=== PATIENT | male | born 1985 | race Two or more races ===

== ENCOUNTER 2020-03-27 23:35 | Emergency (ER) | payer MEDICAID, SELFPAY ==
[2020-03-28 00:21] VITALS: BP 178/91; PULSE 88; RESP 16; TEMP 36.2; O2SAT 97; BMI 43.4
--- NOTE | 2020-03-28 01:16 | ED_ITS ---
HPI - General Adult General Chief complaint: General Medical Stated complaint: MULTIPLE COMPLAINTS Time Seen by Provider: 03/28/20 01:15 History of Present Illness HPI narrative: Patient is a 34-year-old male with a history of diabetes presented today with having epigastric pain in the area near his ventral hernia repair. No fever no chills no cough no congestion. No nausea no vomiting. No change in stool color. Patient also complaining of bilateral leg swelling. No chest pain. No shortness of breath. No diaphoresis. No orthopnea. No paroxysmal nocturnal dyspnea. Patient's symptom has been ongoing for months. No changes in condition. Presented today because of these symptoms. There has been no change in patient's medication. Patient denies having any fever. Related Data Allergies Allergy/AdvReac Type Severity Reaction Status Date / Time lactose [LACTOSE] Allergy Intermediate GI UPSET Verified 03/28/20 00:30 Review of Systems Review of Systems: Constitutional: No Weight loss, No Fever, No Chills, No Night Sweats, No Fatigue, No Malaise ENT/Mouth: No Hearing loss, No Ear Pain, No Nasal Congestion, No Sinus Pain, No Hoarseness, No sore throat, No Rhinorrhea, No Swallowing Difficulty Eyes: No Eye Pain, No Swelling, No Redness, No Foreign Body, No Discharge, No Vision Changes Cardiovascular: No Chest Pain, No SOB, No Dyspnea on Exertion, No Orthopnea, No Edema, No Palpitations Respiratory: No Cough, No Sputum, No Wheezing, No Smoke Exposure, No Dyspnea Gastrointestinal: No Nausea, No Vomiting, No Diarrhea, No Constipation, positive abdominal Pain, No Hematochezia, No Melena Genitourinary: no irregular bleeding, No Dysuria, No Urinary Frequency, No Hematuria, No Urinary Incontinence, No Urgency, No Flank Pain, No Urinary Flow Changes, No Hesitancy Musculoskeletal: No joint pain, No Myalgias, No Joint Swelling Skin: No Skin Lesions, positive bilateral lower extremity swelling Neuro: No Weakness, No Numbness, No Paresthesias, No Loss of Consciousness, No Dizziness, No Headache Psych: No Anxiety/Panic, No Depression, No SI/HI/AH/VH, No Social Issues, Heme/Lymph: No Bruising, No Bleeding,No Lymphadenopathy Endocrine: No Polyuria, No Polydipsia, No Temperature Intolerance [facility] Past Medical History Attestation statement: The following information was validated with the patient. Medical History Borderline diabetes Hypertension Pelvic fracture Sleep apnea Surgical History History of hernia repair Social History Social History Advance Directives: No Advance Directives Information Provided: No Physical Exam Vital Signs: Vital Signs: Last Vital Signs Temp 97.9 F 03/28/20 04:33 Pulse 70 03/28/20 04:33 Resp 18 03/28/20 04:33 BP 138/90 H 03/28/20 04:33 Pulse Ox 96 03/28/20 04:33 Body Mass Index 43.4 Appearance: Alert. Oriented X3. No acute distress. Eyes: Pupils equal, round and reactive to light. ENT: Pharynx normal. Neck: Normal inspection. Neck supple. No lymph nodes noted. No crepitus CVS: Normal heart rate and rhythm. Pulses normal. Normal S1 and S2 Respiratory: No respiratory distress. Breath sounds normal. No Wheezing. No ra les Abdomen: Positive old midline scar, Soft and nontender. No rigidity. No distention. good BS x4 Skin: Skin warm and dry. Normal skin color. Normal skin turgor. Extremities: Positive lower extremity edema. Neurovascular intact to all extremities. No Lacerations. No Rash Neuro: Oriented X 3. No motor deficit. No sensory deficit. Moving all extermities. No slurred speech Medical Decision Making MDM Narrative Medical decision making narrative: CT of the abdomen did not show any acute absc ess/perforation. Ventral hernia noted. No evidence for obstruction. Patient in no distress. BNP was normal. No evidence for congestive heart failure. Patient's legs swelling has been chronic in nature. LFTs are normal. Unlikely to be secondary DVT as it was bilateral. Will discharge patient home. Close follow-up on an outpatient basis. Lab Data Result diagrams: 03/28/20 02:08 03/28/20 02:08 Labs: Lab Results 03/28/20 03/28/20 03/28/20 Range/Units 02:08 02:08 02:08 WBC 10.0 (4.8-10.8) X10*3/uL RBC 4.68 (4.60-5.80) X10*6/uL Hgb 13.2 L (14.0-18.0) g/dl Hct 40.3 L (42-52) % MCV 86.1 (80-98) fL MCH 28.2 (27.0-33.0) pg MCHC 32.8 (31.0-36.0) g/dl RDW 13.3 (11.0-16.0) % Plt Count 234 (160-400) X10*3/uL MPV 9.9 (9.4-12.4) fL Immature Gran % (Auto) 0.7 H (0.0-0.4) % Neut % (Auto) 52.0 (45-73) % Lymph % (Auto) 34.7 (20-40) % [place] % (Auto) 10.1 (2-11) % Eos % (Auto) 2.0 (0-4) % Baso % (Auto) 0.5 (0-2) % Lymph # (Auto) 3.5 (1.2-4.9) X10*3/uL [place] # (Auto) 1.0 (0.1-1.2) X10*3/uL Eos # (Auto) 0.2 (0.0-0.4) X10*3/uL Baso # (Auto) 0.1 (0.0-0.2) X10*3/uL Abs Immat Gran (auto) 0.07 H (0.00-0.03) X10*3/uL Absolute Neuts (auto) 5.2 (2.0-8.3) X10*3/uL Absolute Nucleated RBC 0.000 (0.0-0.012) X10*3/uL Nucleated RBC % (auto) 0.0 (0.0-0.2) /100WBC Sodium 137 (135-145) mmol/L Potassium 3.7 (3.3-5.1) mmol/l Chloride 101 (96-108) mmol/L Carbon Dioxide 27 (22-29) mmol/L Anion Gap 13 (12-20) BUN 16 (9-16) mg/dL Creatinine 0.88 (0.5-1.4) mg/dL Estim Creat Clear Calc 157.1 Estimated GFR > 60 Random Glucose 120 H (60-115) mg/dL Calcium 8.1 L (8.4-10.2) mg/dL Total Bilirubin 0.2 (0.0-1.0) mg/dL Direct Bilirubin < 0.2 (0.0-0.5) mg/dL AST 27 (5-37) U/L ALT 51 H (0-40) U/L Alkaline Phosphatase 85 (39-117) U/L B-Natriuretic Peptide 32 (<100) pg/mL Total Protein 6.7 (6.5-8.0) g/dL Albumin 4.1 (3.5-5.0) g/dL Lipase 26 (8-78) U/L Urine Color Urine Appearance Urine pH (5.0-8.0) Ur Specific [place] (1.005-1.025) Urine Protein (NEG-TRACE) MG/DL Urine Glucose (UA) (NEG) MG/DL Urine Ketones (NEG) MG/DL Urine Blood (NEG) Urine Nitrite (NEG) Ur Leukocyte Esterase (NEG) 03/28/20 Range/Units 04:23 WBC (4.8-10.8) X10*3/uL RBC (4.60-5.80) X10*6/uL Hgb (14.0-18.0) g/dl Hct (42-52) % MCV (80-98) fL MCH (27.0-33.0) pg MCHC (31.0-36.0) g/dl RDW (11.0-16.0) % Plt Count (160-400) X10*3/uL MPV (9.4-12.4) fL Immature Gran % (Auto) (0.0-0.4) % Neut % (Auto) (45-73) % Lymph % (Auto) (20-40) % [place] % (Auto) (2-11) % Eos % (Auto) (0-4) % Baso % (Auto) (0-2) % Lymph # (Auto) (1.2-4.9) X10*3/uL [place] # (Auto) (0.1-1.2) X10*3/uL Eos # (Auto) (0.0-0.4) X10*3/uL Baso # (Auto) (0.0-0.2) X10*3/uL Abs Immat Gran (auto) (0.00-0.03) X10*3/uL Absolute Neuts (auto) (2.0-8.3) X10*3/uL Absolute Nucleated RBC (0.0-0.012) X10*3/uL Nucleated RBC % (auto) (0.0-0.2) /100WBC Sodium (135-145) mmol/L Potassium (3.3-5.1) mmol/l Chloride (96-108) mmol/L Carbon Dioxide (22-29) mmol/L Anion Gap (12-20) BUN (9-16) mg/dL Creatinine (0.5-1.4) mg/dL Estim Creat Clear Calc Estimated GFR Random Glucose (60-115) mg/dL Calcium (8.4-10.2) mg/dL Total Bilirubin (0.0-1.0) mg/dL Direct Bilirubin (0.0-0.5) mg/dL AST (5-37) U/L ALT (0-40) U/L Alkaline Phosphatase (39-117) U/L B-Natriuretic Peptide (<100) pg/mL Total Protein (6.5-8.0) g/dL Albumin (3.5-5.0) g/dL Lipase (8-78) U/L Urine Color YELLOW Urine Appearance CLEAR Urine pH 6.5 (5.0-8.0) Ur Specific [place] 1.025 (1.005-1.025) Urine Protein NEG (NEG-TRACE) MG/DL Urine Glucose (UA) NEG (NEG) MG/DL Urine Ketones NEG (NEG) MG/DL Urine Blood NEG (NEG) Urine Nitrite NEG (NEG) Ur Leukocyte Esterase NEG (NEG) Discharge Plan Discharge Clinical Impression: Ventral hernia Patient Disposition: Home, Self-Care Instructions: Leg Edema (ED), Ventral Hernia (ED) Referrals: [facility] [Primary Care Provider] - 2 days
--- NOTE | 2020-03-28 01:24 | CT_ITS ---
EXAMINATION: CT ABDOMEN AND PELVIS WITH CONTRAST CLINICAL INFORMATION: Abdominal pain. COMPARISON: 02/25/2019. TECHNIQUE: Contiguous axial thin section helical images of the abdomen and pelvis were performed following the administration of 85 mL of intravenous Omnipaque 350. The data set was reformatted in the coronal and sagittal planes and reviewed on an independent workstation. DLP: 1095 mGy-cm. FINDINGS: The visualized lung bases are clear. The visualized portions of the heart are unremarkable. The liver is of normal size and attenuation without focal lesions nor intrahepatic biliary ductal dilation. A normal gallbladder is identified. There is no wall thickening or discernible pericholecystic fluid. The spleen, pancreas, adrenal glands are unremarkable. Both kidneys are of normal size and attenuation without hydronephrosis or nephrolithiasis. Following the administration of IV contrast, prompt symmetric nephrograms are displayed. There is no abdominal free fluid. There is neither mesenteric nor retroperitoneal lymphadenopathy. Again identified is a fat-containing supraumbilical midline ventral hernia with infiltration noted about the herniated fat. There is no bowel herniation. Normal unopacified loops of small and large bowel are identified. There is no pelvic free fluid. The urinary bladder is unremarkable. There is neither pelvic nor inguinal lymphadenopathy. Bone windows: Neither sclerotic nor lytic bone lesions are identified. CT/CT abdomen pelvis w con IMPRESSION: Fat-containing supraumbilical midline ventral hernia with fatty infiltration. No evidence for bowel herniation or obstruction. Automated exposure control (Care Dose) Adjustment of the mA and/or kv according to patient size (this includes techniques or standardized protocols for targeted exams where dose is matched to indication / reason for exam; i.e. extremities or head).
[2020-03-28 02:17] VITALS: BP 141/69; PULSE 72; RESP 17; TEMP 36.8; O2SAT 96
[2020-03-28 02:26] LABS: Basophils Absolute Auto 0.1 X10*3/uL (0.0-0.2); Basophils Percent Auto 0.5 % (0-2); Eosinophils Absolute Auto 0.2 X10*3/uL (0.0-0.4); Hematocrit 40.3 % (42-52); Hemoglobin 13.2 g/dl (14.0-18.0); Imm Gran Abs Auto 0.07 X10*3/uL (0.00-0.03); Imm Gran Pct Auto 0.7 % (0.0-0.4); Lymphocytes Absolute Auto 3.5 X10*3/uL (1.2-4.9); Lymphocytes Percent Auto 34.7 % (20-40); Mean Corpuscular HGB Conc 32.8 g/dl (31.0-36.0); Mean Corpuscular Hemoglobin 28.2 pg (27.0-33.0); Mean Corpuscular Volume 86.1 fL (80-98); Mean Platelet Volume 9.9 fL (9.4-12.4); Monocytes Percent Auto 10.1 % (2-11); Neutrophils Absolute Auto 5.2 X10*3/uL (2.0-8.3); Platelet Count 234 X10*3/uL (160-400); Red Blood Count 4.68 X10*6/uL (4.60-5.80); Red Cell Distribution Width 13.3 % (11.0-16.0)
[2020-03-28 02:27] LABS: MANUAL DIFF FLAG NO
[2020-03-28] MEDS: ondansetron HCL 4 MG/2 ML VIAL IVPUSH (02:41)
[2020-03-28] MEDS: 0.9 % Sodium Chloride 1,000 ML 999 ML IVCONT (02:41)
--- NOTE | 2020-03-28 02:41 | PC.NURSE ---
Pt medicated with Normal Saline 1Liter and Zofran 4mg as ordered. 20gauge IV access established in left AC.
[2020-03-28 02:55] LABS: Alanine Aminotransferase 51 U/L (0-40); Albumin Level 4.1 g/dL (3.5-5.0); Alkaline Phosphatase 85 U/L (39-117); Anion Gap 13 (12-20); Aspartate Amino Transferase 27 U/L (5-37); Bilirubin Direct < 0.2 mg/dL (0.0-0.5); Bilirubin Total 0.2 mg/dL (0.0-1.0); Blood Urea Nitrogen 16 mg/dL (9-16); Calcium 8.1 mg/dL (8.4-10.2); Carbon Dioxide 27 mmol/L (22-29); Chloride 101 mmol/L (96-108); Creatinine Clr Calc Pharmacy 157.1; Estimated Glomerular Filt Rate > 60; Glucose Random 120 mg/dL (60-115); Lipase 26 U/L (8-78); Potassium 3.7 mmol/l (3.3-5.1); Sodium 137 mmol/L (135-145); Total Protein 6.7 g/dL (6.5-8.0)
[2020-03-28 02:58] LABS: B Type Natriuretic Peptide 32 pg/mL (<100)
[2020-03-28] MEDS: iohexoL 350 MG/ML 100 ML INFUS..BTL 85 ML IV (03:18)
[2020-03-28 04:33] VITALS: BP 138/90; PULSE 70; RESP 18; TEMP 36.6; O2SAT 96
[2020-03-28 04:57] LABS: Glucose Urine UA NEG (NEG); Leukocyte Esterase Urine NEG (NEG); Nitrite Urine NEG (NEG); PH 6.5 (5.0-8.0); Specific Gravity - Urine 1.025 (1.005-1.025); Urine Blood NEG (NEG); Urine Ketones NEG (NEG); Urine Protein NEG (NEG-TRACE)
[2020-03-28 05:01] LABS: Appearance Urine CLEAR; Color Urine YELLOW
== END 2020-03-28 06:03 | disposition home or self-care (01) ==
PROVIDERS: Emergency Provider Emergency Medicine Emergency Medical Services
DX: K43.9 Ventral hernia without obstruction or gangrene (principal); M79.89 Other specified soft tissue disorders
CPT/HCPCS: 36415; 74177; 80048; 80076; 81003; 83690; 83880; 85025; 96361; 96374; 99284; J2405; Q9967

== ENCOUNTER → 2020-05-31 19:33 | Outpatient (REF) | payer MEDICAID, SELFPAY | LOC: HO.SL 19:33 | PROVIDERS: PCP Family Medicine; Visit Provider Family Medicine | DX: R06.83 Snoring (principal); G47.33 Obstructive sleep apnea (adult) (pediatric) | CPT/HCPCS: 95810 ==

== ENCOUNTER → 2020-08-10 15:24 | Outpatient (BNVA) | payer MEDICAID, SELFPAY | PROVIDERS: PCP Family Medicine; Visit Provider Internal Medicine | DX: G47.33 Obstructive sleep apnea (adult) (pediatric) (principal); G47.36 Sleep related hypoventilation in conditions classified elsewhere; E66.01 Morbid (severe) obesity due to excess calories; Z68.41 Body mass index [BMI] 40.0-44.9, adult; Z71.3 Dietary counseling and surveillance | CPT/HCPCS: 99202 ==

== ENCOUNTER 2020-10-07 16:29 | Emergency (ER) | payer MEDICAID, SELFPAY ==
[2020-10-07 16:58] VITALS: BP 106/68; PULSE 87; RESP 20; TEMP 36.3; O2SAT 97; BMI 45.8
--- NOTE | 2020-10-07 17:44 | ED.GENADULT ---
HPI - General Adult General Chief complaint: General Medical Stated complaint: high blood pressure Time Seen by Provider: 10/07/20 17:37 Source: patient Mode of arrival: ambulatory History of Present Illness HPI narrative: 35-year-old male with a past medical history of borderline diabetes, HTN, morbid obesity, TARA, sleep apnea, presenting to the ED complaining of left-sided neck pain/sore throat and swollen glands since last night. Admits pain radiates to ear and head. Denies difficulty/inability to swallow, fever, chills, hearing loss/drainage from ear, cough Onset (ago): day(s) Related Data Home Medications Medication Instructions Recorded Confirmed lisinopril 10 mg tablet 10 mg PO DAILY 08/10/20 Previous Rx's Medication Instructions Recorded acetaminophen [Tylenol Extra 500 mg PO Q6H PRN #20 tab 10/07/20 Strength] amoxicillin-pot clavulanate 1 tab PO Q12H 7 Days #14 tab 10/07/20 [Augmentin] ibuprofen 600 mg PO Q8H PRN #20 tab 10/07/20 Allergies Allergy/AdvReac Type Severity Reaction Status Date / Time lactose [LACTOSE] Allergy Intermediate GI UPSET Verified 08/10/20 15:36 Review of Systems Review of Systems: Constitutional: No Fever, No Chills ENT/Mouth: + Ear Pain, No Nasal Congestion, No Sinus Pain, No Hoarseness, + sore throat, No Rhinorrhea, No Swallowing Difficulty Cardiovascular: No Chest Pain, No SOB Respiratory: No Cough Musculoskeletal: No joint pain Skin: No Skin Lesions, No rash Yes all other systems are reviewed and are negative PMFSH Past Medical History Attestation statement: The following information was validated with the patient. Medical History (Updated 10/07/20 @ 17:49 by AKSHAT Myrick) Borderline diabetes Hypertension Morbid obesity Nocturnal hypoxemia due to obesity TARA (obstructive sleep apnea) Pelvic fracture Sleep apnea Surgical History History of cystoscopy History of hernia repair (08/08/13) History of incisional hernia repair (03/08/19) History of pelvic surgery (2003) History of removal of cyst Family History Family History Father History of liver cancer Maternal Uncle History of cancer of unknown primary site Social History Social History Alcohol intake: never Smoking Status: Never smoker Smoked in Last 30 Days: No Use of substances other than those prescribed or required for medical reasons: No Substance Use Type: Marijuana Advance Directives: No Advance Directives Information Provided: Yes Physical Exam Vital Signs: Vital Signs: Last Vital Signs Temp 97.3 F 10/07/20 16:58 Pulse 87 10/07/20 16:58 Resp 20 10/07/20 16:58 BP 106/68 10/07/20 16:58 Pulse Ox 97 10/07/20 16:58 Body Mass Index 45.8 Const: General: cooperative, healthy appearing and no acute distress Orientation/consciousness: patient oriented x3 Limitations: no limitations HENMT: Head: Yes normal to inspection and Yes atraumatic Ears: hearing grossly normal bilaterally, external ears normal and TM's normal bilaterally General nose exam: Normal external nose present Face and sinus: Yes normal facial exam Mouth: Normal oral and palatal mucosa present Throat: Yes posterior oropharynx normal, Yes tonsils normal, Yes uvula midline, No abnormal tonsil, No peritonsillar mass, No uvula laterally displaced and No uvular edema Eyes: General: appearance normal, both eyes and all related structures EOM: EOMs intact bilaterally Neck: Other: + left-sided submandibular and anterior cervical lymphadenopathy Neck: Yes no meningeal signs, No anterior neck swelling and Yes lymphadenopathy Chest: Chest palpation & inspection: normal inspection of the chest Resp: Effort & Inspection: normal respiratory effort, no grunting and not labored Cardio: Rate: regular rate Heart sounds: S1 normal heart sound present and S2 normal heart sound present Skin: Rashes: no rashes Wounds: no wounds Neuro: General: patient oriented x3 and no meningeal signs Gait exam (Neuro): Normal gait present Extrem: General: Yes normal to inspection Medical Decision Making MDM Narrative Medical decision making narrative: 35-year-old male with a past medical history of borderline diabetes, HTN, morbid obesity, TARA, sleep apnea, presenting to the ED complaining of left-sided neck pain/sore throat and swollen glands since last night. On exam VSS, NAD/well-appearing, physical exam as above of consistent with unilateral lymphadenopathy, no evidence strep pharyngitis or [employer]. TMs WNL With shared decision making will treat patient with Augmentin prophylactically Discharge Plan Discharge Clinical Impression: Lymphadenopathy Patient Disposition: Home, Self-Care Instructions: Lymphadenopathy (ED) Additional Instructions: You one-sided lymph node swelling Augmentin is an antibiotic, take as prescribed Take Tylenol and Motrin at home for swelling and pain Follow-up with her doctor Worsens, becomes unbearable, you develop fever, difficulty or inability to swallow, or difficulty breathing return to the ED immediately Prescriptions: New acetaminophen [Tylenol Extra Strength] 500 mg tablet 500 mg PO Q6H PRN (Reason: pain or fever) Qty: 20 RF: 0 amoxicillin-pot clavulanate [Augmentin] 875-125 mg tablet 1 tab PO Q12H 7 Days Qty: 14 RF: 0 ibuprofen 600 mg tablet 600 mg PO Q8H PRN (Reason: fever or pain) Qty: 20 RF: 0 No Action lisinopril 10 mg tablet 10 mg PO DAILY RF: 0 Referrals: Jaclyn Santos MD [Primary Care Provider] - 2 days
[2020-10-07 18:28] LABS: IDNOW Serial# 9DD0AD1C; Strep A Nucleic Acid Negative (Negative)
== END 2020-10-07 19:09 | disposition home or self-care (01) ==
PROVIDERS: Physician Assistant; Emergency Provider Emergency Medicine; PCP Family Medicine
DX: R59.1 Generalized enlarged lymph nodes (principal); M54.2 Cervicalgia; H92.03 Otalgia, bilateral; R51.9 Headache, unspecified; E11.9 Type 2 diabetes mellitus without complications; I10 Essential (primary) hypertension; F12.90 Cannabis use, unspecified, uncomplicated; Z79.899 Other long term (current) drug therapy
CPT/HCPCS: 36415; 87651; 99284

== ENCOUNTER 2021-02-25 13:27 | Outpatient (REF) | payer MEDICAID, SELFPAY ==
--- NOTE | ~2021-02-25 | US_ITS ---
EXAMINATION: US PELVIS, LIMITED/FOLLOW UP CLINICAL INFORMATION: Increasing abdominal pain in area of old incisional hernia and increasing pain in the right groin. COMPARISON: Previous CT of the abdomen and pelvis most recent March 2020. TECHNIQUE: Ultrasound of the periumbilical region and the right groin. FINDINGS: There are two areas suggestive of hernias in the umbilical region measuring 3.5 cm and 1.6 cm. No right groin hernia is appreciated by ultrasound. US/US pelvic limited IMPRESSION: Two abdominal wall hernias. No right groin hernia seen.
== END 2021-02-25 13:28 | disposition home or self-care (01) ==
LOC: HO.HMGCX 13:27
PROVIDERS: PCP Nurse Practitioner Primary Care; Visit Provider Nurse Practitioner Primary Care
DX: K43.2 Incisional hernia without obstruction or gangrene (principal)
CPT/HCPCS: 76857

== ENCOUNTER → 2021-04-19 15:14 | Outpatient (BNVA) | payer MEDICAID, SELFPAY | PROVIDERS: PCP Nurse Practitioner Primary Care; Visit Provider Internal Medicine | DX: G47.33 Obstructive sleep apnea (adult) (pediatric) (principal); E66.01 Morbid (severe) obesity due to excess calories; G47.36 Sleep related hypoventilation in conditions classified elsewhere; Z68.41 Body mass index [BMI] 40.0-44.9, adult | CPT/HCPCS: 99212 ==

== ENCOUNTER → 2021-06-21 10:57 | Outpatient (BNVA) | payer MEDICAID, SELFPAY | PROVIDERS: PCP Nurse Practitioner Primary Care; Visit Provider Internal Medicine | DX: G47.33 Obstructive sleep apnea (adult) (pediatric) (principal); G47.36 Sleep related hypoventilation in conditions classified elsewhere; E66.01 Morbid (severe) obesity due to excess calories; Z68.41 Body mass index [BMI] 40.0-44.9, adult; Z99.89 Dependence on other enabling machines and devices | CPT/HCPCS: 99212 ==

== ENCOUNTER 2021-09-22 11:00 | Outpatient (RCR) | payer MEDICAID, SELFPAY | END 2021-09-22 12:23 | disposition home or self-care (01) | LOC: HO.PTCHIC 11:00 | PROVIDERS: PCP Nurse Practitioner Primary Care; Visit Provider Nurse Practitioner Primary Care | DX: M25.561 Pain in right knee (principal) | CPT/HCPCS: 97110; 97161 ==

== ENCOUNTER → 2021-10-04 09:44 | Outpatient (BNVA) | payer MEDICAID, SELFPAY | PROVIDERS: PCP Nurse Practitioner Primary Care; Visit Provider Internal Medicine | DX: G47.33 Obstructive sleep apnea (adult) (pediatric) (principal); E66.01 Morbid (severe) obesity due to excess calories; G47.36 Sleep related hypoventilation in conditions classified elsewhere; Z68.41 Body mass index [BMI] 40.0-44.9, adult | CPT/HCPCS: 99212 ==

== ENCOUNTER → 2022-01-25 13:22 | Outpatient (BNVA) | payer MEDICAID, SELFPAY | PROVIDERS: PCP Nurse Practitioner Primary Care; Visit Provider Internal Medicine | DX: E66.01 Morbid (severe) obesity due to excess calories (principal); G47.33 Obstructive sleep apnea (adult) (pediatric); E66.9 Obesity, unspecified; G47.36 Sleep related hypoventilation in conditions classified elsewhere; Z68.42 Body mass index [BMI] 45.0-49.9, adult | CPT/HCPCS: 99212 ==

== ENCOUNTER → 2022-05-24 13:38 | Outpatient (BNVA) | payer MEDICAID, SELFPAY | PROVIDERS: PCP Nurse Practitioner Primary Care; Visit Provider Internal Medicine | DX: G47.33 Obstructive sleep apnea (adult) (pediatric) (principal); E66.01 Morbid (severe) obesity due to excess calories; G47.36 Sleep related hypoventilation in conditions classified elsewhere; I10 Essential (primary) hypertension; Z68.42 Body mass index [BMI] 45.0-49.9, adult; Z99.89 Dependence on other enabling machines and devices | CPT/HCPCS: 99212 ==

== ENCOUNTER → 2022-10-11 14:02 | Outpatient (BNVA) | payer MEDICAID, SELFPAY | PROVIDERS: PCP Nurse Practitioner Primary Care; Visit Provider Internal Medicine | DX: G47.33 Obstructive sleep apnea (adult) (pediatric) (principal); G47.36 Sleep related hypoventilation in conditions classified elsewhere; E66.01 Morbid (severe) obesity due to excess calories; Z68.42 Body mass index [BMI] 45.0-49.9, adult; Z99.89 Dependence on other enabling machines and devices | CPT/HCPCS: 99212 ==

== ENCOUNTER 2023-05-27 17:45 | Emergency (ER) | payer MEDICAID, SELFPAY ==
[2023-05-27 18:54] VITALS: BP 136/95; PULSE 96; RESP 18; TEMP 36.8; O2SAT 95; BMI 47.5
[2023-05-27 20:46] LABS: Alanine Aminotransferase 58 U/L (0-40); Albumin Level 4.5 g/dL (3.5-5.0); Alkaline Phosphatase 93 U/L (39-117); Aspartate Amino Transferase 34 U/L (5-37); Bilirubin Total 0.3 mg/dL (0.0-1.0); Blood Urea Nitrogen 18 mg/dL (9-16); Calcium 9.6 mg/dL (8.4-10.2); Carbon Dioxide 27 mmol/L (22-29); Creatinine Clr Calc Pharmacy 160.1; Estimated Glomerular Filt Rate > 60; Glucose Random 109 mg/dL (60-115)
[2023-05-27 22:11] LABS: Lipase 47 U/L (8-78)
[2023-05-27 22:26] LABS: Anion Gap 14 (12-20); Chloride 100 mmol/L (96-108); Potassium 3.9 mmol/L (3.3-5.1); Sodium 136 mmol/L (135-145)
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
[2023-05-28 00:52] VITALS: BP 132/78; PULSE 82; RESP 16; O2SAT 99
== END 2023-05-28 01:55 | disposition home or self-care (01) ==
PROVIDERS: Emergency Provider Emergency Medicine; PCP Nurse Practitioner Primary Care
DX: R10.30 Lower abdominal pain, unspecified (principal)
CPT/HCPCS: 36415; 74176; 80053; 81003; 83690; 85025; 99284

== ENCOUNTER 2023-09-28 13:05 | Outpatient (REF) | payer MEDICAID, SELFPAY ==
[2023-09-28 16:51] LABS: Anion Gap 14 (12-20); Blood Urea Nitrogen 13 mg/dL (9-16); Calcium 8.9 mg/dL (8.4-10.2); Carbon Dioxide 25 mmol/L (22-29); Chloride 103 mmol/L (96-108); Cholesterol 184 mg/dL (<200); Estimated Glomerular Filt Rate > 60; Glucose Random 106 mg/dL (60-115); HDL Cholesterol 45 mg/dL (>40); LDL Cholesterol Calculated 117 mg/dL (<100); Potassium 4.1 mmol/L (3.3-5.1); Sodium 138 mmol/L (135-145); Triglycerides 112 mg/dL (<150)
[2023-09-28 18:35] LABS: Microalbum/Creatinine Ratio Ur 127.4 ug/mg cr (<30)
[2023-09-29 04:07] LABS: HIV AB/AG Nonreactive (Nonreactive); HIV Num 1 0.05 S/CO (0.00-0.99); ~Hepatitis C Antibody Nonreactive (Nonreactive)
[2023-10-02 17:14] LABS: RPR Rapid Plasma Reagin NON-REACTIVE (NON-REACTIVE)
== END 2023-09-28 13:06 | disposition home or self-care (01) ==
LOC: HO.HHCL 13:05
PROVIDERS: Visit Provider Nurse Practitioner Primary Care
DX: Z11.3 Encounter for screening for infections with a predominantly sexual mode of transmission (principal); I10 Essential (primary) hypertension
CPT/HCPCS: 36415; 80048; 80061; 82043; 82570; 86592; 86803; 87389

== ENCOUNTER 2023-09-28 13:58 | Outpatient (REF) | payer MEDICAID, SELFPAY ==
--- NOTE | ~2023-09-28 | US_ITS ---
EXAMINATION: US VENOUS ULTRASOUND WITH DOPPLER LOWER EXTREMITY, BILATERAL CLINICAL INFORMATION: Right leg edema COMPARISON: None available. TECHNIQUE: Ultrasound of the deep veins is performed from the hip to the calf with compression sonography and color and pulse Doppler assessment. Spectral analysis with color-flow imaging is performed. FINDINGS: RIGHT: There is normal venous compression and respiratory variation and augmented flow. The visualized common femoral vein, superficial femoral vein, profunda femoral vein, popliteal vein, and the trifurcation region shows no evidence of deep venous thrombosis. There is no significant popliteal fossa cyst. LEFT: There is normal venous compression and respiratory variation and augmented flow. The visualized common femoral vein, superficial femoral vein, profunda femoral vein, popliteal vein, and the trifurcation region shows no evidence of deep venous thrombosis. There is no significant popliteal fossa cyst. If the patient's symptoms persist, followup ultrasound in 5 days 7 days might be of value to exclude proximal propagation from a non-visualized calf vein. US/US venous duplex LE BI IMPRESSION: No DVT demonstrated in the bilateral lower extremity.
== END 2023-09-28 13:59 | disposition home or self-care (01) ==
LOC: HO.US 13:58
PROVIDERS: Visit Provider Internal Medicine
DX: R60.0 Localized edema (principal)
CPT/HCPCS: 93970

== ENCOUNTER 2023-11-18 06:11 | Inpatient (IN) | payer MEDICAID, SELFPAY ==
[2023-11-18] VITALS (10 sets, daily range): BP systolic 99–149; BP diastolic 56–95; PULSE 75–110; RESP 16–20; TEMP 36.2–37.2; O2SAT 94–98; BMI 47.3; BMI 51.8; BMI 50.9
--- NOTE | ~2023-11-18 | CT_ITS ---
EXAMINATION: CT PELVIS WITH CONTRAST CLINICAL INFORMATION: Thigh abscess COMPARISON: Prior CT 10/26/2023. TECHNIQUE: Helical scanning was performed with submillimeter collimation through the pelvis with the use of oral contrast and during bolus intravenous injection of 85 mL of Omnipaque 350 intravenous contrast. Sagittal and coronal multiplanar 2-D reconstructions were obtained. This CT examination was performed using dose optimization techniques as appropriate, variously including the following: *Automated exposure control *Adjustment of mA and/or kV according to patient size (this includes techniques or standardized protocols for targeted exams where dose is matched to indication/reason for exam; i.e. extremities or head) *Use of iterative reconstruction technique DLP: 1535 mGy-cm FINDINGS: PELVIS: Rectum and perirectal fat are clear. Prostate and urinary bladder partially obscured by beam hardening artifact from hardware implants in the pubic bones. Visualized sigmoid colon unremarkable. No free air or fluid in the visualized portion of the abdomen and pelvis. Partially included anterior abdominal wall hernia the neck of which is wide 2.9 cm containing fat and mesentery. OSSEOUS STRUCTURES: Pelvic bones are intact. No fracture or dislocation. Both right and left femur are intact. Soft tissue: There is subcutaneous edema along the medial aspect of the right upper thigh, along with skin thickening, probably cellulitis, no CT evidence of loculated fluid collection abscess at this time. CT/CT pelvis w IV con IMPRESSION: 1. Subcutaneous edema and skin thickening along the medial aspect of the right upper thigh probably cellulitis, no CT evidence of loculated fluid collection abscess at this time. 2. Partially included anterior abdominal wall hernia containing fat and mesentery.
--- NOTE | 2023-11-18 06:44 | ED_ITS ---
HPI - Wound/Laceration General Chief Complaint: Wound/Laceration Stated Complaint: abscess Time Seen by Provider: 11/18/23 06:34 Source: patient Mode of arrival: ambulatory Limitations: no limitations History of Present Illness ED Provider: Wendy Lagunas APRN HPI narrative: 38 yr Old male with a history of prediabetes, hypertension, high cholesterol, obesity presents to the ER with complaints of right thigh/groin swelling and redness for 2 days. Patient reports history recurrent abscesses. He denies any fevers, chills, body aches, vomiting, headache, generalized malaise. He has been using warm compresses daily at home with continued swelling Related Data Home Medications ?Medication ?Instructions ?Recorded ?Confirmed lisinopril 20 1 tab PO DAILY 10/04/21 10/11/22 mg-hydrochlorothiazide 25 mg tablet rosuvastatin 20 mg tablet 20 mg PO BEDTIME 11/18/23 semaglutide (weight loss) 0.25 0.25 mg subcut QWEEK 11/18/23 mg/0.5 mL subcutaneous pen injector ([place]) Previous Rx's ?Medication ?Instructions ?Recorded acetaminophen 500 mg tablet 500 mg PO Q6H PRN pain or fever 10/07/20 (Tylenol Extra Strength) #20 tabs Allergies Allergy/AdvReac Type Severity Reaction Status Date / Time lactose [LACTOSE] Allergy Intermediate GI UPSET Verified 11/18/23 06:33 Review of Systems 2 Review of Systems: Yes all other systems are reviewed and are negative Constitutional: Constitutional: Reports no additional constitutional complaints, Denies body ache(s), Denies chills, Denies fever(s), Denies headache(s) and Denies weakness Eyes: Eyes: Reports no additional eye complaints and Denies change in vision ENT: Reports system reviewed and no additional complaints, except as documented, Denies dizziness, Denies headache(s), Denies nasal congestion, Denies nasal discharge and Denies neck pain Cardiovascular: Cardiovascular: Reports no additional cardiovascular complaints, Denies chest pain, Denies leg edema and Denies dyspnea Respiratory: Respiratory: Reports no additional respiratory complaints, Denies cough and Denies dyspnea Gastrointestinal: Gastrointestinal: Reports no additional gastrointestinal complaints, Denies abdominal pain, Denies diarrhea, Denies nausea and Denies vomiting Genitourinary: Genitourinary: Denies urinary incontinence Musculoskeletal: Musculoskeletal: Reports no additional musculoskeletal complaints, Denies back pain, Denies arthralgias, Denies joint swelling, Denies neck pain, Denies numbness and Denies tingling Integumentary/Breasts: Skin/Breast: Reports system reviewed and no additional complaints, except as docu, Reports swelling, Reports erythema and Denies rash Neurologic: Reports system reviewed and no additional complaints, except as documented, Denies Abnormal speech present, Denies dizziness, Denies headache(s), Denies numbness, Denies tingling and Denies weakness [facility] Past Medical History Attestation statement: The following information was validated with the patient. Source: old records reviewed and nursing notes reviewed Medical History Nocturnal hypoxemia due to obesity TARA (obstructive sleep apnea) Morbid obesity Sleep apnea Borderline diabetes Hypertension Pelvic fracture Surgical History History of incisional hernia repair (03/08/19) History of removal of cyst History of cystoscopy History of pelvic surgery (2003) History of hernia repair (08/08/13) Family History Family History Father History of liver cancer Maternal Uncle History of cancer of unknown primary site Social History Social History Alcohol intake: never Smoked in Last 30 Days: No Use of substances other than those prescribed or required for medical reasons: No Substance Use Type: Marijuana Advance Directives: No Physical Exam 2 Vital Signs: Vital Signs: Last Vital Signs Temp 97.4 F 11/18/23 10:22 Pulse 81 11/18/23 10:22 Resp 16 11/18/23 10:22 BP 99/58 L 11/18/23 10:22 Pulse Ox 97 11/18/23 10:22 O2 Del Method Room Air 11/18/23 10:22 BMI result Body Mass Index 47.3 Const: General: cooperative, healthy appearing, comfortable and no acute distress Orientation/consciousness: patient oriented x3 Limitations: no limitations HEENT: Head: Yes normal to inspection Ears: hearing grossly normal bilaterally General nose exam: Normal external nose present Face and sinus: Yes normal facial exam Mouth: Normal oral and palatal mucosa present Throat: Yes posterior oropharynx normal Eyes: General: appearance normal, both eyes and all related structures P upils: Equal, round and reactive pupils present Neck: Neck: Yes normal visual inspection Chest: Chest palpation & inspection: normal inspection of the chest Resp: Effort & Inspection: normal respiratory effort Auscultation: clear to auscultation bilaterally Cardio: Rate: regular rate Rhythm: regular rhythm Peripheral pulses: P eripheral pulses 2+ throughout GI: Inspection: Yes normal to inspection Palpation (GI): Soft to palpation and nontender Auscultation: normal bowel sounds Abdomen image: 1. Large area of swelling/redness and tenderness with no extension into perineum Back/Spine/Pelvis: Thoracic/Lumbar Spine: thoracic and lumbar spine normal to inspection Skin: General skin exam: no rashes or lesions noted Neuro: General: patient oriented x3, no focal motor deficits and normal sensation to monofilament Cranial nerves: Yes Equal, round and reactive pupils present Cognition (Neuro): normal cognition Speech: No Abnormal speech present Gait exam (Neuro): Normal gait present Motor exam (neuro): 5/5 motor strength present throughout Extrem: General: Yes normal to inspection Medications Administered Discontinued Medications Generic Name Dose Route Start Last Admin Trade Name Freq PRN Reason Stop Dose Admin Ceftriaxone Sodium 2 gm/ 50 mls @ 100 mls/hr 11/18/23 06:40 11/18/23 08:04 Sodium Chloride IV 11/18/23 07:09 Infused ONCE ONE Infusion Sodium Chloride 1,000 mls @ 999 mls/hr 11/18/23 06:41 11/18/23 09:51 Ns IV 11/18/23 07:41 Infused .Q1H1M STA Infusion Vancomycin HCl 2,000 mg in 500 mls @ 250 mls/hr 11/18/23 07:32 11/18/23 10:18 Vancomycin/Ns IV 11/18/23 09:31 Infused ONCE ONE Infusion Iohexol 100 ml 11/18/23 08:02 11/18/23 08:03 Iohexol 350 Mg/Ml 100 Ml Infus..Btl IV 11/18/23 08:03 85 ml ONCE ONE Administration Medical Decision Making Medical Decision Making MDM Narrative: 38 yr Old male with a history of prediabetes, hypertension, high cholesterol, obesity presents to the ER with complaints of right thigh/groin swelling and redness for 2 days. Patient reports history recurrent abscesses. He denies any fevers, chills, body aches, vomiting, headache, generalized malaise. He has been using warm compresses daily at home with continued swelling On exam the patient has a large area of redness, swelling and tenderness to the right inner thigh extending to the groin. There is no extension into the perineum. The patient is nontoxic, afebrile Will obtain labs, CT pelvis, at this time infection suspected. Antibiotics ordered Differential Diagnosis Differential Diagnoses: The differential diagnosis associated with the presentation includes Less likely [place]'s gangrene, necrotizing fasciitis Abscess, cellulitis Admission/Observation Consideration of admission/observation: Escalation of care including admission/observation considered Cellulitis with elevated lactic acid and leukocytosis with tachycardia meeting SIRS criteria and admission to the hospital with IV antibiotics Consult Healthcare Provider Management of the patient was discussed with: Hospitalist Lab Data MDM Lab Attestation statement: I reviewed the patient's lab results. 11/18/23 06:56 11/18/23 06:56 Labs: Lab Results 11/18/23 11/18/23 Range/Units 06:56 09:31 WBC 14.6 H (4.8-10.8) X10*3/uL RBC 5.19 (4.60-5.80) X10*6/uL Hgb 14.8 (14.0-18.0) g/dl Hct 44.2 (42.0-52.0) % MCV 85.2 (80.0-98.0) fL MCH 28.5 (27.0-33.0) pg MCHC 33.5 (31.0-36.0) g/dl RDW 14.2 (11.0-16.0) % Plt Count 242 (160-400) X10*3/uL MPV 9.6 (9.4-12.4) fL Immature Gran % (Auto) 0.5 H (0.0-0.4) % Neut % (Auto) 75.5 H (45-73) % Lymph % (Auto) 15.9 L (20-40) % [place] % (Auto) 6.4 (2-11) % Eos % (Auto) 1.2 (0-4) % Baso % (Auto) 0.5 (0-2) % Lymph # (Auto) 2.3 (1.2-4.9) X10*3/uL [place] # (Auto) 0.9 (0.1-1.2) X10*3/uL Eos # (Auto) 0.2 (0.0-0.4) X10*3/uL Baso # (Auto) 0.1 (0.0-0.2) X10*3/uL Abs Immat Gran (auto) 0.07 H (0.00-0.03) X10*3/uL Absolute Neuts (auto) 11.0 H (2.0-8.3) x10*3/uL Absolute Nucleated RBC 0.000 (0.0-0.012) X10*3/uL Nucleated RBC % (auto) 0.0 (0.0-0.2) /100WBC ESR 11 (0-15) MM/HR Hold Purple Top SEE NOTE PT 12.4 (11.1-13.3) SEC INR 1.0 (0.9-1.1) Sodium 134 L (135-145) mmol/L Potassium 3.9 (3.3-5.1) mmol/L Chloride 104 (96-108) mmol/L Carbon Dioxide 18 L (22-29) mmol/L Anion Gap 16 (12-20) BUN 14 (9-16) mg/dL Creatinine 0.93 (0.5-1.4) mg/dL Estim Creat Clear Calc 150.0 Estimated GFR > 60 Random Glucose 192 H (60-115) mg/dL Lactic Acid 3.0 H* (0.5-2.0) mmol/L Lactic Acid F/U @ 2Hr 1.2 (0.5-2.0) mmol/L Calcium 9.2 (8.4-10.2) mg/dL Total Bilirubin 0.6 (0.0-1.0) mg/dL Direct Bilirubin 0.2 (0.0-0.5) mg/dL AST 27 (5-37) U/L ALT 51 H (0-40) U/L Alkaline Phosphatase 87 (39-117) U/L Total Creatine Kinase 160 (38-174) U/L C-Reactive Protein 3.45 H (< or = 0.50) mg/dL Total Protein 7.3 (6.5-8.0) g/dL Albumin 4.0 (3.5-5.0) g/dL Independent Interpretation I performed an independent interpretation of an: CT Scan Interpretation: I independetely reviewed the CT scan and agree with the rad report Radiology Impression Discussion of test interpretation with radiology: I have reviewed the radiologist's reading. Radiologist Impression: [address] [address] [address] Scan Report Signed Patient: Pete Smith MR#: [id number] : 1985 Acct:[id number] Age/Sex: 38 / M ADM Date: 11/18/23 Loc: HO.ED Attending Dr: Ordering Physician: Wendy Barkley NP Date of Service: 11/18/23 Procedure(s): CT pelvis w IV con Accession Number(s): [id number] cc: ROSE RO NP; Wendy Barkley NP~ EXAMINATION: CT PELVIS WITH CONTRAST CLINICAL INFORMATION: Thigh abscess COMPARISON: Prior CT 10/26/2023. TECHNIQUE: Helical scanning was performed with submillimeter collimation through the pelvis with the use of oral contrast and during bolus intravenous injection of 85 mL of Omnipaque 350 intravenous contrast. Sagittal and coronal multiplanar 2-D reconstructions were obtained. This CT examination was performed using dose optimization techniques as appropriate, variously including the following: *Automated exposure control *Adjustment of mA and/or kV according to patient size (this includes techniques or standardized protocols for targeted exams where dose is matched to indication/reason for exam; i.e. extremities or head) *Use of iterative reconstruction technique DLP: 1535 mGy-cm FINDINGS: PELVIS: Rectum and perirectal fat are clear. Prostate and urinary bladder partially obscured by beam hardening artifact from hardware implants in the pubic bones. Visualized sigmoid colon unremarkable. No free air or fluid in the visualized portion of the abdomen and pelvis. Partially included anterior abdominal wall hernia the neck of which is wide 2.9 cm containing fat and mesentery. OSSEOUS STRUCTURES: Pelvic bones are intact. No fracture or dislocation. Both right and left femur are intact. Soft tissue: There is subcutaneous edema along the medial aspect of the right upper thigh, along with skin thickening, probably cellulitis, no CT evidence of loculated fluid collection abscess at this time. CT/CT pelvis w IV con IMPRESSION: 1. Subcutaneous edema and skin thickening along the medial aspect of the right upper thigh probably cellulitis, no CT evidence of loculated fluid collection abscess at this time. 2. Partially included anterior abdominal wall hernia containing fat and mesentery. Prescription Management I considered prescription management with: Antibiotic Critical Care Time Critical Care Time Critical Care Time: Yes Total Critical Care Time: 60 Attestation: Cellulitis requiring IV antibiotics, discussion with hospitalist for admission Discharge Plan Discharge Clinical Impression: Cellulitis, Leukocytosis, Elevated lactic acid level Patient Disposition: Admitted As Inpatient
[2023-11-18 07:04] LABS: MANUAL DIFF FLAG NO
[2023-11-18 07:13] LABS: Prothrombin Time 12.4 SEC (11.1-13.3)
[2023-11-18] MEDS: 0.9 % Sodium Chloride 1,000 ML 999 ML IV (07:13)
[2023-11-18] MEDS: cefTRIAXone sodium 2 GM in 0.9 % Sodium Chloride 50 ML IV (07:15)
[2023-11-18 07:16] LABS: Basophils Absolute Auto 0.1 X10*3/uL (0.0-0.2); Basophils Percent Auto 0.5 % (0-2); Eosinophils Absolute Auto 0.2 X10*3/uL (0.0-0.4); Eosinophils Percent Auto 1.2 % (0-4); Hematocrit 44.2 % (42.0-52.0); Hemoglobin 14.8 g/dl (14.0-18.0); Imm Gran Abs Auto 0.07 X10*3/uL (0.00-0.03); Imm Gran Pct Auto 0.5 % (0.0-0.4); Lymphocytes Absolute Auto 2.3 X10*3/uL (1.2-4.9); Lymphocytes Percent Auto 15.9 % (20-40); Mean Corpuscular HGB Conc 33.5 g/dl (31.0-36.0); Mean Corpuscular Hemoglobin 28.5 pg (27.0-33.0); Mean Corpuscular Volume 85.2 fL (80.0-98.0); Mean Platelet Volume 9.6 fL (9.4-12.4); Monocytes Absolute Auto 0.9 X10*3/uL (0.1-1.2); Monocytes Percent Auto 6.4 % (2-11); Neutrophils Percent Auto 75.5 % (45-73); Platelet Count 242 X10*3/uL (160-400); Red Blood Count 5.19 X10*6/uL (4.60-5.80); Red Cell Distribution Width 14.2 % (11.0-16.0); White Blood Count 14.6 X10*3/uL (4.8-10.8)
[2023-11-18 07:34] LABS: Alanine Aminotransferase 51 U/L (0-40); Alkaline Phosphatase 87 U/L (39-117); Anion Gap 16 (12-20); Aspartate Amino Transferase 27 U/L (5-37); Bilirubin Direct 0.2 mg/dL (0.0-0.5); Bilirubin Total 0.6 mg/dL (0.0-1.0); Blood Urea Nitrogen 14 mg/dL (9-16); C Reactive Protein 3.45 mg/dL (< or = 0.50); Calcium 9.2 mg/dL (8.4-10.2); Carbon Dioxide 18 mmol/L (22-29); Chloride 104 mmol/L (96-108); Estimated Glomerular Filt Rate > 60; Glucose Random 192 mg/dL (60-115); Potassium 3.9 mmol/L (3.3-5.1); Sodium 134 mmol/L (135-145); Total Protein 7.3 g/dL (6.5-8.0)
[2023-11-18 07:57] LABS: Erythrocyte Sedimentation Rate 11 MM/HR (0-15)
[2023-11-18] MEDS: iohexoL 350 MG/ML 100 ML INFUS..BTL IV (08:03)
[2023-11-18] MEDS: vancomycin/NS 2,000 MG/500 ML PLAST..BAG 250 MG IV (08:09)
[2023-11-18 09:03] LABS: Reflex Lactate? Lactic Acid Added
[2023-11-18 09:51] LABS: ~Lactic Acid-LAB USE ONLY 1.2 mmol/L (0.5-2.0)
--- NOTE | 2023-11-18 11:12 | P.HPHOSP_ITS ---
<Statement entered by Myah Gomez MD - 11/20/23 15:26> the patient was seen and evaluated with AKSHAT Mary. I agree with her note, assessment and plan with the following. In summary, a 38 YO male with PMH of hypertension, TARA, prediabetes who presents erythema and pain in right upper thigh found to have cellulitis. Sepsis 2/[address] scan did not show any drainable fluid collection Start IV vancomycin Rest of evaluations by PA note. History of Present Illness Date of Service: 11/18/23 Attending physician on admission: Myah Gomez Chief Complaint: cellulitis This is a 38-year-old male who presents to the emergency department with 2 day history of right upper thigh swelling and pain. He reports history of skin abscesses in the past. He has been using warm compresses at home with no significant improvement. He denies any associated fever or chills. In the emergency department his heart rate was elevated. Lab work was significant for leukocytosis of 14.6, lactic acid 3.0. He had a CT scan of the pelvis which showed subcutaneous edema and skin thickening along the medial aspect of the right upper thigh likely cellulitis, no evidence of fluid collection. In the emergency department he received IV ceftriaxone and IV vancomycin and the decision was made to admit him for further management of cellulitis Review of Systems 2 Review of Systems: Yes all other systems are reviewed and are negative Constitutional: Constitutional: Denies chills and Denies fever(s) ENT: Denies dizziness Cardiovascular: Cardiovascular: Denies chest pain Neurologic: Denies dizziness [facility] Medical History Nocturnal hypoxemia due to obesity TARA (obstructive sleep apnea) Morbid obesity Sleep apnea Borderline diabetes Hypertension Pelvic fracture Family History Father History of liver cancer Maternal Uncle History of cancer of unknown primary site Pertinent family history: mom - diabetes Surgical History History of incisional hernia repair (03/08/19) History of removal of cyst History of cystoscopy History of pelvic surgery (2003) History of hernia repair (08/08/13) Social History Alcohol intake: never Smoked in Last 30 Days: No Use of substances other than those prescribed or required for medical reasons: No Substance Use Type: Marijuana Advance Directives: No Meds Allergies Allergy/AdvReac Type Severity Reaction Status Date / Time lactose [LACTOSE] Allergy Intermediate GI UPSET Verified 11/18/23 06:33 Active Medications: Current Medications Acetaminophen (Acetaminophen 325 Mg Tablet) 650 mg PO Q6H PRN PRN Reason: Pain, Mild (Pain Scale 1-3), fever or headache Calcium Carbonate (Calcium Carbonate 750 Mg Tab.Chew) 750 mg PO Q4H PRN PRN Reason: Heartburn Docusate Sodium (Docusate Sodium 100 Mg Capsule) 100 mg PO BID SAVANNAH Oxycodone HCl (Oxycodone Hcl Immed Release 5 Mg Tablet) 5 mg PO Q6H PRN PRN Reason: Pain, Moderate(Pain Scale 4-6) Pharmacy Consult (Consult Rx Vancomycin Dosing) 1 each MISCELLANE DAILY PRN PRN Reason: Consult order Polyethylene Glycol (Polyethylene Glycol 3350 17 Gm Powd.Pack) 17 gm PO DAILY PRN PRN Reason: Constipation Sodium Chloride (0.9 % Sodium Chloride Flush 3 Ml Syringe) [address] [facility] Home Medications ?Medication ?Instructions ?Recorded ?Confirmed ?Last Taken ?Type lisinopril 20 1 tab PO DAILY 10/04/21 11/18/23 11/18/23 History mg-hydrochlorothiazide 25 mg tablet acetaminophen 500 mg tablet 1,000 mg PO Q6H PRN pain or fever 11/18/23 11/18/23 Unknown History (Tylenol Extra Strength) ibuprofen 200 mg tablet 400 mg PO Q8H PRN Pain 11/18/23 11/18/23 11/17/23 History rosuvastatin 20 mg tablet 20 mg PO BEDTIME 11/18/23 11/18/23 11/17/23 History semaglutide (weight loss) 0.25 0.25 mg subcut TU@0900 11/18/23 11/18/23 Unknown History mg/0.5 mL subcutaneous pen injector ([place]) Physical Exam 2 Vital Signs and Narrative: Vital Signs: Last Vital Signs Temp 97.4 F 11/18/23 10:22 Pulse 81 11/18/23 10:22 Resp 16 11/18/23 10:22 BP 99/58 L 11/18/23 10:22 Pulse Ox 97 11/18/23 10:22 O2 Del Method Room Air 11/18/23 10:22 BMI result Body Mass Index 47.3 Const: General: cooperative, comfortable and no acute distress; No alert or awake Nutritional Appearance: obese Orientation/consciousness: patient oriented x3 Resp: Effort & Inspection: normal respiratory effort Cardio: Rate: regular rate GI: Inspection: No distended and Yes obesity Palpation (GI): Soft to palpation and nontender Skin: Other: right upper inner thigh induration, warm and tenderness to palpation. no fluctuance, there doesn't appear to be any focal abscess Neuro: General: patient oriented x3, moves all extremities and CN's II-XI intact bilaterally Extrem: General: Yes no pedal edema Results Labs 11/18/23 06:56 11/18/23 06:56 Labs: Laboratory Results - last 24 hr 11/18/23 11/18/23 06:56 09:31 MCV 85.2 MCH 28.5 MCHC 33.5 RDW 14.2 Plt Count 242 MPV 9.6 Immature Gran % (Auto) 0.5 H Neut % (Auto) 75.5 H Lymph % (Auto) 15.9 L [place] % (Auto) 6.4 Eos % (Auto) 1.2 Baso % (Auto) 0.5 Lymph # (Auto) 2.3 [place] # (Auto) 0.9 Eos # (Auto) 0.2 Baso # (Auto) 0.1 Abs Immat Gran (auto) 0.07 H Absolute Neuts (auto) 11.0 H Absolute Nucleated RBC 0.000 Nucleated RBC % (auto) 0.0 ESR 11 Hold Purple Top SEE NOTE PT 12.4 INR 1.0 Anion Gap 16 Estim Creat Clear Calc 150.0 Estimated GFR > 60 Random Glucose 192 H Lactic Acid 3.0 H* Lactic Acid F/U @ 2Hr 1.2 Calcium 9.2 Total Bilirubin 0.6 Direct Bilirubin 0.2 AST 27 ALT 51 H Alkaline Phosphatase 87 Total Creatine Kinase 160 C-Reactive Protein 3.45 H Total Protein 7.3 Albumin 4.0 Imaging Radiologist's Impressions: Impressions Pelvis CT 11/18/23 08:27 IMPRESSION: 1. Subcutaneous edema and skin thickening along the medial aspect of the right upper thigh probably cellulitis, no CT evidence of loculated fluid collection abscess at this time. 2. Partially included anterior abdominal wall hernia containing fat and mesentery. Assessment and Plan (1) Cellulitis: Status: Acute Plan This is a 38-year-old morbidly obese male with history of hypertension, TARA, reported prediabetes who presents with 2 day history of redness warmth and pain in his right upper thigh found to have cellulitis Sepsis due to right thigh cellulitis Meets sepsis criteria with tachycardia, leukocytosis. Lactic acid elevated at 3.0. Sepsis focused exam completed. Received IV fluid in the emergency department CT scan with no drainable fluid collection Continue IV fluid, IV vancomycin Follow blood culture results Prediabetes We will check hemoglobin A1c Hypertension with hypotension hold lisinopril, HCTZ follow BP closely HLD continue statin elevated ALT chronically elevated likely due to NAFLD TARA CPAP at night and with naps Morbid obesity Likely due to excessive calories BMI 47.3 We loss encouraged - on wegovy for weight loss DVT ppx - Lovenox Patient will likely require 2 midnight stay in the hospital for management of sepsis/cellulitis for IV antibiotics Quality Stroke Does the patient have a stroke diagnosis?: No VTE Prior VTE?: No VTE Risk Level:: Medical - moderate - high VTE Device Contraindication: N/A - Device Ordered VTE Drug Contraindication: N/A - Med Ordered
[2023-11-18 11:21] LABS: Estimated Average Glucose 151 mg/dL; Hemoglobin A1c % 6.9 % (<6.0)
--- NOTE | 2023-11-18 11:33 | PHA.MEDREC ---
Pharmacy Consult ? Medication Reconciliation Pharmacy has completed the medication reconciliation.
--- NOTE | 2023-11-18 11:44 | PHA.PROG ---
Admission Date/Time: November 18, 2023 11:07 Indication: SSTI Weight in k.1 kg Adjusted body weight in K KG [place] body weight in K.7 KG Obesity Dosing Indication % IBW: Serum Creatinine - Last 168 Hours 11/18/23 06:56 Creatinine 0.93 Estimated CrCl and GFR - Last 168 Hours 11/18/23 06:56 Estim Creat Clear Calc 150.0 Estimated GFR > 60 Vancomycin Loading Dose: 2000 MG Current Vancomycin Dosing Regimen: 1500 MG Q12H Vancomycin Monitoring using AUC goal of 400 - 600 range with trough as surrogate marker: Date and Time for next Vancomycin Level to be drawn: RANDOM BEFORE 3RD DOSE 1500 MG Q12H Pharmacist Comments on Vancomycin Plan: OBESE, VERIFIED WEIGHT WITH FLAVIA EUBANKS. Vancomycin dosing will take advantage of [employer] as a clinical decision support tool that uses Bayesian modeling to calculate individual patient's pharmacokinetic parameters and forecast the patient's drug concentration time course with the target goal AUC 24 range of 400 - 600 mg/L/hr.
[2023-11-18] MEDS: Enoxaparin Sodium 40 MG/0.4 ML SYRINGE SUBCUT (11:48)
[2023-11-18] MEDS: Lactated Ringers 1,000 ML 100 ML IVCONT ×2 (11:48→21:35)
[2023-11-18] MEDS: oxyCODONE HCl Immed Release 5 MG TABLET PO ×2 (15:36→21:49)
[2023-11-18] MEDS: Atorvastatin Calcium 80 MG TABLET PO (19:46)
[2023-11-18] MEDS: Docusate Sodium 100 MG CAPSULE PO (19:46)
[2023-11-18] MEDS: vancomycin HCL 1,500 MG in 0.9 % Sodium Chloride 500 ML 333.33 MG IV (19:49)
[2023-11-18] MEDS: Acetaminophen 325 MG TABLET 650 MG PO (19:59)
[2023-11-18] MEDS: 0.9 % Sodium Chloride Flush 3 ML SYRINGE IVFLUSH (21:47)
[2023-11-19 03:44] VITALS: RESP 24
[2023-11-19 04:00] VITALS: BP 136/79; PULSE 79; RESP 16; TEMP 36.3; O2SAT 96
[2023-11-19] MEDS: oxyCODONE HCl Immed Release 5 MG TABLET PO (04:16)
[2023-11-19 06:14] LABS: Hematocrit 42.3 % (42.0-52.0); Mean Corpuscular HGB Conc 33.1 g/dl (31.0-36.0); Mean Corpuscular Hemoglobin 28.2 pg (27.0-33.0); Mean Corpuscular Volume 85.3 fL (80.0-98.0); Mean Platelet Volume 9.6 fL (9.4-12.4); Platelet Count 219 X10*3/uL (160-400); Red Blood Count 4.96 X10*6/uL (4.60-5.80); Red Cell Distribution Width 14.3 % (11.0-16.0); White Blood Count 14.6 X10*3/uL (4.8-10.8)
[2023-11-19 06:29] LABS: Vancomycin Random 9.2 mcg/mL (15-20)
[2023-11-19 06:37] LABS: Anion Gap 12 (12-20); Blood Urea Nitrogen 10 mg/dL (9-16); Carbon Dioxide 25 mmol/L (22-29); Chloride 102 mmol/L (96-108); Estimated Glomerular Filt Rate > 60; Glucose Random 110 mg/dL (60-115); Sodium 135 mmol/L (135-145)
--- NOTE | 2023-11-19 06:52 | HE.PHANOTE ---
RE: VANCO DOSING Random came back as 9.2. Dose is increased to 1750 mg q 12h with predicted xga=327 and trough=13.7. Next random is scheduled for 11/20/23 @0600.
[2023-11-19 07:46] VITALS: BP 123/67; PULSE 83; RESP 18; O2SAT 96
[2023-11-19] MEDS: Lactated Ringers 1,000 ML 100 ML IVCONT (08:14)
[2023-11-19] MEDS: vancomycin HCL 1,000 MG, vancomycin HCL 750 MG in 0.9 % Sodium Chloride 500 ML 267.5 MG IV (08:14)
[2023-11-19] MEDS: Docusate Sodium 100 MG CAPSULE PO ×2 (08:21→20:07)
--- NOTE | 2023-11-19 09:00 | HO.PM.IMPN ---
Subjective Subjective Date of Service: 11/19/23 Interval History: f/u on sepsis, tight celluliitis still having singifican pain in the area, especially with movement Physical Exam Vital Signs: Vital Signs: Last Vital Signs Temp 97.3 F 11/19/23 04:00 Pulse 83 11/19/23 07:46 Resp 18 11/19/23 07:46 BP 123/67 11/19/23 07:46 Pulse Ox 96 11/19/23 07:46 O2 Del Method CPAP 11/19/23 07:46 BMI result Body Mass Index 50.9 General: AO X 3, no acute distress Resp: CTA bilateral CVS: S1,S2,RRR GI: +BS, NT, no distention Skin: right upper inner thigh induration, warm and tenderness to palpation. no fluctuance, there doesn't appear to be any focal abscess Neuro: motor grossly intact Psych: appropriate affect Objective Data Active Medications Acetaminophen (Acetaminophen 325 Mg Tablet) 650 mg PO Q6H PRN PRN Reason: Pain, Mild (Pain Scale 1-3), fever or headache Last Admin: 11/18/23 19:59 Dose: 650 mg Documented By: ALIRIO Atorvastatin Calcium (Atorvastatin Calcium 80 Mg Tablet) 80 mg PO BEDTIME [facility] Last Admin: 11/18/23 19:46 Dose: 80 mg Documented By: ALIRIO Calcium Carbonate (Calcium Carbonate 750 Mg Tab.Chew) 750 mg PO Q4H PRN PRN Reason: Heartburn Docusate Sodium (Docusate Sodium 100 Mg Capsule) 100 mg PO BID [facility] Last Admin: 11/19/23 08:21 Dose: 100 mg Documented By: KESHIA Enoxaparin Sodium (Enoxaparin Sodium 40 Mg/0.4 Ml Syringe) 40 mg SUBCUT Q24H [facility] Last Admin: 11/18/23 11:48 Dose: 40 mg Documented By: MARTHA Lactated Ringer's (Lr) 1,000 mls @ 100 mls/hr IVCONT .Q10H [facility] Last Admin: 11/19/23 08:14 Dose: 100 mls/hr Documented By: KESHIA Vancomycin HCl 1,000 mg/Vancomycin HCl 750 mg/ Sodium Chloride 535 mls @ 267.5 mls/hr IV Q12H [facility] Last Admin: 11/19/23 08:14 Dose: 267.5 mls/hr Documented By: KESHIA Oxycodone HCl (Oxycodone Hcl Immed Release 5 Mg Tablet) 10 mg PO Q4H PRN PRN Reason: Pain, Moderate(Pain Scale 4-6) Pharmacy Consult (Consult Rx Vancomycin Dosing) 1 each MISCELLANE DAILY PRN PRN Reason: Consult order Polyethylene Glycol (Polyethylene Glycol 3350 17 Gm Powd.Pack) 17 gm PO DAILY PRN PRN Reason: Constipation Sodium Chloride (0.9 % Sodium Chloride Flush 3 Ml Syringe) 3 ml IVFLUSH QSHIFT [facility] Last Admin: 11/19/23 07:14 Dose: Not Given Documented By: KESHIA Non-Admin Reason: IV Running Labs 11/19/23 05:57 11/19/23 05:57 Labs: Laboratory Results - last 24 hr 11/18/23 11/18/23 11/19/23 06:56 09:31 05:57 MCV 85.3 MCH 28.2 MCHC 33.1 RDW 14.3 Plt Count 219 MPV 9.6 Absolute Nucleated RBC 0.000 Nucleated RBC % (auto) 0.0 Anion Gap 12 Estim Creat Clear Calc 180.0 Estimated GFR > 60 Random Glucose 110 Estimat Average Glucose 151 Hemoglobin A1c % 6.9 H Lactic Acid F/U @ 2Hr 1.2 Calcium 9.0 Random Vancomycin 9.2 L Assessment and Plan (1) Cellulitis: Status: Acute (2) Leukocytosis: Status: Acute Plan This is a 38-year-old morbidly obese male with history of hypertension, TARA, reported prediabetes who presents with 2 day history of redness warmth and pain in his right upper thigh found to have cellulitis Sepsis due to right thigh cellulitis--sepsis resolved. No drainable abscess on CT -Continue IV Vanco, add Ceftriaxone for grma neative, follow WBC, oxycodone for pain Prediabetes, hemoglobin A1C is 6.9, diet control Hypertension with hypotension, now resolved hold lisinopril, HCTZ and restart BP trends higher HLD continue statin elevated ALT chronically elevated likely due to NAFLD TARA CPAP at night and with naps Morbid obesity Likely due to excessive calories BMI 47.3 We loss encouraged - on wegovy for weight loss DVT ppx - Lovenox inpt: for IV Abx in an area that can progress to brandt's gangrene Quality Stroke Does the patient have a stroke diagnosis?: No VTE Prior VTE?: No VTE Risk Level:: Medical - moderate - high VTE Device Contraindication: N/A - Device Ordered VTE Drug Contraindication: N/A - Med Ordered
[2023-11-19] MEDS: oxyCODONE HCl Immed Release 5 MG TABLET 10 MG PO ×2 (10:35→16:51)
[2023-11-19] MEDS: cefTRIAXone sodium 1 GM in 0.9 % Sodium Chloride 50 ML IV (10:35)
[2023-11-19] MEDS: Enoxaparin Sodium 40 MG/0.4 ML SYRINGE SUBCUT (13:13)
[2023-11-19 16:00] VITALS: BP 127/66; PULSE 90; RESP 22; TEMP 37.3; O2SAT 95
[2023-11-19 19:48] VITALS: BP 135/82; PULSE 96; RESP 18; TEMP 36.7; O2SAT 94
[2023-11-19] MEDS: Acetaminophen 325 MG TABLET 650 MG PO (20:05)
[2023-11-19] MEDS: Atorvastatin Calcium 80 MG TABLET PO (20:07)
[2023-11-19] MEDS: Calcium Carbonate 750 MG TAB.CHEW PO (20:07)
[2023-11-19] MEDS: vancomycin HCL 1,000 MG, vancomycin HCL 750 MG in 0.9 % Sodium Chloride 500 ML 267 MG IV (20:09)
[2023-11-19] MEDS: HYDROmorphone HCl 1 MG/ML SYRINGE IVPUSH (20:46)
[2023-11-19 23:35] VITALS: PULSE 94; RESP 18; O2SAT 96
[2023-11-20] VITALS (10 sets, daily range): BP systolic 131–176; BP diastolic 72–98; PULSE 86–106; RESP 17–40; TEMP 36–37.6; O2SAT 92–97
[2023-11-20] MEDS: Acetaminophen 325 MG TABLET 650 MG PO ×2 (03:25→14:20)
[2023-11-20] MEDS: oxyCODONE HCl Immed Release 5 MG TABLET 10 MG PO ×5 (03:27→19:50)
--- NOTE | 2023-11-20 04:23 | PC.NURSE ---
Pt reporting 8/10 R posterior thigh pain most of the night regardless of pain medication, oxy 10 mg or acetaminophen 650 mg. Pt is reporting perspiration and a headache as well. One time does of IV Dilaudid 1 mg was given last night and seemed to help the patient sleep for some of the night. Recommend a new pain management plan.
[2023-11-20 06:10] LABS: Vancomycin Random 10.3 mcg/mL (15-20)
[2023-11-20 06:11] LABS: Creatinine Clr Calc Pharmacy 171.6; Estimated Glomerular Filt Rate > 60
--- NOTE | 2023-11-20 06:37 | HE.PHANOTE ---
RE: VANCO DOSING Random came back as 10.3. Due to concern of dose dumping (BMI=51.8), will continue with dose of 1750 mg q12h (predicted PLK=826, trough=11.8), next random is scheduled for 11/21/23@0600.
[2023-11-20] MEDS: Docusate Sodium 100 MG CAPSULE PO ×2 (07:11→19:50)
[2023-11-20] MEDS: vancomycin HCL 1,000 MG, vancomycin HCL 750 MG in 0.9 % Sodium Chloride 500 ML 267.5 MG IV ×2 (07:11→20:43)
--- NOTE | 2023-11-20 08:35 | MHC.CM.PN ---
PT REPORTS HE LIVES WITH HIS MOTHER AND IS INDEPENDENT WITH CARE HE HAS NO SERVICES AND A CPAP FOR DME HE DECLINES TO COMPLETE A HCP PCP: ROSE RO DCP: HOME VIA SELF TRANSPORT
[2023-11-20] MEDS: cefTRIAXone sodium 1 GM in 0.9 % Sodium Chloride 50 ML IV (09:46)
[2023-11-20] MEDS: Enoxaparin Sodium 40 MG/0.4 ML SYRINGE SUBCUT (10:54)
--- NOTE | 2023-11-20 11:30 | HO.PM.IMPN ---
Subjective Subjective Date of Service: 11/20/23 Interval History: f/u on sepsis, tight celluliitis still having singifican pain in the area, and appear more swollen Physical Exam Vital Signs: Vital Signs: Last Vital Signs Temp 97.7 F 11/20/23 07:57 Pulse 96 11/20/23 07:57 Resp 18 11/20/23 07:57 BP 133/77 11/20/23 07:57 Pulse Ox 93 11/20/23 07:57 O2 Del Method Room Air 11/20/23 07:57 BMI result Body Mass Index 50.9 Const: Other: General: AO X 3, no acute distress Resp: CTA bilateral CVS: S1,S2,RRR GI: +BS, NT, no distention Skin: Tenderness and unduration in the right groin Neuro: motor grossly intact Psych: appropriate affect Objective Data Active Medications Acetaminophen (Acetaminophen 325 Mg Tablet) 650 mg PO Q6H PRN PRN Reason: Pain, Mild (Pain Scale 1-3), fever or headache Last Admin: 11/20/23 03:25 Dose: 650 mg Documented By: ALIRIO Atorvastatin Calcium (Atorvastatin Calcium 80 Mg Tablet) 80 mg PO BEDTIME [facility] Last Admin: 11/19/23 20:07 Dose: 80 mg Documented By: ALIRIO Calcium Carbonate (Calcium Carbonate 750 Mg Tab.Chew) 750 mg PO Q4H PRN PRN Reason: Heartburn Last Admin: 11/19/23 20:07 Dose: 750 mg Documented By: ALIRIO Docusate Sodium (Docusate Sodium 100 Mg Capsule) 100 mg PO BID [facility] Last Admin: 11/20/23 07:11 Dose: 100 mg Documented By: RICO Enoxaparin Sodium (Enoxaparin Sodium 40 Mg/0.4 Ml Syringe) 40 mg SUBCUT Q24H [facility] Last Admin: 11/20/23 10:54 Dose: 40 mg Documented By: RICO Vancomycin HCl 1,000 mg/Vancomycin HCl 750 mg/ Sodium Chloride 535 mls @ 267.5 mls/hr IV Q12H [facility] Last Infusion: 11/20/23 09:42 Dose: Infused Documented By: RICO Ceftriaxone Sodium 1 gm/ (Sodium Chloride) 50 mls @ 100 mls/hr IV Q24H [facility] Last Admin: 11/20/23 09:46 Dose: 100 mls/hr Documented By: RICO Oxycodone HCl (Oxycodone Hcl Immed Release 5 Mg Tablet) 10 mg PO Q4H PRN PRN Reason: Pain, Moderate(Pain Scale 4-6) Last Admin: 11/20/23 10:54 Dose: 10 mg Documented By: RICO Pharmacy Consult (Consult Rx Vancomycin Dosing) 1 each MISCELLANE DAILY PRN PRN Reason: Consult order Polyethylene Glycol (Polyethylene Glycol 3350 17 Gm Powd.Pack) 17 gm PO DAILY PRN PRN Reason: Constipation Sodium Chloride (0.9 % Sodium Chloride Flush 3 Ml Syringe) 3 ml IVFLUSH QSHIFT [facility] Last Admin: 11/20/23 07:12 Dose: Not Given Documented By: RICO Non-Admin Reason: IV Running Labs 11/19/23 05:57 11/20/23 05:46 Labs: Laboratory Results - last 24 hr 11/20/23 05:46 Hold Purple Top SEE NOTE Estim Creat Clear Calc 171.6 Estimated GFR > 60 Random Vancomycin 10.3 L Microbiology Microbiology Results: Microbiology 11/18/23 06:56 Blood Culture - Preliminary Blood - Arterial No growth after 48 hours. 11/18/23 06:56 Blood Culture - Preliminary Blood - Arterial No growth after 48 hours. Assessment and Plan (1) Cellulitis: Status: Acute (2) Leukocytosis: Status: Acute Plan This is a 38-year-old morbidly obese male with history of hypertension, TARA, reported prediabetes who presents with 2 day history of redness warmth and pain in his right upper thigh found to have cellulitis Sepsis due to right thigh/groin cellulitis--sepsis resolved. No drainable abscess on CT. bu area appear undrated and tendern, will have surgery assess -Continue IV Vanco, Ceftriaxone for grma neative, follow WBC, oxycodone for pain. ID consult Prediabetes, hemoglobin A1C is 6.9, diet control Hypertension with hypotension, now resolved hold lisinopril, HCTZ (). restart Lisinopril at 10 HLD continue statin elevated ALT chronically elevated likely due to NAFLD TARA CPAP at night and with naps Morbid obesity Likely due to excessive calories BMI 47.3 We loss encouraged - on wegovy for weight loss DVT ppx - Lovenox inpt: for IV Abx in an area that can progress to brandt's gangrene Quality Stroke Does the patient have a stroke diagnosis?: No VTE Prior VTE?: No VTE Risk Level:: Medical - moderate - high VTE Device Contraindication: N/A - Device Ordered VTE Drug Contraindication: N/A - Med Ordered
[2023-11-20] MEDS: Lidocaine HCl 1 % 20 ML VIAL INFILTRATI (13:09)
[2023-11-20] MEDS: Morphine Sulfate 4 MG/ML CARTRIDGE IVPUSH (13:09)
--- NOTE | 2023-11-20 13:25 | P.CONGS_ITS ---
History of Present Illness Consult details Consult date: 11/20/23 <Michelle Cantor PA-C Last Filed: 11/20/23 13:47> Requesting physician: Jasiel Johnson <MK Armstrong Last Filed: 11/20/23 13:47> Narrative: This is a 38-year-old male with PMH of hypertension, prediabetic, morbid obesity, TARA on CPAP who presented to the ED on Monday with complaints of right upper thigh swelling and pain. This started a few days prior and started pimple-like. It worsened and became red and very painful prompting evaluation. CT scan of the pelvis which subcutaneous edema and skin thickening of the medial aspect of the right upper thigh without a fluid collection or gas. He had an elevated lactic acid and leukocytosis. He was admitted to the hospitalist service for further treatment of the right groin cellulitis, sepsis and started on IV vanco and rocephin. He had no improvement in the cellulitis and the area seemed more edematous today, therefore general surgery consult was obtained for further evaluation of the area. He reports continued severe pain. <Michelle Cantor PA-C Last Filed: 11/20/23 13:47> Review of Systems 2 Constitutional: Constitutional: Denies chills and Denies fever(s) < MK Armstrong Filed: 11/20/23 13:47> ENT: Denies dizziness <MK Armstrong Filed: 11/20/23 13:47> Cardiovascular: Cardiovascular: Denies chest pain and Denies dyspnea < MK Armstrong Filed: 11/20/23 13:47> Respiratory: Respiratory: Denies dyspnea <MK Armstrong Last Filed: 11/20/23 13:47> Gastrointestinal: Gastrointestinal: Denies diarrhea, Denies nausea and Denies vomiting <MK Armstrong Filed: 11/20/23 13:47> Integumentary/Breasts: Skin/Breast: Reports as per HPI <MK Armstrong Filed: 11/20/23 13:47> Neurologic: Denies dizziness <Michelle Cantor PA-C - Last Filed: 11/20/23 13:47> [facility] Past Medical History Medical History: Medical History Nocturnal hypoxemia due to obesity TARA (obstructive sleep apnea) Morbid obesity Sleep apnea Borderline diabetes Hypertension Pelvic fracture <Michelle Cantor PA-C - Last Filed: 11/20/23 13:47> Family History Family History: Family History Father History of liver cancer Maternal Uncle History of cancer of unknown primary site <Michelle Cantor PA-C - Last Filed: 11/20/23 13:47> Surgical History Surgical History: Surgical History History of incisional hernia repair (03/08/19) History of removal of cyst History of cystoscopy History of pelvic surgery (2003) History of hernia repair (08/08/13) <Michelle Cantor PA-C - Last Filed: 11/20/23 13:47> Social History Social History: Social History Household Members: Family Housing: Apartment Do you presently have visiting nurse or other home services: No Alcohol intake: never Patient Tobacco Use Status: Never used Tobacco Smoked in Last 30 Days: No Patient Interested in Nicotine Replacement: No Patient Given Instructions on How to Stop Smoking: No Second Hand Smoke Exposure: No Use of substances other than those prescribed or required for medical reasons: No Substance Use Type: Marijuana Currently Displaying Signs/Symptoms of Drug Intoxication Withdrawal: No Any prior treatment program specific to substance use: No Have you been hit, kicked, punched, or otherwise hurt by someone within the past year? If so, by whom?: No Do you feel safe in your current relationship?: Yes Is there a partner from a previous relationship who is making you feel unsafe now?: No Are you made to feel afraid or neglected: No Advance Directives: No Advance Directives Information Provided: No (Declined) Advance Directives on File: No Do you have a plan to hurt others: No Plan Recently lost weight without trying: No Nutrition Risks: No Nutritional Risk Poor oral hygiene: No service: No <Michelle Cantor PA-C - Last Filed: 11/20/23 13:47> Meds Allergies/Adverse reactions: Allergies Allergy/AdvReac Type Severity Reaction Status Date / Time lactose [LACTOSE] Allergy Intermediate GI UPSET Verified 11/18/23 06:33 <Michelle Cantor PA-C - Last Filed: 11/20/23 13:47> Active Medications: Current Medications Acetaminophen (Acetaminophen 325 Mg Tablet) 650 mg PO Q6H PRN PRN Reason: Pain, Mild (Pain Scale 1-3), fever or headache Last Admin: 11/20/23 03:25 Dose: 650 mg Atorvastatin Calcium (Atorvastatin Calcium 80 Mg Tablet) 80 mg PO BEDTIME [facility] Last Admin: 11/19/23 20:07 Dose: 80 mg Calcium Carbonate (Calcium Carbonate 750 Mg Tab.Chew) 750 mg PO Q4H PRN PRN Reason: Heartburn Last Admin: 11/19/23 20:07 Dose: 750 mg Docusate Sodium (Docusate Sodium 100 Mg Capsule) 100 mg PO BID [facility] Last Admin: 11/20/23 07:11 Dose: 100 mg Enoxaparin Sodium (Enoxaparin Sodium 40 Mg/0.4 Ml Syringe) 40 mg SUBCUT Q24H [facility] Last Admin: 11/20/23 10:54 Dose: 40 mg Vancomycin HCl 1,000 mg/Vancomycin HCl 750 mg/ Sodium Chloride 535 mls @ 267.5 mls/hr IV Q12H [facility] Last Infusion: 11/20/23 09:42 Dose: Infused Ceftriaxone Sodium 1 gm/ (Sodium Chloride) 50 mls @ 100 mls/hr IV Q24H [facility] Last Infusion: 11/20/23 12:21 Dose: Infused Lisinopril (Lisinopril 10 Mg Tablet) 10 mg PO DAILY [facility]; Protocol Oxycodone HCl (Oxycodone Hcl Immed Release 5 Mg Tablet) 10 mg PO Q4H PRN PRN Reason: Pain, Moderate(Pain Scale 4-6) Last Admin: 11/20/23 10:54 Dose: 10 mg Pharmacy Consult (Consult Rx Vancomycin Dosing) 1 each MISCELLANE DAILY PRN PRN Reason: Consult order Polyethylene Glycol (Polyethylene Glycol 3350 17 Gm Powd.Pack) 17 gm PO DAILY PRN PRN Reason: Constipation Sodium Chloride (0.9 % Sodium Chloride Flush 3 Ml Syringe) 3 ml IVFLUSH QSHIFT [facility] Last Admin: 11/20/23 07:12 Dose: Not Given <MK Armstrong Last Filed: 11/20/23 13:47> Home medications: Home Medications ?Medication ?Instructions ?Recorded ?Confirmed ?Last Taken ?Type lisinopril 20 1 tab PO DAILY 10/04/21 11/18/23 11/18/23 History mg-hydrochlorothiazide 25 mg tablet acetaminophen 500 mg tablet 1,000 mg PO Q6H PRN pain or fever 11/18/23 11/18/23 Unknown History (Tylenol Extra Strength) ibuprofen 200 mg tablet 400 mg PO Q8H PRN Pain 11/18/23 11/18/23 11/17/23 History rosuvastatin 20 mg tablet 20 mg PO BEDTIME 11/18/23 11/18/23 11/17/23 History semaglutide (weight loss) 0.25 0.25 mg subcut TU@0900 11/18/23 11/18/23 Unknown History mg/0.5 mL subcutaneous pen injector ([place]) <MK Armstrong Last Filed: 11/20/23 13:47> Physical Exam 2 Vital Signs: Vital Signs: Last Vital Signs Temp 97.7 F 11/20/23 07:57 Pulse 96 11/20/23 07:57 Resp 18 11/20/23 07:57 BP 133/77 11/20/23 07:57 Pulse Ox 93 11/20/23 07:57 O2 Del Method Room Air 11/20/23 07:57 BMI result Body Mass Index 50.9 <MK Armstrong Last Filed: 11/20/23 13:47> Const: Other: uncomfortable appearing <MK Armstrong Last Filed: 11/20/23 13:47> General: no acute distress and alert <MK Armstrong Last Filed: 11/20/23 13:47> Resp: Other: CPAP in place <MK Armstrong Last Filed: 11/20/23 13:47> Effort & Inspection: normal respiratory effort <Michelle PfeifferMK rojas Hiren Last Filed: 11/20/23 13:47> Skin: Other: right groin with significant erythema, skin thickening and induration extending posteriorly to perineum, area very tender; area with overlying bulla and some fluctuance underlying ; right upper leg/groin has chronic scarring and skin thickening <AKSHAT ArmstrongHirenSonja Hiren Last Filed: 11/20/23 13:47> Results Labs Result diagrams: 11/19/23 05:57 11/20/23 05:46 <Michelle PfeifferAKSHAT rojasYesika Maradiaga Last Filed: 11/20/23 13:47> Labs: Abnormal lab results 11/20/23 Range/Units 05:46 Random Vancomycin 10.3 L (15-20) mcg/mL BMP 11/20/23 05:46 Creatinine 0.85 All other labs normal. <AKSHAT ArmstrongHirenSonja Hiren Last Filed: 11/20/23 13:47> Imaging CT scan - pelvis: report reviewed and image reviewed <Michelle JEANNIE CantorSonja Maradiaga Last Filed: 11/20/23 13:47> Assessment and Plan (1) Abscess of right groin: Status: Acute <Michelle AKSHAT CantorYesika Dwyer Filed: 11/20/23 13:47> 38-year-old male with multiple medical problems including morbid obesity, obstructive sleep apnea, prediabetic, on Wegovy, admitted for cellulitis the right groin This has been worsening the past [address] scan from 2 days ago reviewed -inflammatory process seen on the fat of the right groin However, he has not improved and describes worsening Currently large cellulitic process along with area of extensive induration seen in the right groi Incision made under local anesthesia -no pus but note of soupy fluid with the cavity highly suggestive of a necrotizing process It is best to proceed with doing debridement in the OR under anesthesia in view of this suspicion of necrotizing soft tissue infection I explained to him the technique of this procedure Reviewed the risks including but not limited to bleeding, further infections, open wound, current risk of anesthesia He understands this review of his medical problems, he is perioperative risks are much higher I have discussed the case with the anesthesiologist as the patient is on Wegovy The patient was given consent as he describes worsening of the pain and swelling The patient was seen and examined independently <Silverio Bob MD - Last Filed: 11/20/23 14:12> 38-year-old male with PMH of hypertension, prediabetic, morbid obesity, TARA on CPAP admitted with right groin cellulitis. He has had no improvement in his symptoms and had worsening appearance of the cellulitis and now has significant erythema, edema and induration of the right groin with significant tenderness. I&D was therefore performed over an area of fluctuance at bedside (see procedure note below) with evacuation of a very soupy purulent appearing drainage, concerning for necrotizing process. It was therefore discussed that we would need to proceed with larger I&D, possible debridement in the OR under anesthesia. It was discussed if it is necrotizing, this may result in a large wound depending how extensive the process is. He understands and is in agreement. He was added onto the OR schedule emergently for today. Last oral intake was at 1130. Anesthesia aware. Patient was placed in right frog leg position. The site of procedure was confirmed by the patient. After assuring informed consent, the skin was prepped with Betadine. He was premedicated with Morphine IV. 10cc 1% lidocaine was then infiltrated over the central portion of the fluctuance and surrounding tissue. A large cruciate incision was made with an 11 blade in the same location. This was deepened into the subcutaneous tissue. A pocket was identified and a large amount of soupy, purulent fluid was evacuated. A culture was obtained. The area was then probed with a snap and digitally to ensure any loculations were broken up. During this, the cavity was found to be extensive. There was concern for necrotizing process. Pressure was held with sterile gauze until hemostasis ensured. Dry dressing with fluffs and abd dressing were placed. Further I&D, possible debridement will take place in the OR. The patient tolerated the procedure very well. <Michelle Cantor PA-C - Last Filed: 11/20/23 13:47> Procedures Date of Service Date of Service: 11/20/23 <Michelle Cantor PA-C - Last Filed: 11/20/23 13:47> 11/20/23 <Silverio Bob MD - Last Filed: 11/20/23 14:12>
--- NOTE | 2023-11-20 13:54 | P.CONAN_ITS ---
FORMERLY [facility], 1928–1983 Active Problems Active Problems: All Active Problems Abscess of right groin (Acute) Elevated lactic acid level (Acute) Leukocytosis (Acute) Cellulitis (Acute) Nocturnal hypoxemia due to obesity (Acute) TARA (obstructive sleep apnea) (Acute) Morbid obesity (Acute) Past Medical History Medical History Nocturnal hypoxemia due to obesity TARA (obstructive sleep apnea) Morbid obesity Sleep apnea Borderline diabetes Hypertension Pelvic fracture Family History Family History Father History of liver cancer Maternal Uncle History of cancer of unknown primary site Surgical History Surgical History History of incisional hernia repair (03/08/19) History of removal of cyst History of cystoscopy History of pelvic surgery (2003) History of hernia repair (08/08/13) History of Problems with Anesthesia: No Social History Social History Household Members: Family Housing: Apartment Do you presently have visiting nurse or other home services: No Alcohol intake: never Patient Tobacco Use Status: Never used Tobacco Second Hand Smoke Exposure: No Substance Use Type: Marijuana service: No Meds Allergies Allergy/AdvReac Type Severity Reaction Status Date / Time lactose [LACTOSE] Allergy Intermediate GI UPSET Verified 11/18/23 06:33 Active Medications: Current Medications Acetaminophen (Acetaminophen 325 Mg Tablet) 650 mg PO Q6H PRN PRN Reason: Pain, Mild (Pain Scale 1-3), fever or headache Last Admin: 11/20/23 03:25 Dose: 650 mg Atorvastatin Calcium (Atorvastatin Calcium 80 Mg Tablet) 80 mg PO BEDTIME [facility] Last Admin: 11/19/23 20:07 Dose: 80 mg Calcium Carbonate (Calcium Carbonate 750 Mg Tab.Chew) 750 mg PO Q4H PRN PRN Reason: Heartburn Last Admin: 11/19/23 20:07 Dose: 750 mg Docusate Sodium (Docusate Sodium 100 Mg Capsule) 100 mg PO BID [facility] Last Admin: 11/20/23 07:11 Dose: 100 mg Enoxaparin Sodium (Enoxaparin Sodium 40 Mg/0.4 Ml Syringe) 40 mg SUBCUT Q24H [facility] Last Admin: 11/20/23 10:54 Dose: 40 mg Vancomycin HCl 1,000 mg/Vancomycin HCl 750 mg/ Sodium Chloride 535 mls @ 267.5 mls/hr IV Q12H [facility] Last Infusion: 11/20/23 09:42 Dose: Infused Ceftriaxone Sodium 1 gm/ (Sodium Chloride) 50 mls @ 100 mls/hr IV Q24H [facility] Last Infusion: 11/20/23 12:21 Dose: Infused Lisinopril (Lisinopril 10 Mg Tablet) 10 mg PO DAILY [facility]; Protocol Oxycodone HCl (Oxycodone Hcl Immed Release 5 Mg Tablet) 10 mg PO Q4H PRN PRN Reason: Pain, Moderate(Pain Scale 4-6) Last Admin: 11/20/23 10:54 Dose: 10 mg Pharmacy Consult (Consult Rx Vancomycin Dosing) 1 each MISCELLANE DAILY PRN PRN Reason: Consult order Polyethylene Glycol (Polyethylene Glycol 3350 17 Gm Powd.Pack) 17 gm PO DAILY PRN PRN Reason: Constipation Sodium Chloride (0.9 % Sodium Chloride Flush 3 Ml Syringe) [facility] Last Admin: 11/20/23 07:12 Dose: Not Given Home Medications ?Medication ?Instructions ?Recorded ?Confirmed ?Last Taken ?Type lisinopril 20 1 tab PO DAILY 10/04/21 11/18/23 11/18/23 History mg-hydrochlorothiazide 25 mg tablet acetaminophen 500 mg tablet 1,000 mg PO Q6H PRN pain or fever 11/18/23 11/18/23 Unknown History (Tylenol Extra Strength) ibuprofen 200 mg tablet 400 mg PO Q8H PRN Pain 11/18/23 11/18/23 11/17/23 His tory rosuvastatin 20 mg tablet 20 mg PO BEDTIME 11/18/23 11/18/23 11/17/23 History semaglutide (weight loss) 0.25 0.25 mg subcut TU@0900 11/18/23 11/18/23 Unknown History mg/0.5 mL subcutaneous pen injector ([place]) Exam Height,Weight and Vital Signs: Height 5 ft 9 in Weight 156.5 kg Last Vital Signs Temp 97.7 F 11/20/23 07:57 Pulse 96 11/20/23 07:57 Resp 18 11/20/23 07:57 BP 133/77 11/20/23 07:57 Pulse Ox 93 07/01/24 07:57 O2 Del Method Room Air 11/20/23 07:57 Pertinent Lab Results Pertinent Lab Results: Laboratory Tests 11/18/23 11/18/23 11/19/23 06:56 09:31 05:57 WBC 14.6 H 14.6 H RBC 5.19 4.96 Hgb 14.8 14.0 Hct 44.2 42.3 MCV 85.2 85.3 MCH 28.5 28.2 MCHC 33.5 33.1 RDW 14.2 14.3 Plt Count 242 219 MPV 9.6 9.6 Immature Gran % (Auto) 0.5 H Neut % (Auto) 75.5 H Lymph % (Auto) 15.9 L [place] % (Auto) 6.4 Eos % (Auto) 1.2 Baso % (Auto) 0.5 Lymph # (Auto) 2.3 [place] # (Auto) 0.9 Eos # (Auto) 0.2 Baso # (Auto) 0.1 Abs Immat Gran (auto) 0.07 H Absolute Neuts (auto) 11.0 H Absolute Nucleated RBC 0.000 0.000 Nucleated RBC % (auto) 0.0 0.0 ESR 11 Hold Purple Top SEE NOTE PT 12.4 INR 1.0 Sodium 134 L 135 Potassium 3.9 4.0 Chloride 104 102 Carbon Dioxide 18 L 25 Anion Gap 16 12 BUN 14 10 Creatinine 0.93 0.81 Estim Creat Clear Calc 150.0 180.0 Estimated GFR > 60 > 60 Random Glucose 192 H 110 Estimat Average Glucose 151 Hemoglobin A1c % 6.9 H Lactic Acid 3.0 H* Lactic Acid F/U @ 2Hr 1.2 Calcium 9.2 9.0 Total Bilirubin 0.6 Direct Bilirubin 0.2 AST 27 ALT 51 H Alkaline Phosphatase 87 Total Creatine Kinase 160 C-Reactive Protein 3.45 H Total Protein 7.3 Albumin 4.0 Random Vancomycin 9.2 L 11/20/23 05:46 WBC RBC Hgb Hct MCV MCH MCHC RDW Plt Count MPV Immature Gran % (Auto) Neut % (Auto) Lymph % (Auto) [place] % (Auto) Eos % (Auto) Baso % (Auto) Lymph # (Auto) [place] # (Auto) Eos # (Auto) Baso # (Auto) Abs Immat Gran (auto) Absolute Neuts (auto) Absolute Nucleated RBC Nucleated RBC % (auto) ESR Hold Purple Top SEE NOTE PT INR Sodium Potassium Chloride Carbon Dioxide Anion Gap BUN Creatinine 0.85 Estim Creat Clear Calc 171.6 Estimated GFR > 60 Random Glucose Estimat Average Glucose Hemoglobin A1c % Lactic Acid Lactic Acid F/U @ 2Hr Calcium Total Bilirubin Direct Bilirubin AST ALT Alkaline Phosphatase Total Creatine Kinase C-Reactive Protein Total Protein Albumin Random Vancomycin 10.3 L Airway Mallampati Class: Patient Non-Cooperative TM Dist: >3cm Neck ROM: Full Loose/Missing/Broken Teeth: No Heart: RRR Lungs: CTA Assessment and Plan Assessment Anesthesia Assessment: Anesthesia Plan Discussed and Chart Reviewed Final Anesthetic Review History of Problems with Anesthesia: No NPO: Yes ASA Class: III and Emergency Final Preanesthetic Review: Meds/Allgs Chart Reviewed, Consent Obtained/Reviewed and Anes Risks/Benef Reviewed Patient Risk: Intermediate Procedure Risk: Low Anesthetic Plan Anesthetic Plan: GA Disposition: Standard PACU
--- NOTE | 2023-11-20 15:25 | MHC.CM.PN ---
EMR REVIEWED, PT HAD BEDSIDE I AND D THIGH ABSCESS, MAY NEED MORE EXTENSIVE DEBRIDEMENT IN THE OR. CM WILL CONTINUE TO FOLLOW FOR ANY CHANGE TO THE DC PLAN/NEEDS
--- NOTE | 2023-11-20 15:36 | P.OP_ITS ---
Operative Note Operative Note Date of Service: 11/20/23 Narrative: Preop diagnosis: Worsening right groin cellulitis, likely necrotizing soft- tissue infection Postop diagnosis: Necrotizing soft incision infection right groin Procedure: Excisional debridement, skin and thick subcutaneous fat, right groin for soft tissue necrotizing infection Surgeon: Silverio Bob MD The patient is a 38-year-old male with morbid obesity, obstructive sleep apnea, nocturnal hypoxemia due to obesity, admitted because of cellulitis of the right groin. This continued to get worse on IV antibiotics. His initial CT scan 2 days ago did not reveal any fluid collection but he did have a lot of infl ammatory changes in the subcutaneous fat. Examination today on consultation showed that he had severe induration, cellulitis tenderness of the right groin area to the proximal thigh. He says that this has been worsening was extremely tender. I&D of this under local anesthesia at bedside showed is soupy fluid subcutaneous fat. There was concern with a necrotizing process of the soft tissue in the area because of the clinical picture. I explained to him it would be best to proceed with excisional debridement and exploration in the or under anesthesia. He understood the technique of the procedure as well as the risks, benefits, and alternatives. He was brought to the operating room and placed in frog-leg position supine under general anesthesia via endotracheal tube. The area of the right groin with a severe extensive induration was prepped and draped. A surgical time-out was done. The patient was receiving scheduled IV antibiotics. I made a generous cruciate incision on the skin overlying this induration with a blade 10. I entered the deep subcutaneous fat and with blunt dissection I was able to open up a cavity with poorly defined planes. There was note of soupy material from the area. Cultures were done. There seemed to be thickened subcutaneous fat necrosis so I extended incision. There were patches of necrotizing soft tissue infection in the deep subcutaneous space so I had to do debridement of this area to viable looking tissue. The open wound measured about 12 cm x 5 cm and involved the deep subcutaneous tissue I cauterized oozing areas. Once it appeared that there were no other inflammatory changes and that there was viable tissue all around, I copiously irrigated. Once hemostasis was confirmed, I packed the area with moist normal saline soaked Kerlix rolls Dressings were applied. The procedure was completed The patient tolerated procedure well. There were no immediate complications. Estimated blood loss about 100 cc The patient was extubated without difficulty and transferred to the recovery room with stable vital signs.
--- NOTE | 2023-11-20 15:58 | P.CNID_ITS ---
History of Present Illness Data of Consult Service Date: 11/20/23 Requesting physician: Jasiel Sexton Primary Care Provider: Divya Campoverde NP HPI Reason for consult: right groin abscess,prediabetes He presents with redness and swelling groin and popped blister. He had symptoms for about a day and no injury He has had cellulitis in past. Review of Systems 2 Review of Systems: Yes all other systems are reviewed and are negative [facility] Past Medical History Medical History Nocturnal hypoxemia due to obesity TARA (obstructive sleep apnea) Morbid obesity Sleep apnea Borderline diabetes Hypertension Pelvic fracture Family History Family History Father History of liver cancer Maternal Uncle History of cancer of unknown primary site Family history: reviewed and not pertinent Surgical History Surgical History History of incisional hernia repair (03/08/19) History of removal of cyst History of cystoscopy History of pelvic surgery (2003) History of hernia repair (08/08/13) Social History Social History Household Members: Family Housing: Apartment Do you presently have visiting nurse or other home services: No Alcohol intake: never Patient Tobacco Use Status: Never used Tobacco Smoked in Last 30 Days: No Patient Interested in Nicotine Replacement: No Patient Given Instructions on How to Stop Smoking: No Second Hand Smoke Exposure: No Use of substances other than those prescribed or required for medical reasons: No Substance Use Type: Marijuana Currently Displaying Signs/Symptoms of Drug Intoxication Withdrawal: No Any prior treatment program specific to substance use: No Have you been hit, kicked, punched, or otherwise hurt by someone within the past year? If so, by whom?: No Do you feel safe in your current relationship?: Yes Is there a partner from a previous relationship who is making you feel unsafe now?: No Are you made to feel afraid or neglected: No Are you DNR?: No Advance Directives: No Advance Directives Information Provided: No (Declined) Advance Directives on File: No Do you have a plan to hurt others: No Plan Recently lost weight without trying: No Nutrition Risks: No Nutritional Risk Poor oral hygiene: No service: No Meds Allergies Allergy/AdvReac Type Severity Reaction Status Date / Time lactose [LACTOSE] Allergy Intermediate GI UPSET Verified 11/18/23 06:33 Active Medications: Current Medications Acetaminophen (Acetaminophen 325 Mg Tablet) 650 mg PO Q6H PRN PRN Reason: Pain, Mild (Pain Scale 1-3), fever or headache Last Admin: 11/20/23 14:20 Dose: 650 mg Atorvastatin Calcium (Atorvastatin Calcium 80 Mg Tablet) 80 mg PO BEDTIME [facility] Last Admin: 11/19/23 20:07 Dose: 80 mg Calcium Carbonate (Calcium Carbonate 750 Mg Tab.Chew) 750 mg PO Q4H PRN PRN Reason: Heartburn Last Admin: 11/19/23 20:07 Dose: 750 mg Docusate Sodium (Docusate Sodium 100 Mg Capsule) 100 mg PO BID [facility] Last Admin: 11/20/23 07:11 Dose: 100 mg Enoxaparin Sodium (Enoxaparin Sodium 40 Mg/0.4 Ml Syringe) 40 mg SUBCUT Q24H [facility] Last Admin: 11/20/23 10:54 Dose: 40 mg Vancomycin HCl 1,000 mg/Vancomycin HCl 750 mg/ Sodium Chloride 535 mls @ 267.5 mls/hr IV Q12H [facility] Last Infusion: 11/20/23 09:42 Dose: Infused Ceftriaxone Sodium 1 gm/ (Sodium Chloride) 50 mls @ 100 mls/hr IV Q24H [facility] Last Infusion: 11/20/23 12:21 Dose: Infused Acetaminophen (Ofirmev) 1,000 mg in 100 mls @ 400 mls/hr IV ONCE PRN PRN Reason: Pain, Mild (Pain Scale 1-3) Stop: 11/20/23 21:49 Lisinopril (Lisinopril 10 Mg Tablet) 10 mg PO DAILY [facility]; Protocol Last Admin: 11/20/23 14:18 Dose: Not Given Oxycodone HCl (Oxycodone Hcl Immed Release 5 Mg Tablet) 10 mg PO Q4H PRN PRN Reason: Pain, Moderate(Pain Scale 4-6) Last Admin: 11/20/23 14:20 Dose: 10 mg Pharmacy Consult (Consult Rx Vancomycin Dosing) 1 each MISCELLANE DAILY PRN PRN Reason: Consult order Polyethylene Glycol (Polyethylene Glycol 3350 17 Gm Powd.Pack) 17 gm PO DAILY PRN PRN Reason: Constipation Sodium Chloride (0.9 % Sodium Chloride Flush 3 Ml Syringe) 3 ml IVFLUSH QSHIFT [facility] Last Admin: 11/20/23 07:12 Dose: Not Given Home Medications ?Medication ?Instructions ?Recorded ?Confirmed ?Last Taken ?Type lisinopril 20 1 tab PO DAILY 10/04/21 11/18/23 11/18/23 History mg-hydrochlorothiazide 25 mg tablet acetaminophen 500 mg tablet 1,000 mg PO Q6H PRN pain or fever 11/18/23 11/18/23 Unknown History (Tylenol Extra Strength) ibuprofen 200 mg tablet 400 mg PO Q8H PRN Pain 11/18/23 11/18/23 11/17/23 History rosuvastatin 20 mg tablet 20 mg PO BEDTIME 11/18/23 11/18/23 11/17/23 History semaglutide (weight loss) 0.25 0.25 mg subcut TU@0900 11/18/23 11/18/23 Unknown History mg/0.5 mL subcutaneous pen injector ([place]) Physical Exam 2 Vital Signs: Vital Signs: Last Vital Signs Temp 99.6 F 11/20/23 14:42 Pulse 102 H 11/20/23 14:42 Resp 17 11/20/23 14:42 BP 139/82 11/20/23 14:42 Pulse Ox 93 11/20/23 14:42 O2 Del Method Room Air 11/20/23 14:42 BMI result Body Mass Index 50.9 Extrem: Other: right groin abscess and redness,no scrotal involvement but does go back toward posterior region Results Labs 11/19/23 05:57 11/20/23 05:46 Labs: BMP 11/20/23 05:46 Creatinine 0.85 Microbiology Microbiology Results: Microbiology 11/18/23 06:56 Blood - Arterial Blood Culture - Preliminary No growth after 48 hours. 11/18/23 06:56 Blood - Arterial Blood Culture - Preliminary No growth after 48 hours. Assessment and Plan (1) Abscess of right groin: Status: Acute (2) Elevated lactic acid level: Status: Acute Plan There is concern over deep infection He has elevated lactic acid Would switch to IV Vancomycin and piperacillin/tazobactam and add Clindamycin 900 mg IV for now pending further surgery eval if any.
[2023-11-20] MEDS: Clindamycin Phosphate/D5W 900 MG/50 ML PIGGYBACK 50 MG IV (16:48)
[2023-11-20] MEDS: 0.9 % Sodium Chloride Flush 3 ML SYRINGE IVFLUSH ×2 (16:49→19:56)
--- NOTE | 2023-11-20 16:54 | PM.EVENT ---
Event Note Date of Service: 11/21/23 Event Note: Patient seen postop Underwent excisional debridement of the right groin for necrotizing soft tissue infection Dressings dry He looks well Stable vital signs Continue IV antibiotics We will need good wound care Plan to change packing tomorrow Brother updated Time Spent With Patient Time: Total time managing care of this patient today ____ minutes.
[2023-11-20] MEDS: Piperacillin Sodium/Tazobactam 4.5 GM in 0.9 % Sodium Chloride 100 ML IV (17:47)
[2023-11-20] MEDS: Atorvastatin Calcium 80 MG TABLET PO (19:50)
[2023-11-20] MEDS: Calcium Carbonate 750 MG TAB.CHEW PO (19:56)
[2023-11-21] MEDS: Piperacillin Sodium/Tazobactam 4.5 GM in 0.9 % Sodium Chloride 100 ML IV ×4 (00:07→18:49)
[2023-11-21] MEDS: Clindamycin Phosphate/D5W 900 MG/50 ML PIGGYBACK 50 MG IV ×3 (00:50→17:38)
[2023-11-21 01:14] VITALS: PULSE 84; RESP 24; O2SAT 93
[2023-11-21 03:01] VITALS: BP 145/82; PULSE 80; RESP 18; TEMP 36.8; O2SAT 92
[2023-11-21 06:30] LABS: MANUAL DIFF FLAG NO
[2023-11-21] MEDS: Morphine Sulfate 4 MG/ML CARTRIDGE IVPUSH ×2 (06:32→21:11)
[2023-11-21 06:36] LABS: Hematocrit 39.7 % (42.0-52.0); Hemoglobin 13.1 g/dl (14.0-18.0); Mean Corpuscular Hemoglobin 28.3 pg (27.0-33.0); Mean Corpuscular Volume 85.7 fL (80.0-98.0); Mean Platelet Volume 9.8 fL (9.4-12.4); Platelet Count 246 X10*3/uL (160-400); Red Blood Count 4.63 X10*6/uL (4.60-5.80); Red Cell Distribution Width 14.2 % (11.0-16.0)
[2023-11-21 06:37] LABS: Basophils Percent Auto 0.3 % (0-2); Eosinophils Percent Auto 0.1 % (0-4); Hematocrit 39.4 % (42.0-52.0); Imm Gran Abs Auto 0.14 X10*3/uL (0.00-0.03); Imm Gran Pct Auto 0.9 % (0.0-0.4); Lymphocytes Absolute Auto 1.5 X10*3/uL (1.2-4.9); Lymphocytes Percent Auto 10.2 % (20-40); Mean Corpuscular Hemoglobin 28.3 pg (27.0-33.0); Mean Corpuscular Volume 85.7 fL (80.0-98.0); Mean Platelet Volume 9.7 fL (9.4-12.4); Monocytes Absolute Auto 1.1 X10*3/uL (0.1-1.2); Monocytes Percent Auto 7.5 % (2-11); Neutrophils Absolute Auto 12.1 x10*3/uL (2.0-8.3); Platelet Count 241 X10*3/uL (160-400); Red Cell Distribution Width 14.2 % (11.0-16.0)
[2023-11-21 06:50] LABS: Anion Gap 15 (12-20); Carbon Dioxide 23 mmol/L (22-29); Chloride 104 mmol/L (96-108); Creatinine Clr Calc Pharmacy 175.7; Estimated Glomerular Filt Rate > 60; Potassium 4.3 mmol/L (3.3-5.1); Sodium 138 mmol/L (135-145)
[2023-11-21 06:52] LABS: Vancomycin Random 8.6 mcg/mL (15-20)
--- NOTE | 2023-11-21 07:10 | HE.PHANOTE ---
Vancomycin Dosing Addendum Vancomycin Trough 8.6, Increasing dose to 2000 mg q12h. Next level 11/22/23 @0600
[2023-11-21 07:48] VITALS: BP 130/73; PULSE 82; RESP 18; TEMP 36.3; O2SAT 98
[2023-11-21] MEDS: oxyCODONE HCl Immed Release 5 MG TABLET 10 MG PO (08:11)
[2023-11-21] MEDS: lisinopriL 10 MG TABLET PO (08:11)
[2023-11-21] MEDS: Docusate Sodium 100 MG CAPSULE PO ×2 (08:11→21:08)
[2023-11-21] MEDS: 0.9 % Sodium Chloride Flush 3 ML SYRINGE IVFLUSH ×3 (08:13→21:10)
--- NOTE | 2023-11-21 08:53 | HO.PM.IMPN ---
Subjective Subjective Date of Service: 11/21/23 Interval History: f/u on sepsis, right groin necrotizing soft tissue infection Underwent excisional debridement of the right groin for necrotizing soft tissue infection and is feeling much less pain today antibiotics broadly changed by ID yesterday to include Vanco, Zosyn and Clindamycin Physical Exam Vital Signs: Vital Signs: Last Vital Signs Temp 97.3 F 11/21/23 07:48 Pulse 82 11/21/23 07:48 Resp 18 11/21/23 07:48 BP 130/73 11/21/23 07:48 Pulse Ox 98 11/21/23 07:48 O2 Del Method Nasal Cannula 11/21/23 07:48 O2 Flow Rate 3 11/21/23 07:48 BMI result Body Mass Index 50.9 Const: Other: General: AO X 3, no acute distress Resp: CTA bilateral CVS: S1,S2,RRR GI: +BS, NT, no distention Skin: right groin now open wound with serosanguinous drainage Neuro: motor grossly intact Psych: appropriate affect Objective Data Active Medications Acetaminophen (Acetaminophen 325 Mg Tablet) 650 mg PO Q6H PRN PRN Reason: Pain, Mild (Pain Scale 1-3), fever or headache Last Admin: 11/20/23 14:20 Dose: 650 mg Documented By: RICO Atorvastatin Calcium (Atorvastatin Calcium 80 Mg Tablet) 80 mg PO BEDTIME [facility] Last Admin: 11/20/23 19:50 Dose: 80 mg Documented By: BRITTANY Calcium Carbonate (Calcium Carbonate 750 Mg Tab.Chew) 750 mg PO Q4H PRN PRN Reason: Heartburn Last Admin: 11/21/23 00:00 Dose: 750 mg Documented By: BRITTANY Docusate Sodium (Docusate Sodium 100 Mg Capsule) 100 mg PO BID [facility] Last Admin: 11/21/23 08:11 Dose: 100 mg Documented By: CARMEN Enoxaparin Sodium (Enoxaparin Sodium 40 Mg/0.4 Ml Syringe) 40 mg SUBCUT Q24H [facility] Last Admin: 11/20/23 10:54 Dose: 40 mg Documented By: RICO Clindamycin Phosphate (Cleocin) 900 mg in 50 mls @ 50 mls/hr IV Q8H [facility] Last Admin: 11/21/23 08:12 Dose: 50 mls/hr Documented By: CARMEN Piperacillin Sod/Tazobactam (Sod 4.5 gm/ Sodium Chloride) 100 mls @ 200 mls/hr IV Q6H [facility] Last Infusion: 11/21/23 05:58 Dose: Infused Documented By: BRITTANY Vancomycin HCl (Vancomycin/Ns) 2,000 mg in 500 mls @ 250 mls/hr IV Q12H [facility] Lisinopril (Lisinopril 10 Mg Tablet) 10 mg PO DAILY [facility]; Protocol Last Admin: 11/21/23 08:11 Dose: 10 mg Documented By: CARMEN Morphine Sulfate (Morphine Sulfate 4 Mg/Ml Cartridge) 4 mg IVPUSH Q4H PRN; Protocol PRN Reason: Pain, Severe (Pain Scale 7-10) Last Admin: 11/21/23 06:32 Dose: 4 mg Documented By: BRITTANY Oxycodone HCl (Oxycodone Hcl Immed Release 5 Mg Tablet) 10 mg PO Q4H PRN PRN Reason: Pain, Moderate(Pain Scale 4-6) Last Admin: 11/21/23 08:11 Dose: 10 mg Documented By: CARMEN Pharmacy Consult (Consult Rx Vancomycin Dosing) 1 each MISCELLANE DAILY PRN PRN Reason: Consult order Polyethylene Glycol (Polyethylene Glycol 3350 17 Gm Powd.Pack) 17 gm PO DAILY PRN PRN Reason: Constipation Sodium Chloride (0.9 % Sodium Chloride Flush 3 Ml Syringe) 3 ml IVFLUSH QSHIFT [facility] Last Admin: 11/21/23 08:13 Dose: 3 ml Documented By: CARMEN Labs 11/21/23 06:06 11/21/23 06:06 Labs: Laboratory Results - last 24 hr 11/21/23 11/21/23 11/21/23 06:06 06:06 06:06 MCV 85.7 85.7 MCH 28.3 28.3 MCHC 33.0 RDW Plt Count MPV Immature Gran % (Auto) Neut % (Auto) Lymph % (Auto) [place] % (Auto) Eos % (Auto) Baso % (Auto) Lymph # (Auto) [place] # (Auto) Eos # (Auto) Baso # (Auto) Abs Immat Gran (auto) Absolute Neuts (auto) Absolute Nucleated RBC Nucleated RBC % (auto) Anion Gap Estim Creat Clear Calc Estimated GFR Random Vancomycin 11/21/23 11/21/23 11/21/23 06:06 06:06 06:06 MCV MCH MCHC 33.0 RDW 14.2 14.2 Plt Count 241 246 MPV 9.7 Immature Gran % (Auto) Neut % (Auto) Lymph % (Auto) [place] % (Auto) Eos % (Auto) Baso % (Auto) Lymph # (Auto) [place] # (Auto) Eos # (Auto) Baso # (Auto) Abs Immat Gran (auto) Absolute Neuts (auto) Absolute Nucleated RBC Nucleated RBC % (auto) Anion Gap Estim Creat Clear Calc Estimated GFR Random Vancomycin 11/21/23 11/21/23 11/21/23 06:06 06:06 06:06 MCV MCH MCHC RDW Plt Count MPV 9.8 Immature Gran % (Auto) 0.9 H Neut % (Auto) 81.0 H Lymph % (Auto) 10.2 L [place] % (Auto) 7.5 Eos % (Auto) 0.1 Baso % (Auto) 0.3 Lymph # (Auto) 1.5 [place] # (Auto) 1.1 Eos # (Auto) 0.0 Baso # (Auto) 0.0 Abs Immat Gran (auto) 0.14 H Absolute Neuts (auto) 12.1 H Absolute Nucleated RBC 0.000 0.000 Nucleated RBC % (auto) 0.0 0.0 Anion Gap 15 Estim Creat Clear Calc 175.7 Estimated GFR > 60 Random Vancomycin 8.6 L Microbiology Microbiology Results: Microbiology 11/18/23 06:56 Blood Culture - Preliminary Blood - Arterial No growth after 48 hours. 11/18/23 06:56 Blood Culture - Preliminary Blood - Arterial No growth after 48 hours. Assessment and Plan (1) Cellulitis: Status: Acute (2) Leukocytosis: Status: Acute Plan This is a 38-year-old morbidly obese male with history of hypertension, TARA, reported prediabetes who presents with 2 day history of redness warmth and pain in his right upper thigh found to have cellulitis Sepsis due to right thigh/groin cellulitis and necrotizing soft tissue infection, not involving scrotum. sepsis resolved. -underwent excision and debridment on 11/19, cultures pending -Continue IV Vanco, Zosyn and Clinda per ID recommendation -oxycodone and morphine for pain Prediabetes, hemoglobin A1C is 6.9, diet control Hypertension with hypotension, now resolved hold lisinopril, HCTZ (). restart Lisinopril at 10 HLD continue statin elevated ALT chronically elevated likely due to NAFLD TARA CPAP at night and with naps Morbid obesity Likely due to excessive calories BMI 47.3 We loss encouraged - on wegovy for weight loss DVT ppx - Lovenox inpt: for IV Abx for necrotizing soft tissue infection of the right groin, with high risk to become brandt's gangrene Quality Stroke Does the patient have a stroke diagnosis?: No VTE Prior VTE?: No VTE Risk Level:: Medical - moderate - high VTE Device Contraindication: N/A - Device Ordered VTE Drug Contraindication: N/A - Med Ordered
[2023-11-21] MEDS: Morphine Sulfate 2 MG/ML CARTRIDGE IVPUSH (09:46)
[2023-11-21] MEDS: vancomycin/NS 2,000 MG/500 ML PLAST..BAG 250 MG IV ×2 (09:49→21:56)
--- NOTE | 2023-11-21 10:37 | P.PNGS_ITS ---
Subjective Subjective Date of Service: 11/21/23 <Michelle Cantor PA-C - Last Filed: 11/21/23 10:41> 11/21/23 <Silverio Bob MD - Last Filed: 11/21/23 12:28> Interval history: Feels a little better today. Pain controlled. Dressing had to be reinforced overnight. <Michelle Cantor PA-C - Last Filed: 11/21/23 10:41> Physical Exam 2 Vital Signs: Vital Signs: Last Vital Signs Temp 97.3 F 11/21/23 07:48 Pulse 82 11/21/23 07:48 Resp 18 11/21/23 07:48 BP 130/73 11/21/23 07:48 Pulse Ox 98 11/21/23 07:48 O2 Del Method Nasal Cannula 11/21/23 07:48 O2 Flow Rate 3 11/21/23 07:48 BMI result Body Mass Index 50.9 <Michelle Cantor PA-C - Last Filed: 11/21/23 10:41> Const: General: comfortable, no acute distress and alert <Michelle Cantor PA-C - Last Filed: 11/21/23 10:41> Orientation/consciousness: patient oriented x3 <Michelle Cantor PA-C - Last Filed: 11/21/23 10:41> Skin: Other: right groin with decreased erythema, edema and induration; packing removed and wound base clean and with good granulation tissue <Michelle Cantor PA-C - Last Filed: 11/21/23 10:41> Neuro: General: patient oriented x3 and moves all extremities <Michelle Cantor PA-C - Last Filed: 11/21/23 10:41> Objective Data Active Medications Acetaminophen (Acetaminophen 325 Mg Tablet) 650 mg PO Q6H PRN PRN Reason: Pain, Mild (Pain Scale 1-3), fever or headache Last Admin: 11/20/23 14:20 Dose: 650 mg Documented By: RICO Atorvastatin Calcium (Atorvastatin Calcium 80 Mg Tablet) 80 mg PO BEDTIME [facility] Last Admin: 11/20/23 19:50 Dose: 80 mg Documented By: BRITTANY Calcium Carbonate (Calcium Carbonate 750 Mg Tab.Chew) 750 mg PO Q4H PRN PRN Reason: Heartburn Last Admin: 11/21/23 00:00 Dose: 750 mg Documented By: BRITTANY Docusate Sodium (Docusate Sodium 100 Mg Capsule) 100 mg PO BID [facility] Last Admin: 11/21/23 08:11 Dose: 100 mg Documented By: CARMEN Enoxaparin Sodium (Enoxaparin Sodium 40 Mg/0.4 Ml Syringe) 40 mg SUBCUT Q24H [facility] Last Admin: 11/20/23 10:54 Dose: 40 mg Documented By: RICO Clindamycin Phosphate (Cleocin) 900 mg in 50 mls @ 50 mls/hr IV Q8H [facility] Last Infusion: 11/21/23 09:49 Dose: Infused Documented By: CARMEN Piperacillin Sod/Tazobactam (Sod 4.5 gm/ Sodium Chloride) 100 mls @ 200 mls/hr IV Q6H [facility] Last Infusion: 11/21/23 05:58 Dose: Infused Documented By: BRITTANY Vancomycin HCl (Vancomycin/Ns) 2,000 mg in 500 mls @ 250 mls/hr IV Q12H [facility] Last Admin: 11/21/23 09:49 Dose: 250 mls/hr Documented By: CARMEN Lisinopril (Lisinopril 10 Mg Tablet) 10 mg PO DAILY [facility]; Protocol Last Admin: 11/21/23 08:11 Dose: 10 mg Documented By: CARMEN Morphine Sulfate (Morphine Sulfate 4 Mg/Ml Cartridge) 4 mg IVPUSH Q4H PRN; Protocol PRN Reason: Pain, Severe (Pain Scale 7-10) Last Admin: 11/21/23 06:32 Dose: 4 mg Documented By: BRITTANY Oxycodone HCl (Oxycodone Hcl Immed Release 5 Mg Tablet) 10 mg PO Q4H PRN PRN Reason: Pain, Moderate(Pain Scale 4-6) Last Admin: 11/21/23 08:11 Dose: 10 mg Documented By: CARMEN Pharmacy Consult (Consult Rx Vancomycin Dosing) 1 each MISCELLANE DAILY PRN PRN Reason: Consult order Polyethylene Glycol (Polyethylene Glycol 3350 17 Gm Powd.Pack) 17 gm PO DAILY PRN PRN Reason: Constipation Sodium Chloride (0.9 % Sodium Chloride Flush 3 Ml Syringe) 3 ml IVFLUSH QSHIFT [facility] Last Admin: 11/21/23 08:13 Dose: 3 ml Documented By: CARMEN <Michelle Cantor PA-C - Last Filed: 11/21/23 10:41> Labs CBC & Chem 7: 11/21/23 06:06 11/21/23 06:06 <Michelle Cantor PA-C - Last Filed: 11/21/23 10:41> Labs: Laboratory Results - last 24 hr 11/21/23 11/21/23 11/21/23 06:06 06:06 06:06 MCV 85.7 85.7 MCH 28.3 28.3 MCHC 33.0 RDW Plt Count MPV Immature Gran % (Auto) Neut % (Auto) Lymph % (Auto) [place] % (Auto) Eos % (Auto) Baso % (Auto) Lymph # (Auto) [place] # (Auto) Eos # (Auto) Baso # (Auto) Abs Immat Gran (auto) Absolute Neuts (auto) Absolute Nucleated RBC Nucleated RBC % (auto) Anion Gap Estim Creat Clear Calc Estimated GFR Random Vancomycin 11/21/23 11/21/23 11/21/23 06:06 06:06 06:06 MCV MCH MCHC 33.0 RDW 14.2 14.2 Plt Count 241 246 MPV 9.7 Immature Gran % (Auto) Neut % (Auto) Lymph % (Auto) [place] % (Auto) Eos % (Auto) Baso % (Auto) Lymph # (Auto) [place] # (Auto) Eos # (Auto) Baso # (Auto) Abs Immat Gran (auto) Absolute Neuts (auto) Absolute Nucleated RBC Nucleated RBC % (auto) Anion Gap Estim Creat Clear Calc Estimated GFR Random Vancomycin 11/21/23 11/21/23 11/21/23 06:06 06:06 06:06 MCV MCH MCHC RDW Plt Count MPV 9.8 Immature Gran % (Auto) 0.9 H Neut % (Auto) 81.0 H Lymph % (Auto) 10.2 L [place] % (Auto) 7.5 Eos % (Auto) 0.1 Baso % (Auto) 0.3 Lymph # (Auto) 1.5 [place] # (Auto) 1.1 Eos # (Auto) 0.0 Baso # (Auto) 0.0 Abs Immat Gran (auto) 0.14 H Absolute Neuts (auto) 12.1 H Absolute Nucleated RBC 0.000 0.000 Nucleated RBC % (auto) 0.0 0.0 Anion Gap 15 Estim Creat Clear Calc 175.7 Estimated GFR > 60 Random Vancomycin 8.6 L <Michelle Cantor PA-C - Last Filed: 11/21/23 10:41> Microbiology Microbiology Results: Microbiology 11/20/23 Unknown Gram Stain - Final Groin, Right Routine Culture - Preliminary Culture in progress. 11/18/23 06:56 Blood Culture - Preliminary Blood - Arterial No growth after 48 hours. 11/18/23 06:56 Blood Culture - Preliminary Blood - Arterial No growth after 48 hours. <Michelle Cantor PA-C - Last Filed: 11/21/23 10:41> Procedures Date of Service Date of Service: 11/21/23 <Michelle Cantor PA-C - Last Filed: 11/21/23 10:41> 11/21/23 <Silverio Bob MD - Last Filed: 11/21/23 12:28> Progress Note: A&P Assessment and plan (1) Necrotizing soft tissue infection: Status: Acute <Michelle Cantor PA-C - Last Filed: 11/21/23 10:41> Assessment and Plan: Area of right thigh/groin much improved after debridement yesterday Dressings changed Wound clean and granulating Packing replaced Continue daily wound care with wet-to-dry packing, dressings Pain management Seen and examined independently <Silverio Bob MD - Last Filed: 11/21/23 12:28> Assessment and Plan: POD #1 s/p excisional debridement of right groin for necrotizing infection soft tissue. Surrounding cellulitis significantly improved this morning. Wound base clean and granulating well. Wound repacked with wet to dry kerlix roll followed by fluffs and heavy drainage dressing. Cont daily dressing changes and local wound care. Cont IV abx. <Michelle Cantor PA-C - Last Filed: 11/21/23 10:41> Time Spent With Patient Time: Total time managing care of this patient today ____ minutes. <Michelle Cantor PA-C - Last Filed: 11/21/23 10:41> Quality Stroke Does the patient have a stroke diagnosis?: No <Michelle Cantor PA-C - Last Filed: 11/21/23 10:41> VTE Prior VTE?: No <Michelle Cantor PA-C - Last Filed: 11/21/23 10:41> VTE Risk Level:: Medical - moderate - high <Michelle Cantor PA-C - Last Filed: 11/21/23 10:41> VTE Device Contraindication: N/A - Device Ordered <Michelle Cantor PA-C - Last Filed: 11/21/23 10:41> VTE Drug Contraindication: N/A - Med Ordered <Michelle Cantor PA-C - Last Filed: 11/21/23 10:41>
[2023-11-21] MEDS: Enoxaparin Sodium 40 MG/0.4 ML SYRINGE SUBCUT (13:19)
--- NOTE | 2023-11-21 13:45 | HO.POSTANES ---
Post Anesthesia Evaluation Post Anesthesia Evaluation Date of Service: 11/20/23 Vital Signs: Vital Signs Temp Pulse Resp BP Pulse Ox O2 Del Method O2 Flow Rate 11/21/23 07:48 97.3 F 82 18 130/73 98 Nasal Cannula 3 11/21/23 03:01 98.2 F 80 18 145/82 H 92 CPAP Anesthesia: General Mental Status: Awake Pain Control: Satisfactory Nausea/Vomiting: None Hydration: Adequate Anesthesia-Related Issues: No Anes. Related Issues
[2023-11-21 15:05] VITALS: BP 126/63; PULSE 83; RESP 18; TEMP 36.4; O2SAT 95
[2023-11-21 18:58] VITALS: BP 125/64; PULSE 95; RESP 18; TEMP 36.4; O2SAT 94
[2023-11-21] MEDS: Atorvastatin Calcium 80 MG TABLET PO (21:08)
[2023-11-21] MEDS: Calcium Carbonate 750 MG TAB.CHEW PO ×2 (21:25)
[2023-11-22] VITALS (8 sets, daily range): BP systolic 130–178; BP diastolic 70–107; PULSE 67–97; RESP 18–22; TEMP 36.1–36.8; O2SAT 92–96
[2023-11-22] MEDS: Piperacillin Sodium/Tazobactam 4.5 GM in 0.9 % Sodium Chloride 100 ML IV ×3 (00:05→11:41)
[2023-11-22] MEDS: Clindamycin Phosphate/D5W 900 MG/50 ML PIGGYBACK 50 MG IV ×2 (00:41→07:31)
[2023-11-22] MEDS: Acetaminophen 325 MG TABLET 650 MG PO ×3 (04:16→22:31)
[2023-11-22] MEDS: oxyCODONE HCl Immed Release 5 MG TABLET 10 MG PO ×5 (04:17→22:30)
[2023-11-22 07:03] LABS: Creatinine Clr Calc Pharmacy 156.8; Estimated Glomerular Filt Rate > 60
[2023-11-22 07:14] LABS: Vancomycin Random 15.9 mcg/mL (15-20)
[2023-11-22] MEDS: lisinopriL 10 MG TABLET PO (07:30)
[2023-11-22] MEDS: Docusate Sodium 100 MG CAPSULE PO ×2 (07:31→20:06)
[2023-11-22] MEDS: Morphine Sulfate 4 MG/ML CARTRIDGE IVPUSH ×2 (07:37→20:06)
--- NOTE | 2023-11-22 07:54 | HO.PM.IMPN ---
Subjective Subjective Date of Service: 11/22/23 Interval History: f/u on sepsis, right groin necrotizing soft tissue infection Underwent excisional debridement of the right groin for necrotizing soft tissue infection on 11/19, and continue to feel better, no fever Physical Exam Vital Signs: Vital Signs: Last Vital Signs Temp 98.2 F 11/22/23 04:00 Pulse 80 11/22/23 04:00 Resp 18 11/22/23 04:00 BP 132/70 11/22/23 04:00 Pulse Ox 92 11/22/23 04:00 O2 Del Method Room Air 11/22/23 04:00 O2 Flow Rate 3 11/21/23 15:05 BMI result Body Mass Index 50.9 Const: Other: General: AO X 3, no acute distress Resp: CTA bilateral CVS: S1,S2,RRR GI: +BS, NT, no distention Skin: right groin wound as pictured today during dressing change Neuro: motor grossly intact Psych: appropriate affect Objective Data Active Medications Acetaminophen (Acetaminophen 325 Mg Tablet) 650 mg PO Q6H PRN PRN Reason: Pain, Mild (Pain Scale 1-3), fever or headache Last Admin: 11/22/23 04:16 Dose: 650 mg Documented By: BRITTANY Comments: pt request to take Tylenol with oxycodone Atorvastatin Calcium (Atorvastatin Calcium 80 Mg Tablet) 80 mg PO BEDTIME [facility] Last Admin: 11/21/23 21:08 Dose: 80 mg Documented By: BRITTANY Calcium Carbonate (Calcium Carbonate 750 Mg Tab.Chew) 750 mg PO Q4H PRN PRN Reason: Heartburn Last Admin: 11/21/23 21:25 Dose: 750 mg Documented By: BRITTANY Docusate Sodium (Docusate Sodium 100 Mg Capsule) 100 mg PO BID [facility] Last Admin: 11/22/23 07:31 Dose: 100 mg Documented By: RICO Enoxaparin Sodium (Enoxaparin Sodium 40 Mg/0.4 Ml Syringe) 40 mg SUBCUT Q24H [facility] Last Admin: 11/21/23 13:19 Dose: 40 mg Documented By: CARMEN Clindamycin Phosphate (Cleocin) 900 mg in 50 mls @ 50 mls/hr IV Q8H [facility] Last Admin: 11/22/23 07:31 Dose: 50 mls/hr Documented By: RICO Piperacillin Sod/Tazobactam (Sod 4.5 gm/ Sodium Chloride) 100 mls @ 200 mls/hr IV Q6H [facility] Last Infusion: 11/22/23 05:44 Dose: Infused Documented By: BRITTANY Vancomycin HCl 1,250 mg/ (Sodium Chloride) 250 mls @ 166.667 mls/hr IV Q8H [facility] Lisinopril (Lisinopril 10 Mg Tablet) 10 mg PO DAILY [facility]; Protocol Last Admin: 11/22/23 07:30 Dose: 10 mg Documented By: RICO Morphine Sulfate (Morphine Sulfate 4 Mg/Ml Cartridge) 4 mg IVPUSH Q4H PRN; Protocol PRN Reason: Pain, Severe (Pain Scale 7-10) Last Admin: 11/22/23 07:37 Dose: 4 mg Documented By: RICO Oxycodone HCl (Oxycodone Hcl Immed Release 5 Mg Tablet) 10 mg PO Q4H PRN PRN Reason: Pain, Moderate(Pain Scale 4-6) Last Admin: 11/22/23 04:17 Dose: 10 mg Documented By: BRITTANY Pharmacy Consult (Consult Rx Vancomycin Dosing) 1 each MISCELLANE DAILY PRN PRN Reason: Consult order Polyethylene Glycol (Polyethylene Glycol 3350 17 Gm Powd.Pack) 17 gm PO DAILY PRN PRN Reason: Constipation Sodium Chloride (0.9 % Sodium Chloride Flush 3 Ml Syringe) 3 ml IVFLUSH QSHIFT [facility] Last Admin: 11/22/23 07:31 Dose: Not Given Documented By: RICO Non-Admin Reason: IV Running Labs 11/21/23 06:06 11/22/23 05:45 Labs: Laboratory Results - last 24 hr 11/22/23 05:45 Hold Purple Top SEE NOTE Estim Creat Clear Calc 156.8 Estimated GFR > 60 Random Vancomycin 15.9 Microbiology Microbiology Results: Microbiology 11/20/23 Unknown Gram Stain - Final Groin, Right Routine Culture - Preliminary Culture in progress. Assessment and Plan (1) Cellulitis: Status: Acute (2) Leukocytosis: Status: Acute Plan This is a 38-year-old morbidly obese male with history of hypertension, TARA, reported prediabetes who presents with 2 day history of redness warmth and pain in his right upper thigh found to have cellulitis Sepsis due to right thigh/groin cellulitis and necrotizing soft tissue infection, not involving scrotum. sepsis resolved. -underwent excision and debridment on 11/19, cultures pending -Continue IV Vanco, Zosyn and Clinda per ID recommendation--> discuss with ID about narrowing down -oxycodone and morphine for pain. Follow WBC.. Dressing changes by surgery Prediabetes, hemoglobin A1C is 6.9, diet control Hypertension with hypotension, now resolved Continue Lisinipril at 10 mg, half home dose HLD continue statin elevated ALT chronically elevated likely due to NAFLD TARA CPAP at night and with naps Morbid obesity Likely due to excessive calories BMI 47.3 We loss encouraged - on wegovy for weight loss DVT ppx - Lovenox inpt: for IV Abx for necrotizing soft tissue infection of the right groin, with high risk to become brandt's gangrene Quality Stroke Does the patient have a stroke diagnosis?: No VTE Prior VTE?: No VTE Risk Level:: Medical - moderate - high VTE Device Contraindication: N/A - Device Ordered VTE Drug Contraindication: N/A - Med Ordered
--- NOTE | 2023-11-22 08:13 | PM.PNGS ---
Subjective Subjective Date of Service: 11/22/23 <Michelle Cantor PA-C - Last Filed: 11/22/23 08:15> 11/22/23 <Silverio Bob MD - Last Filed: 11/22/23 08:23> Interval history: Feels overall better. <Michelle Cantor PA-C - Last Filed: 11/22/23 08:15> Physical Exam Vital Signs: Vital Signs: Last Vital Signs Temp 97.0 F 11/22/23 07:58 Pulse 84 11/22/23 07:58 Resp 18 11/22/23 07:58 BP 170/107 H 11/22/23 07:58 Pulse Ox 94 11/22/23 07:58 O2 Del Method Room Air 11/22/23 07:58 O2 Flow Rate 3 11/21/23 15:05 BMI result Body Mass Index 50.9 <Michelle Cantor PA-C - Last Filed: 11/22/23 08:15> Const: General: comfortable, no acute distress and alert <Michelle Cantor PA-C - Last Filed: 11/22/23 08:15> Resp: Effort & Inspection: normal respiratory effort <Michelle Cantor PA-C - Last Filed: 11/22/23 08:15> Skin: Other: R groin dressing change by Dr. Bob, clean appearing, surrounding cellulitis improved, no necrosis or purulence <Michelle Cantor PA-C - Last Filed: 11/22/23 08:15> Objective Data Active Medications Acetaminophen (Acetaminophen 325 Mg Tablet) 650 mg PO Q6H PRN PRN Reason: Pain, Mild (Pain Scale 1-3), fever or headache Last Admin: 11/22/23 04:16 Dose: 650 mg Documented By: BRITTANY Comments: pt request to take Tylenol with oxycodone Atorvastatin Calcium (Atorvastatin Calcium 80 Mg Tablet) 80 mg PO BEDTIME [facility] Last Admin: 11/21/23 21:08 Dose: 80 mg Documented By: BRITTANY Calcium Carbonate (Calcium Carbonate 750 Mg Tab.Chew) 750 mg PO Q4H PRN PRN Reason: Heartburn Last Admin: 11/21/23 21:25 Dose: 750 mg Documented By: BRITTANY Docusate Sodium (Docusate Sodium 100 Mg Capsule) 100 mg PO BID [facility] Last Admin: 11/22/23 07:31 Dose: 100 mg Documented By: RICO Enoxaparin Sodium (Enoxaparin Sodium 40 Mg/0.4 Ml Syringe) 40 mg SUBCUT Q24H [facility] Last Admin: 11/21/23 13:19 Dose: 40 mg Documented By: CARMEN Clindamycin Phosphate (Cleocin) 900 mg in 50 mls @ 50 mls/hr IV Q8H [facility] Last Admin: 11/22/23 07:31 Dose: 50 mls/hr Documented By: RICO Piperacillin Sod/Tazobactam (Sod 4.5 gm/ Sodium Chloride) 100 mls @ 200 mls/hr IV Q6H [facility] Last Infusion: 11/22/23 05:44 Dose: Infused Documented By: BRITTANY Vancomycin HCl 1,250 mg/ (Sodium Chloride) 250 mls @ 166.667 mls/hr IV Q8H [facility] Lisinopril (Lisinopril 10 Mg Tablet) 10 mg PO DAILY [facility]; Protocol Last Admin: 11/22/23 07:30 Dose: 10 mg Documented By: RICO Morphine Sulfate (Morphine Sulfate 4 Mg/Ml Cartridge) 4 mg IVPUSH Q4H PRN; Protocol PRN Reason: Pain, Severe (Pain Scale 7-10) Last Admin: 11/22/23 07:37 Dose: 4 mg Documented By: RICO Oxycodone HCl (Oxycodone Hcl Immed Release 5 Mg Tablet) 10 mg PO Q4H PRN PRN Reason: Pain, Moderate(Pain Scale 4-6) Last Admin: 11/22/23 07:58 Dose: 10 mg Documented By: RICO Pharmacy Consult (Consult Rx Vancomycin Dosing) 1 each MISCELLANE DAILY PRN PRN Reason: Consult order Polyethylene Glycol (Polyethylene Glycol 3350 17 Gm Powd.Pack) 17 gm PO DAILY PRN PRN Reason: Constipation Sodium Chloride (0.9 % Sodium Chloride Flush 3 Ml Syringe) 3 ml IVFLUSH QSHIFT [facility] Last Admin: 11/22/23 07:31 Dose: Not Given Documented By: RICO Non-Admin Reason: IV Running <Michelle Cantor PA-C - Last Filed: 11/22/23 08:15> Labs CBC & Chem 7: 11/21/23 06:06 11/22/23 05:45 <Michelle Cantor PA-C - Last Filed: 11/22/23 08:15> Labs: Laboratory Results - last 24 hr 11/22/23 05:45 Hold Purple Top SEE NOTE Estim Creat Clear Calc 156.8 Estimated GFR > 60 Random Vancomycin 15.9 <Michelle Cantor PA-C - Last Filed: 11/22/23 08:15> Microbiology Microbiology Results: Microbiology 11/20/23 Unknown Gram Stain - Final Groin, Right Routine Culture - Preliminary Culture in progress. <Michelle Cantor PA-C - Last Filed: 11/22/23 08:15> Procedures Date of Service Date of Service: 11/22/23 <Michelle Cantor PA-C - Last Filed: 11/22/23 08:15> 11/22/23 <Silverio Bob MD - Last Filed: 11/22/23 08:23> Progress Note: A&P Assessment and plan (1) Necrotizing soft tissue infection: Status: Acute <Michelle Cantor PA-C - Last Filed: 11/22/23 08:15> Assessment and Plan: Feels much better Pain and induration have improved significantly Dressings changed Wound clean, viable tissue seen within wound base, induration much less Like wet-to-dry packing reapplied Continue daily wound care IV antibiotics Seen and examined independently <Silverio Bob MD - Last Filed: 11/22/23 08:23> Assessment and Plan: POD #2 s/p excisional debridement of right groin for necrotizing infection soft tissue. Patient feels improved. Surrounding cellulitis continues to improve. Wound base remains clean and granulating well. Wound repacked with wet to dry kerlix roll followed by fluffs and heavy drainage dressing. Cont daily dressing changes and local wound care. Cont IV abx. <Michelle Cantor PA-C - Last Filed: 11/22/23 08:15> Time Spent With Patient Time: Total time managing care of this patient today ____ minutes. <MK Armstrong Last Filed: 11/22/23 08:15> Quality Stroke Does the patient have a stroke diagnosis?: No <Michelle Cantor PA-C - Last Filed: 11/22/23 08:15> VTE Prior VTE?: No <Michelle Cantor PA-C - Last Filed: 11/22/23 08:15> VTE Risk Level:: Medical - moderate - high <Michelle Cantor PA-C - Last Filed: 11/22/23 08:15> VTE Device Contraindication: N/A - Device Ordered <Michelle Cantor PA-C - Last Filed: 11/22/23 08:15> VTE Drug Contraindication: N/A - Med Ordered <Michelle Cantor PA-C - Last Filed: 11/22/23 08:15>
[2023-11-22] MEDS: vancomycin HCL 1,250 MG in 0.9 % Sodium Chloride 250 ML 166.67 MG IV (08:43)
[2023-11-22 10:26] LABS: MANUAL DIFF FLAG NO
[2023-11-22 10:29] LABS: Basophils Absolute Auto 0.1 X10*3/uL (0.0-0.2); Eosinophils Absolute Auto 0.4 X10*3/uL (0.0-0.4); Eosinophils Percent Auto 3.5 % (0-4); Hematocrit 39.3 % (42.0-52.0); Hemoglobin 12.7 g/dl (14.0-18.0); Imm Gran Abs Auto 0.08 X10*3/uL (0.00-0.03); Imm Gran Pct Auto 0.7 % (0.0-0.4); Lymphocytes Absolute Auto 2.3 X10*3/uL (1.2-4.9); Lymphocytes Percent Auto 21.9 % (20-40); Mean Corpuscular HGB Conc 32.3 g/dl (31.0-36.0); Mean Corpuscular Hemoglobin 28.3 pg (27.0-33.0); Mean Corpuscular Volume 87.7 fL (80.0-98.0); Mean Platelet Volume 9.7 fL (9.4-12.4); Neutrophils Absolute Auto 6.8 x10*3/uL (2.0-8.3); Neutrophils Percent Auto 63.9 % (45-73); Platelet Count 273 X10*3/uL (160-400); Red Blood Count 4.48 X10*6/uL (4.60-5.80); Red Cell Distribution Width 14.5 % (11.0-16.0); White Blood Count 10.7 X10*3/uL (4.8-10.8)
[2023-11-22 10:33] LABS: Anion Gap 14 (12-20)
[2023-11-22 10:35] LABS: Blood Urea Nitrogen 12 mg/dL (9-16); Calcium 8.7 mg/dL (8.4-10.2); Carbon Dioxide 24 mmol/L (22-29); Chloride 105 mmol/L (96-108); Glucose Random 96 mg/dL (60-115); Sodium 139 mmol/L (135-145)
[2023-11-22] MEDS: Enoxaparin Sodium 40 MG/0.4 ML SYRINGE SUBCUT (11:41)
--- NOTE | 2023-11-22 12:53 | MHC.CM.PN ---
EMR reviewed and per MD rounds, pt is not medically cleared for discharge due to management of necrotizing soft tissue infection of the right groin requiring IV antibiotics.
[2023-11-22] MEDS: cefTRIAXone sodium 2 GM in 0.9 % Sodium Chloride 50 ML IV (14:23)
[2023-11-22] MEDS: 0.9 % Sodium Chloride Flush 3 ML SYRINGE IVFLUSH ×2 (16:12→20:06)
[2023-11-22] MEDS: Atorvastatin Calcium 80 MG TABLET PO (20:06)
[2023-11-22] MEDS: Calcium Carbonate 750 MG TAB.CHEW PO (22:31)
[2023-11-23] VITALS (8 sets, daily range): BP systolic 143–162; BP diastolic 80–93; PULSE 69–92; RESP 15–20; TEMP 36.2–36.9; O2SAT 93–98
[2023-11-23] MEDS: lisinopriL 10 MG TABLET PO ×2 (07:55→10:24)
[2023-11-23] MEDS: oxyCODONE HCl Immed Release 5 MG TABLET 10 MG PO ×2 (07:56→20:02)
[2023-11-23] MEDS: Docusate Sodium 100 MG CAPSULE PO ×2 (07:56→20:02)
[2023-11-23] MEDS: Acetaminophen 325 MG TABLET 650 MG PO ×2 (07:56→20:02)
--- NOTE | 2023-11-23 10:03 | P.PNIM_ITS ---
Subjective Subjective Date of Service: 11/23/23 Interval History: f/u on sepsis, right groin necrotizing soft tissue infection Underwent excisional debridement of the right groin for necrotizing soft tissue infection on 11/19, and continue to improve, pain is overall better Physical Exam 2 Vital Signs: Vital Signs: Last Vital Signs Temp 97.5 F 11/23/23 07:37 Pulse 82 11/23/23 07:37 Resp 20 11/23/23 07:37 BP 160/80 H 11/23/23 07:55 Pulse Ox 94 11/23/23 07:37 O2 Del Method Room Air 11/23/23 07:37 O2 Flow Rate 3 11/21/23 15:05 BMI result Body Mass Index 50.9 Const: Other: General: AO X 3, no acute distress Resp: CTA bilateral CVS: S1,S2,RRR GI: +BS, NT, no distention Skin: right groin wound as pictured today during dressing change on 11/21, essentially unchanged Neuro: motor grossly intact Psych: appropriate affect Objective Data Active Medications Acetaminophen (Acetaminophen 325 Mg Tablet) 650 mg PO Q6H PRN PRN Reason: Pain, Mild (Pain Scale 1-3), fever or headache Last Admin: 11/23/23 07:56 Dose: 650 mg Documented By: KESHIA Atorvastatin Calcium (Atorvastatin Calcium 80 Mg Tablet) 80 mg PO BEDTIME [facility] Last Admin: 11/22/23 20:06 Dose: 80 mg Documented By: COLLIN Calcium Carbonate (Calcium Carbonate 750 Mg Tab.Chew) 750 mg PO Q4H PRN PRN Reason: Heartburn Last Admin: 11/22/23 22:31 Dose: 750 mg Documented By: COLLIN Docusate Sodium (Docusate Sodium 100 Mg Capsule) 100 mg PO BID [facility] Last Admin: 11/23/23 07:56 Dose: 100 mg Documented By: KESHIA Enoxaparin Sodium (Enoxaparin Sodium 40 Mg/0.4 Ml Syringe) 40 mg SUBCUT Q24H [facility] Last Admin: 11/22/23 11:41 Dose: 40 mg Documented By: RICO Ceftriaxone Sodium 2 gm/ (Sodium Chloride) 50 mls @ 100 mls/hr IV Q24H [facility] Last Infusion: 11/22/23 14:58 Dose: Infused Documented By: RICO Lisinopril (Lisinopril 10 Mg Tablet) 10 mg PO DAILY [facility]; Protocol Last Admin: 11/23/23 07:55 Dose: 10 mg Documented By: KESHIA Morphine Sulfate (Morphine Sulfate 4 Mg/Ml Cartridge) 4 mg IVPUSH Q4H PRN; Protocol PRN Reason: Pain, Severe (Pain Scale 7-10) Last Admin: 11/22/23 20:06 Dose: 4 mg Documented By: COLLIN Oxycodone HCl (Oxycodone Hcl Immed Release 5 Mg Tablet) 10 mg PO Q4H PRN PRN Reason: Pain, Moderate(Pain Scale 4-6) Last Admin: 11/23/23 07:56 Dose: 10 mg Documented By: KESHIA Polyethylene Glycol (Polyethylene Glycol 3350 17 Gm Powd.Pack) 17 gm PO DAILY PRN PRN Reason: Constipation Sodium Chloride (0.9 % Sodium Chloride Flush 3 Ml Syringe) 3 ml IVFLUSH QSHIFT [facility] Last Admin: 11/23/23 09:31 Dose: Not Given Documented By: KESHIA Non-Admin Reason: unavaliable Labs 11/22/23 05:45 11/22/23 05:45 Labs: Laboratory Results - last 24 hr 11/22/23 05:45 MCV 87.7 MCH 28.3 MCHC 32.3 RDW 14.5 Plt Count 273 MPV 9.7 Immature Gran % (Auto) 0.7 H Neut % (Auto) 63.9 Lymph % (Auto) 21.9 [place] % (Auto) 9.0 Eos % (Auto) 3.5 Baso % (Auto) 1.0 Lymph # (Auto) 2.3 [place] # (Auto) 1.0 Eos # (Auto) 0.4 Baso # (Auto) 0.1 Abs Immat Gran (auto) 0.08 H Absolute Neuts (auto) 6.8 Absolute Nucleated RBC 0.000 Nucleated RBC % (auto) 0.0 Anion Gap 14 Estim Creat Clear Calc 156.8 Estimated GFR > 60 Random Glucose 96 Calcium 8.7 Microbiology Microbiology Results: Microbiology 11/18/23 06:56 Blood Culture - Final Blood - Arterial No growth after 5 days. 11/18/23 06:56 Blood Culture - Final Blood - Arterial No growth after 5 days. 07/01/24 Unknown Gram Stain - Final Groin, Right Routine Culture - Final Strep agalactiae (Grp B) Assessment and Plan (1) Cellulitis: Status: Acute (2) Leukocytosis: Status: Acute Plan This is a 38-year-old morbidly obese male with history of hypertension, TARA, reported prediabetes who presents with 2 day history of redness warmth and pain in his right upper thigh found to have cellulitis Sepsis due to right thigh/groin cellulitis and necrotizing soft tissue infection, not involving scrotum. sepsis resolved. -underwent excision and debridment on 11/19, wound culture = Group BS strep -Continue IV Vanco, Zosyn and Clinda changed to Ceftriaxone on 11/21 -oxycodone and morphine for pain. Follow WBC.. Dressing changes by surgery Prediabetes, hemoglobin A1C is 6.9, diet control Hypertension with hypotension, now resolved Continue Lisinipril increased to home does of 20/daily restart HCTZ tomorrow if BP ok HLD continue statin elevated ALT chronically elevated likely due to NAFLD TARA CPAP at night and with naps Morbid obesity Likely due to excessive calories BMI 47.3 We loss encouraged - on wegovy for weight loss DVT ppx - Lovenox inpt: for IV Abx for necrotizing soft tissue infection of the right groin, with high risk to become brandt's gangrene out of bed ambulate Quality Stroke Does the patient have a stroke diagnosis?: No VTE Prior VTE?: No VTE Risk Level:: Medical - moderate - high VTE Device Contraindication: N/A - Device Ordered VTE Drug Contraindication: N/A - Med Ordered
--- NOTE | 2023-11-23 10:26 | PM.PNGS ---
Subjective Subjective Date of Service: 11/23/23 Interval history: Patient is feeling better walking around the leg feels less tender less erythematous he says. No fevers or chills Physical Exam Vital Signs: Vital Signs: Last Vital Signs Temp 97.5 F 11/23/23 07:37 Pulse 82 11/23/23 07:37 Resp 20 11/23/23 07:37 BP 160/80 H 11/23/23 10:24 Pulse Ox 94 11/23/23 07:37 O2 Del Method Room Air 11/23/23 07:37 O2 Flow Rate 3 11/21/23 15:05 BMI result Body Mass Index 50.9 Const: General: cooperative, healthy appearing, comfortable and no acute distress Skin: Other: Patient is able to move around okay. Right groin dressings removed and the surrounding skin feels less indurated and with his dark complexion it is hard to tell significant erythema but I believe it is better than it was. He agrees with that. The actual cavity of the wound looks nice and clean with pink healthier tissue forming. No undrained areas noted Objective Data Active Medications Acetaminophen (Acetaminophen 325 Mg Tablet) 650 mg PO Q6H PRN PRN Reason: Pain, Mild (Pain Scale 1-3), fever or headache Last Admin: 11/23/23 07:56 Dose: 650 mg Documented By: KESHIA Atorvastatin Calcium (Atorvastatin Calcium 80 Mg Tablet) 80 mg PO BEDTIME [facility] Last Admin: 11/22/23 20:06 Dose: 80 mg Documented By: COLLIN Calcium Carbonate (Calcium Carbonate 750 Mg Tab.Chew) 750 mg PO Q4H PRN PRN Reason: Heartburn Last Admin: 11/22/23 22:31 Dose: 750 mg Documented By: COLLIN Docusate Sodium (Docusate Sodium 100 Mg Capsule) 100 mg PO BID [facility] Last Admin: 11/23/23 07:56 Dose: 100 mg Documented By: KESHIA Enoxaparin Sodium (Enoxaparin Sodium 40 Mg/0.4 Ml Syringe) 40 mg SUBCUT Q24H [facility] Last Admin: 11/22/23 11:41 Dose: 40 mg Documented By: RICO Ceftriaxone Sodium 2 gm/ (Sodium Chloride) 50 mls @ 100 mls/hr IV Q24H [facility] Last Infusion: 11/22/23 14:58 Dose: Infused Documented By: RICO Lisinopril (Lisinopril 20 Mg Tablet) 20 mg PO DAILY [facility]; Protocol Morphine Sulfate (Morphine Sulfate 4 Mg/Ml Cartridge) 4 mg IVPUSH Q4H PRN; Protocol PRN Reason: Pain, Severe (Pain Scale 7-10) Last Admin: 11/22/23 20:06 Dose: 4 mg Documented By: COLLIN Oxycodone HCl (Oxycodone Hcl Immed Release 5 Mg Tablet) 10 mg PO Q4H PRN PRN Reason: Pain, Moderate(Pain Scale 4-6) Last Admin: 11/23/23 07:56 Dose: 10 mg Documented By: KESHIA Polyethylene Glycol (Polyethylene Glycol 3350 17 Gm Powd.Pack) 17 gm PO DAILY PRN PRN Reason: Constipation Sodium Chloride (0.9 % Sodium Chloride Flush 3 Ml Syringe) 3 ml IVFLUSH QSHIFT [facility] Last Admin: 11/23/23 09:31 Dose: Not Given Documented By: KESHIA Non-Admin Reason: unavaliable Labs 11/22/23 05:45 11/23/23 10:39 Labs: Laboratory Results - last 24 hr 11/22/23 05:45 MCV 87.7 MCH 28.3 MCHC 32.3 RDW 14.5 Plt Count 273 MPV 9.7 Immature Gran % (Auto) 0.7 H Neut % (Auto) 63.9 Lymph % (Auto) 21.9 [place] % (Auto) 9.0 Eos % (Auto) 3.5 Baso % (Auto) 1.0 Lymph # (Auto) 2.3 [place] # (Auto) 1.0 Eos # (Auto) 0.4 Baso # (Auto) 0.1 Abs Immat Gran (auto) 0.08 H Absolute Neuts (auto) 6.8 Absolute Nucleated RBC 0.000 Nucleated RBC % (auto) 0.0 Anion Gap 14 Random Glucose 96 Calcium 8.7 Microbiology Microbiology Results: Microbiology 11/18/23 06:56 Blood Culture - Final Blood - Arterial No growth after 5 days. 11/18/23 06:56 Blood Culture - Final Blood - Arterial No growth after 5 days. 11/20/23 Unknown Gram Stain - Final Groin, Right Routine Culture - Final Strep agalactiae (Grp B) Procedures Date of Service Date of Service: 11/23/23 Progress Note: A&P Assessment and plan (1) Necrotizing soft tissue infection: Status: Acute Plan Right groin infection much improved in this 38-year-old male-plan to continue dressing changes IV antibiotics follow up on cultures. P.o. pain meds IV meds during his dressing changes. He understands and agrees with the above plan Time Spent With Patient Time: Total time managing care of this patient today ____ minutes. Quality Stroke Does the patient have a stroke diagnosis?: No VTE Prior VTE?: No VTE Risk Level:: Medical - moderate - high VTE Device Contraindication: N/A - Device Ordered VTE Drug Contraindication: N/A - Med Ordered
[2023-11-23 11:08] LABS: Anion Gap 14 (12-20); Blood Urea Nitrogen 13 mg/dL (9-16); Calcium 9.4 mg/dL (8.4-10.2); Carbon Dioxide 23 mmol/L (22-29); Chloride 105 mmol/L (96-108); Creatinine Clr Calc Pharmacy 184.6; Estimated Glomerular Filt Rate > 60; Glucose Random 121 mg/dL (60-115); Potassium 3.7 mmol/L (3.3-5.1); Sodium 138 mmol/L (135-145)
[2023-11-23] MEDS: Enoxaparin Sodium 40 MG/0.4 ML SYRINGE SUBCUT (11:52)
[2023-11-23] MEDS: Morphine Sulfate 4 MG/ML CARTRIDGE IVPUSH (13:15)
[2023-11-23] MEDS: cefTRIAXone sodium 2 GM in 0.9 % Sodium Chloride 50 ML IV (14:48)
[2023-11-23] MEDS: 0.9 % Sodium Chloride Flush 3 ML SYRINGE IVFLUSH ×2 (15:21→20:04)
[2023-11-23] MEDS: Atorvastatin Calcium 80 MG TABLET PO (20:02)
[2023-11-24 03:11] VITALS: BP 173/87; PULSE 65; RESP 18; TEMP 36; O2SAT 93
[2023-11-24 07:26] VITALS: BP 150/76; PULSE 62; RESP 18; TEMP 36.1; O2SAT 93
[2023-11-24] MEDS: Morphine Sulfate 4 MG/ML CARTRIDGE IVPUSH (07:46)
[2023-11-24 08:02] VITALS: BP 150/76
[2023-11-24] MEDS: 0.9 % Sodium Chloride Flush 3 ML SYRINGE IVFLUSH (08:02)
[2023-11-24] MEDS: Docusate Sodium 100 MG CAPSULE PO (08:02)
[2023-11-24] MEDS: lisinopriL 20 MG TABLET PO (08:02)
--- NOTE | 2023-11-24 08:37 | PM.PNGS ---
Subjective Subjective Date of Service: 11/24/23 <Michelle Cantor PA-C - Last Filed: 11/24/23 08:44> 11/24/23 <Silverio Bob MD - Last Filed: 11/24/23 14:56> Interval history: Feeling better. Able to ambulate to bathroom now. Pain minimal at rest. Receiving analgesics for dressing change but reports this does not help much. <Michelle Cantor PA-C - Last Filed: 11/24/23 08:44> Physical Exam Vital Signs: Vital Signs: Last Vital Signs Temp 97.0 F 11/24/23 07:26 Pulse 62 11/24/23 07:26 Resp 18 11/24/23 07:26 BP 150/76 H 11/24/23 08:02 Pulse Ox 93 11/24/23 07:26 O2 Del Method Room Air 11/24/23 07:26 O2 Flow Rate 3 11/21/23 15:05 BMI result Body Mass Index 50.9 <Michelle Cantor PA-C - Last Filed: 11/24/23 08:44> Const: General: comfortable, no acute distress and alert <Michelle Cantor PA-C - Last Filed: 11/24/23 08:44> Orientation/consciousness: patient oriented x3 <MK Armstrong Last Filed: 11/24/23 08:44> Resp: Effort & Inspection: normal respiratory effort <Michelle Cantor PA-C - Last Filed: 11/24/23 08:44> Skin: Other: right groin I&D with only small amount of erythema superiorly on thigh, still with moderate induration surrounding wound but overall improved, wound base clean and with good granulation tissue, no necrosis or purulence <Michelle Cantor PA-C - Last Filed: 11/24/23 08:44> Neuro: General: patient oriented x3 and moves all extremities <MK Armstrong Last Filed: 11/24/23 08:44> Objective Data Active Medications Acetaminophen (Acetaminophen 325 Mg Tablet) 650 mg PO Q6H PRN PRN Reason: Pain, Mild (Pain Scale 1-3), fever or headache Last Admin: 11/23/23 20:02 Dose: 650 mg Documented By: INES Atorvastatin Calcium (Atorvastatin Calcium 80 Mg Tablet) 80 mg PO BEDTIME [facility] Last Admin: 11/23/23 20:02 Dose: 80 mg Documented By: INES Calcium Carbonate (Calcium Carbonate 750 Mg Tab.Chew) 750 mg PO Q4H PRN PRN Reason: Heartburn Last Admin: 11/22/23 22:31 Dose: 750 mg Documented By: COLLIN Docusate Sodium (Docusate Sodium 100 Mg Capsule) 100 mg PO BID [facility] Last Admin: 11/24/23 08:02 Dose: 100 mg Documented By: KESHIA Enoxaparin Sodium (Enoxaparin Sodium 40 Mg/0.4 Ml Syringe) 40 mg SUBCUT Q24H [facility] Last Admin: 11/23/23 11:52 Dose: 40 mg Documented By: KESHIA Ceftriaxone Sodium 2 gm/ (Sodium Chloride) 50 mls @ 100 mls/hr IV Q24H [facility] Last Infusion: 11/23/23 15:21 Dose: Infused Documented By: KESHIA Lisinopril (Lisinopril 20 Mg Tablet) 20 mg PO DAILY [facility]; Protocol Last Admin: 11/24/23 08:02 Dose: 20 mg Documented By: KESHIA Morphine Sulfate (Morphine Sulfate 4 Mg/Ml Cartridge) 4 mg IVPUSH Q4H PRN; Protocol PRN Reason: Pain, Severe (Pain Scale 7-10) Last Admin: 11/24/23 07:46 Dose: 4 mg Documented By: KESHIA Polyethylene Glycol (Polyethylene Glycol 3350 17 Gm Powd.Pack) 17 gm PO DAILY PRN PRN Reason: Constipation Sodium Chloride (0.9 % Sodium Chloride Flush 3 Ml Syringe) 3 ml IVFLUSH QSHIFT [facility] Last Admin: 11/24/23 08:02 Dose: 3 ml Documented By: KESHIA <Michelle Cantor PA-C - Last Filed: 11/24/23 08:44> Labs CBC & Chem 7: 11/22/23 05:45 11/23/23 10:39 <Michelle Cantor PA-C - Last Filed: 11/24/23 08:44> Labs: Laboratory Results - last 24 hr 11/23/23 10:39 Anion Gap 14 Estim Creat Clear Calc 184.6 Estimated GFR > 60 Random Glucose 121 H Calcium 9.4 D <Michelle Cantor PA-C - Last Filed: 11/24/23 08:44> Microbiology Microbiology Results: Microbiology 11/18/23 06:56 Blood Culture - Final Blood - Arterial No growth after 5 days. 11/18/23 06:56 Blood Culture - Final Blood - Arterial No growth after 5 days. <Michelle Cantor PA-C - Last Filed: 11/24/23 08:44> Procedures Date of Service Date of Service: 11/24/23 <Michelle Cantor PA-C - Last Filed: 11/24/23 08:44> 11/24/23 <Silverio Bob MD - Last Filed: 11/24/23 14:56> Progress Note: A&P Assessment and plan (1) Necrotizing soft tissue infection: Status: Acute <Michelle Cantor PA-C - Last Filed: 11/24/23 08:44> Assessment and Plan: Patient continues to feel better Debridement site clean Looks well Continue wet-to-dry dressing changes, good wound care Antibiotics We will need a visiting nurse services Follow-up in the office Seen and examined independently <Silverio Bob MD - Last Filed: 11/24/23 14:56> Assessment and Plan: POD # 4 s/p excisional debridement, for necrotizing soft tissue infection right groin. Pain significantly improved and is able to ambulate now. Wound remains clean appearing and granulating well with significant improvement in erythema and induration. Stable for dc to home from surgical standpoint on PO abx with VNA services. Can f/u in office in 1 week for wound check. Can bathe just prior to VNA dressing change to help with induration. <Michelle Cantor PA-C - Last Filed: 11/24/23 08:44> Time Spent With Patient Time: Total time managing care of this patient today ____ minutes. <Michelle Cantor PA-C - Last Filed: 11/24/23 08:44> Quality Stroke Does the patient have a stroke diagnosis?: No <MK Armstrong Last Filed: 11/24/23 08:44> VTE Prior VTE?: No <MK Armstrong Last Filed: 11/24/23 08:44> VTE Risk Level:: Medical - moderate - high <MK Armstrong Last Filed: 11/24/23 08:44> VTE Device Contraindication: N/A - Device Ordered <MK Armstrong Last Filed: 11/24/23 08:44> VTE Drug Contraindication: N/A - Med Ordered <MK Armstrong Last Filed: 11/24/23 08:44>
--- NOTE | 2023-11-24 10:22 | P.DS_ITS ---
DS: Providers Provider Date of Service: 11/24/23 Date of admission: 11/18/23 11:07 Primary care physician: Divya Campoverde NP Consults: 11/20/23 11:29 Consult to General Surgery [place]ine [place] [facility] [place] [facility] Reason for consultation: Right groin abscess Has provider been notified: No 11/20/23 12:55 Consult to Infectious Diseases Routine Consulting [place] [facility] [place] [facility] Reason for consultation: right gright groin cellulitis Has provider been notified: Yes DS: Diagnosis Discharge Diagnosis (1) Necrotizing soft tissue infection: Status: Acute DS: Summary Hospital Course Hospital Course: Admission hpi Chief Complaint: cellulitis This is a 38-year-old male who presents to the emergency department with 2 day history of right upper thigh swelling and pain. He reports history of skin abscesses in the past. He has been using warm compresses at home with no significant improvement. He denies any associated fever or chills. In the emergency department his heart rate was elevated. Lab work was significant for leukocytosis of 14.6, lactic acid 3.0. He had a CT scan of the pelvis which showed subcutaneous edema and skin thickening along the medial aspect of the right upper thigh likely cellulitis, no evidence of fluid collection. In the emergency department he received IV ceftriaxone and IV vancomycin and the decision was made to admit him for further management of cellulitis Hospital course: Sepsis due to right thigh/groin cellulitis and necrotizing soft tissue infection: Initially admitted and treated for cellulitis of the right groin and initially treated with IV vancomycin. While CT initially did not revealed drainage abscess, patijordyn seem to have increased pain with more tenderness in the area and as such surgical consultation was requested and he would be taking to the OR excision and debridment on 11/19. Infectious disease also saw him at that time and adjustement his medications to Vancomycin, Clindamycin and Zosyn. wound culture from debridment showed Group BS strep, so the antibiotics was modified on 11/21 to Ceftriaxone. Pain marked improved, WBC is now normal. Sepsis resolved. Will change to oral Cefuroxime for. 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 TARA CPAP at night and with naps Morbid obesity Likely due to excessive calories BMI 47.3 We loss encouraged - on wegovy for weight loss Dispo: Home with VNA Time Attestation Discharge Coordination Time (in mins): 40 Quality: Safe Use of Opioids Does Pt have an Active Cancer Diagnosis on the Problem List?: No Quality: Stroke Does the patient have a stroke diagnosis?: No Physical Exam Vital Signs: Vital Signs: Last Vital Signs Temp 97.0 F 11/24/23 07:26 Pulse 62 11/24/23 07:26 Resp 18 11/24/23 07:26 BP 150/76 H 11/24/23 08:02 Pulse Ox 93 11/24/23 07:26 O2 Del Method Room Air 11/24/23 07:26 O2 Flow Rate 3 11/21/23 15:05 BMI result Body Mass Index 50.9 DS: Data Data Completed and Pending Completed studies during hospitalization [Text1]: Pending at discharge 11/20/23 15:53 Surgical [PTH] Routine Labs on day of discharge: Laboratory Results - last 24 hr 11/23/23 10:39 Sodium 138 Potassium 3.7 Chloride 105 Carbon Dioxide 23 Anion Gap 14 BUN 13 Creatinine 0.79 Estim Creat Clear Calc 184.6 Estimated GFR > 60 Random Glucose 121 H Calcium 9.4 D Discharge Plan Discharge Anticipated Discharge Date/Time: 11/24/23 10:14 Patient Disposition: Home Health Service Discharge Diagnosis: Right groin necrotizing soft tissue infection and cellulitis s/p I and D Referrals: Silverio Bob MD [Physician] - 1 Week Divya Campoverde NP [Primary Care Provider] - 1 Week Discharge Medications: New oxycodone 5 mg tablet 5 mg PO Q4H PRN (Reason: pain) Qty: 10 0RF Rx Instructions: Partial Fill upon patient request. Continued rosuvastatin 20 mg tablet 20 mg PO BEDTIME Wegovy 0.25 mg/0.5 mL pen injector 0.25 mg subcut TU@0900 ibuprofen 200 mg Tablet 400 mg PO Q8H PRN (Reason: Pain) acetaminophen [Tylenol Extra Strength] 500 mg tablet 1,000 mg PO Q6H PRN (Reason: pain or fever) lisinopril-hydrochlorothiazide 20-25 mg tablet 1 tab PO DAILY Discharge Orders: Discharge Order (Routine); Ordered 11/24/23 Ordered By: Jasiel Johnson Diet: Diabetic diet Activity on Discharge: As tolerated Stand Alone Forms: Patient Portal Discharge page Print Language: Singaporean Activity Restrictions/Additional Instructions: Wet to dry packing with fluffs followed by dry fluffs, abd dressing; change daily and as needed. Take 1 oxycodone tablet 30 min prior to dressing change. Can bathe prior to dressing change. Care Plan Goals: Resolution of right groin infection and healing of the wound Health Concerns: right groin necrotizing soft tissue infectiona and cellulitis Plan of Treatment: -Take Doxycycline as recommended -Wet to dry packing with fluffs followed by dry fluffs, abd dressing; change daily and as needed. Take 1 oxycodone tablet 30 min prior to dressing change. Can bathe prior to dressing change. -Follow up with Dr. Bob next week Assessment: See above
[2023-11-24 11:42] VITALS: BP 148/76
[2023-11-24] MEDS: hydroCHLOROthiazide 25 MG TABLET PO (11:42)
[2023-11-24] MEDS: Enoxaparin Sodium 40 MG/0.4 ML SYRINGE SUBCUT (11:42)
--- NOTE | 2023-11-24 12:04 | MHC.CM.PN ---
Patient is discharged to home today with [facility]. Patients brother Jae was contacted today. He has agreed to assist with dressing changes. He stated that his Mother will also be willing to perform wound care. Jae may be able to assist with transport as well. He stated that another brother will be available to transport as well. All discharge info has been sent to the agency.
--- NOTE | 2023-11-24 13:52 | W.MHC.F2F ---
Service Date Service Date: 11/24/23 Encounter Date of encounter: 11/24/23 Reasons for Services Signs and symptoms assessed: Right groin wound, unable to reach for dressing change Reason for senior care: wound care Homebound: Leaving the home is medically contraindicated at this time without the asist of a device and/or another person due th the listed conditions above and below. Reason homebound: pain with ambulation (due to wound in the groin) Homebound supporting statement: a large right groin wound that is impairing ambulation and therefore needs the assistance of another person Certification: Based on the above findings, I certify that this patient is confined to the home and needs intermittent senior care care, physical therapy and/or speech therapy, or continues to need occupational therapy. The patient is under my care, and I have initiated the establishment of the plan of care. The patient will be followed by a physician who will periodically review the plan of care. Time Spent With Patient Time: Total time managing care of this patient today ____ minutes.
[2023-11-24] MEDS: Amoxicillin/Potassium Clav 875 MG TABLET PO (14:02)
== END 2023-11-24 14:28 | disposition home health service (06) | DRG 720 ==
LOC: HO.ED 11:07 → HO.EDOVER 11:13 → HO.S3 12:00
PROVIDERS: Nurse Practitioner Family; Physician Assistant Surgical; Surgery; Admitting Provider Physician Assistant Medical; Emergency Provider Emergency Medicine; PCP Nurse Practitioner Primary Care; Visit Provider Internal Medicine
PROC: 0JBB0ZZ Excision of Perineum Subcutaneous Tissue and Fascia, Open Approach (ICD-10-PCS; principal; 2023-11-20 14:00)
DX: A41.9 Sepsis, unspecified organism (principal); L02.214 Cutaneous abscess of groin; I95.9 Hypotension, unspecified; K76.0 Fatty (change of) liver, not elsewhere classified; L03.115 Cellulitis of right lower limb; E66.01 Morbid (severe) obesity due to excess calories; G47.33 Obstructive sleep apnea (adult) (pediatric); B95.1 Streptococcus, group B, as the cause of diseases classified elsewhere; I10 Essential (primary) hypertension; E78.00 Pure hypercholesterolemia, unspecified; R73.03 Prediabetes; Z68.42 Body mass index [BMI] 45.0-49.9, adult; Z79.899 Other long term (current) drug therapy
CPT/HCPCS: 36415; 72193; 80048; 80051; 80076; 80202; 82550; 82565; 83036; 83605; 85025; 85027; 85610; 85652; 86140; 87040; 87070; 87147; 87205; 88304; 94660; 99285; J0330; J0696; J0736; J1100; J1170; J1650; J2250; J2270; J2405; J2543; J2704; J2795; J3010; J3370; J3371; J7120; Q9967

== ENCOUNTER → 2023-11-18 11:07 | Outpatient (BNV) | payer MEDICAID, SELFPAY | PROVIDERS: Admitting Provider Physician Assistant Medical; Emergency Provider Emergency Medicine; PCP Nurse Practitioner Primary Care; Visit Provider Surgery | DX: M79.89 Other specified soft tissue disorders (principal) | CPT/HCPCS: 11042; 11045; 99024; 99222; 99231; 99232; 99499 ==

== ENCOUNTER → 2023-11-18 11:07 | Outpatient (BNV) | payer MEDICAID, SELFPAY | PROVIDERS: Admitting Provider Physician Assistant Medical; Emergency Provider Emergency Medicine; PCP Nurse Practitioner Primary Care; Visit Provider Internal Medicine | DX: L03.115 Cellulitis of right lower limb (principal); L03.90 Cellulitis, unspecified; D72.829 Elevated white blood cell count, unspecified | CPT/HCPCS: 99223; 99232; 99233; 99239; G0180 ==

== ENCOUNTER → 2023-11-18 11:07 | Outpatient (BNV) | payer MEDICAID, SELFPAY | PROVIDERS: Admitting Provider Physician Assistant Medical; Emergency Provider Emergency Medicine; PCP Nurse Practitioner Primary Care; Visit Provider Internal Medicine | DX: L02.214 Cutaneous abscess of groin (principal); R79.89 Other specified abnormal findings of blood chemistry | CPT/HCPCS: 99222 ==

== ENCOUNTER 2023-11-30 14:20 | Outpatient (AMB) | payer MEDICAID, SELFPAY ==
--- NOTE | 2023-11-30 14:32 | A.OFFVIS_ITS ---
Intake Visit Reasons: s/p Rt groin debridement Intake Note: This patient presents for a post-op assessment status post excisional debridement, skin and thick subcutaneous fat, right groin for soft tissue necrotizing infection. (11/20/2023) Patient c/o; reports has VNA nurse doing dressing changes daily, reports pain. 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 He had undergone excisional debridement of the right groin for necrotizing soft tissue infection in the OR last November 20, 2023. He was discharged on postop day 3. He says he is doing well. He had been doing dressing changes on the area. He does complain of pain on the area although he says this is different kind of pain now from the open wound. [facility] Medical History Nocturnal hypoxemia due to obesity TARA (obstructive sleep apnea) Morbid obesity Sleep apnea Borderline diabetes Hypertension Pelvic fracture Surgical History History of incisional hernia repair (03/08/19) History of removal of cyst History of cystoscopy History of pelvic surgery (2003) History of hernia repair (08/08/13) Family History Father History of liver cancer Maternal Uncle History of cancer of unknown primary site Social History Household Members: Family Housing: Apartment Do you presently have visiting nurse or other home services: No Alcohol intake: never Patient Tobacco Use Status: Never used Tobacco Second Hand Smoke Exposure: No Substance Use Type: Marijuana service: No Review of Systems Const Denies chills and Denies fever(s) Physical Exam Const Other: Morbidly obese General: comfortable and no acute distress GI Palpation (GI): Soft to palpation Other: Right groin area - open wound clean, good healthy granulation tissue, open wound is deep into the subcutaneous fat, surrounding induration and cellulitis improved significantly Assessment & Plan Assessment & Plan (1) Necrotizing soft tissue infection: Code(s): M79.89 - Other specified soft tissue disorders Category: Medical Plan: Status post excisional debridement. The open wound is clean with good granulation tissue. I changes dressings and reapplied fresh wet-to-dry gauze packing and dry dressings on top I instructed him to continue wet-to-dry dressings daily. I will see him again for another wound check next week. The area has improved significantly with regards to induration. Coding Level of Care Code Est Pt Level 2 (72242) Diagnoses Necrotizing soft tissue infection M79.89
== END 2023-11-30 14:52 | disposition home or self-care (01) ==
PROVIDERS: PCP Nurse Practitioner Primary Care; Visit Provider Surgery
DX: M79.89 Other specified soft tissue disorders (principal)
CPT/HCPCS: 97602; 99212

== ENCOUNTER → 2023-11-30 14:20 | Outpatient (BNVA) | payer MEDICAID, SELFPAY | PROVIDERS: PCP Nurse Practitioner Primary Care; Visit Provider Surgery | DX: M79.89 Other specified soft tissue disorders (principal) | CPT/HCPCS: 99212 ==

== ENCOUNTER 2023-12-11 14:48 | Outpatient (AMB) | payer MEDICAID, SELFPAY ==
--- NOTE | 2023-12-11 14:48 | A.OFFVIS_ITS ---
Vital Signs 12/11/23 14:56 Weight 328 lb Intake Visit Reasons: 1 week follow up s/p Rt groin debridement Intake Note: This patient presents for a one week wound check, status post right groin debridement. Patient c/o; reports no complaints. 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 Accompanied by: Self / Same As Patient Allergies lactose [LACTOSE] Allergy (Intermediate, Verified 12/11/23 14:57) GI UPSET Medication List - Last Reconciled 12/11/23 by Silverio Bob MD acetaminophen (Tylenol Extra Strength) 1,000 mg PO Q6H PRN amoxicillin-pot clavulanate 875-125 mg 1 tab PO Q12H ibuprofen 400 mg PO Q8H PRN lisinopril-hydrochlorothiazide 20-25 mg 1 tab PO DAILY oxycodone 5 mg PO Q4H PRN rosuvastatin 20 mg PO BEDTIME semaglutide (weight loss) (Wegovy) 0.25 mg subcut TU@0900 HPI HPI 1 week follow up s/p Rt groin debridement: Details: He is here for follow-up for an open wound on the right groin after debridement for necrotizing soft tissue infection. He says that the wound is much better. He denies any significant pain. He says he has been doing his daily dressings every day. He denies any purulent drainage. [facility] Medical History Nocturnal hypoxemia due to obesity TARA (obstructive sleep apnea) Morbid obesity Sleep apnea Borderline diabetes Hypertension Pelvic fracture Surgical History History of incisional hernia repair (03/08/19) History of removal of cyst History of cystoscopy History of pelvic surgery (2003) History of hernia repair (08/08/13) Family History Father History of liver cancer Maternal Uncle History of cancer of unknown primary site Social History Household Members: Family Housing: Apartment Do you presently have visiting nurse or other home services: No Alcohol intake: never Patient Tobacco Use Status: Never used Tobacco Second Hand Smoke Exposure: No Substance Use Type: Marijuana service: No Review of Systems Const Denies chills and Denies fever(s) Physical Exam Const Other: Obese looking, looks well General: comfortable and no acute distress Resp Effort & Inspection: normal respiratory effort Skin Other: Residual open wound on the debridement site on the right groin, clean, good granulation tissue, wound surface areas narrowed to about a cm with and by 6 cm long, no induration, no pus Assessment & Plan Assessment & Plan (1) Necrotizing soft tissue infection: Code(s): M79.89 - Other specified soft tissue disorders Category: Medical Plan: Status post wide excisional debridement. He is doing very well. I changes dressings and applied wet-to-dry dressings. He is to continue daily wound care. I will see him in the office in about 3 weeks for another wound check. Coding Level of Care Code Global (02408) Diagnoses Necrotizing soft tissue infection M79.89
== END 2023-12-11 15:05 | disposition home or self-care (01) ==
LOC: HO.HGS 14:48
PROVIDERS: PCP Nurse Practitioner Primary Care; Visit Provider Surgery
DX: M79.89 Other specified soft tissue disorders (principal)
CPT/HCPCS: 99024

== ENCOUNTER → 2023-12-11 14:48 | Outpatient (BNVA) | payer MEDICAID, SELFPAY | PROVIDERS: PCP Nurse Practitioner Primary Care; Visit Provider Surgery | DX: M79.89 Other specified soft tissue disorders (principal) | CPT/HCPCS: 99212 ==

== ENCOUNTER 2023-12-27 11:18 | Outpatient (AMB) | payer MEDICAID, SELFPAY ==
--- NOTE | 2023-12-27 11:21 | A.OFFVIS_ITS ---
Vital Signs 12/27/23 11:37 Height 5 ft 9 in Weight 332 lb BMI 49.0 BP 134/76 Blood Pressure Location Rt brachial Position Standing Pulse 103 H Intake Visit Reasons: 2 week follow up s/p Rt groin debridement Intake Note: This patient presents for two week follow up s/p Rt groin debridement, wound check. Pt c/o; reports new ? cyst . 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 He states that the wound continues to heal. He describes an episode of swelling on the posterior aspect of the thigh 4 days ago but this resolved after he placed Vicks on this. [facility] Medical History Nocturnal hypoxemia due to obesity TARA (obstructive sleep apnea) Morbid obesity Sleep apnea Borderline diabetes Hypertension Pelvic fracture Surgical History History of incisional hernia repair (03/08/19) History of removal of cyst History of cystoscopy History of pelvic surgery (2003) History of hernia repair (08/08/13) Family History Father History of liver cancer Maternal Uncle History of cancer of unknown primary site Social History Household Members: Family Housing: Apartment Do you presently have visiting nurse or other home services: No Alcohol intake: never Patient Tobacco Use Status: Never used Tobacco Second Hand Smoke Exposure: No Substance Use Type: Marijuana service: No Review of Systems Const Denies chills and Denies fever(s) Card Denies chest pain, Denies dyspnea and Denies dyspnea on exertion Resp Denies cough, Denies dyspnea and Denies dyspnea on exertion GI Denies hematochezia and Denies change in bowel habits Denies hematuria and Denies difficulty urinating Musc Denies back pain and Denies limited range of motion Neuro Denies focal weakness and Denies convulsions Psych Denies depression and Denies mood swings Physical Exam Const Other: Morbidly obese General: comfortable and no acute distress Resp Effort & Inspection: normal respiratory effort Skin Other: Debridement site on the right groin area is now almost completely healed, small residual open wound with good granulation Assessment & Plan Assessment & Plan (1) Necrotizing soft tissue infection: Code(s): M79.89 - Other specified soft tissue disorders Category: Medical Plan: Status post debridement. The large open wound has now almost completely reepithelialized. He does not need to apply wet-to-dry dressings anymore I had a long discussion with him about the benefits of weight loss. He says he will continue to work on this There is no abscess or fluctuance on the area of swelling that he says he had on the posterior aspect of the thigh 4-5 days ago. I told him that if this happens, he should apply warm compresses. He can follow up on a p.r.n. basis. Coding Level of Care Code Est Pt Level 2 (18312) Diagnoses Necrotizing soft tissue infection M79.89
[2023-12-27 11:37] VITALS: BP 134/76; PULSE 103; BMI 49.0
== END 2023-12-27 11:43 | disposition home or self-care (01) ==
PROVIDERS: PCP Nurse Practitioner Primary Care; Referring Provider Nurse Practitioner Primary Care; Visit Provider Surgery
DX: M79.89 Other specified soft tissue disorders (principal)
CPT/HCPCS: 99212

== ENCOUNTER → 2023-12-27 11:18 | Outpatient (BNVA) | payer MEDICAID, SELFPAY | PROVIDERS: PCP Nurse Practitioner Primary Care; Visit Provider Surgery | DX: M79.89 Other specified soft tissue disorders (principal) | CPT/HCPCS: 99212 ==

== ENCOUNTER 2024-01-02 12:50 | Outpatient (RCR) | payer MEDICAID, SELFPAY | END 2024-01-12 10:20 | disposition home or self-care (01) | LOC: HO.WCC 12:50 | PROVIDERS: PCP Nurse Practitioner Primary Care; Visit Provider Physician Assistant | DX: Z09 Encounter for follow-up examination after completed treatment for conditions other than malignant neoplasm (principal); Z87.2 Personal history of diseases of the skin and subcutaneous tissue | CPT/HCPCS: 99212 ==

== ENCOUNTER 2024-01-16 13:47 | Outpatient (AMB) | payer MEDICAID, SELFPAY ==
--- NOTE | 2024-01-16 13:49 | A.OFFVIS_ITS ---
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 He said few months ago he had significant leg edema and then had developed cellulitis in his leg. Subsequently was prescribed semaglutide and has lost significant amount weight as per him. His leg edema is improved. He said in the last years he has continued to have exertional shortness of breath. Also intermittently gets retrosternal chest pressure. Not always exertional in nature. He is concerned about the symptoms. He said he is concerned about exercising as he notices heart rate gets elevated very quickly. He is taking all his medications. Blood pressure is now better optimized. He denies any prolonged palpitation irregular heartbeat. No lightheadedness, syncope. [facility] Medical History Nocturnal hypoxemia due to obesity TARA (obstructive sleep apnea) Morbid obesity Sleep apnea Borderline diabetes Hypertension Pelvic fracture Surgical History History of incisional hernia repair (03/08/19) History of removal of cyst History of cystoscopy History of pelvic surgery (2003) History of hernia repair (08/08/13) Family History Father History of liver cancer Maternal Uncle History of cancer of unknown primary site Social History Household Members: Family Housing: Apartment Do you presently have visiting nurse or other home services: No Alcohol intake: never Patient Tobacco Use Status: Never used Tobacco Second Hand Smoke Exposure: No Substance Use Type: Marijuana service: No Review of Systems Const Denies chills, Denies daytime sleepiness, Denies fatigue, Denies fever(s), Denies frequent falls, Denies poor appetite, Denies snoring, Denies stops breathing during sleep, Denies weakness, Denies weight gain and Denies weight loss Eyes Denies loss of vision ENT Denies dizziness and Denies hearing loss Card Denies chest pain, Denies claudication, Denies leg edema, Denies lightheadedness, Denies palpitations, Denies dyspnea, Denies dyspnea on exertion and Denies orthopnea Resp Denies cough, Denies excessive phlegm production, Denies dyspnea, Denies dyspnea on exertion, Denies snoring and Denies wheezing GI Denies abdominal pain, Denies hematochezia, Denies change in bowel habits, Denies nausea and Denies vomiting Denies dysuria and Denies urinary frequency Musc Denies arthralgias, Denies muscle weakness, Denies numbness and Denies other (frequent falls) Skin/Breast Denies nail changes and Denies rash Neuro Denies Abnormal speech present, Denies dizziness, Denies frequent falls, Denies loss of vision, Denies memory loss, Denies numbness and Denies weakness Psych Denies depression and Denies memory loss Endo Denies fatigue and Denies palpitations Hector/Lymph Reports easy bruising and Reports other (anemia) Aller/Immun Denies wheezing Physical Exam Vital Signs: Last Vital Signs Pulse 99 01/16/24 13:50 BP 122/76 01/16/24 13:50 BMI result Body Mass Index 47.5 Const General: cooperative, comfortable, no acute distress, alert and awake Nutritional Appearance: obese morbidly obese Orientation/consciousness: patient oriented x3 Limitations: no limitations HEENT Head: Yes normocephalic and Yes atraumatic Neck Neck: Yes trachea midline, Yes supple and Yes no JVD Resp Effort & Inspection: normal respiratory effort Auscultation: clear to auscultation bilaterally Cardio Jugular venous distension: no JVD Palpation: normal PMI Rate: regular rate Rhythm: regular rhythm Heart sounds: S1 normal heart sound present, S2 normal heart sound present, no click, no gallops, no murmurs and no rubs GI Auscultation: normal bowel sounds Skin General skin exam: no rashes or lesions noted Neuro General: patient oriented x3 and no focal motor deficits Speech: No Abnormal speech present Extrem General: Yes no clubbing, cyanosis or edema Psych Appearance: grossly normal Office Procedures EKG Details: EKG shows normal sinus rhythm with PACs with LVH with repolarization abnormalities [id number], Complete Assessment & Plan Assessment & Plan (1) Atypical chest pain: Code(s): R07.89 - Other chest pain Category: Medical Plan: Atypical chest pain this middle-aged man most likely due to hypertensive heart disease could also be due to musculoskeletal chest pain. However he has multiple risk factors for obstructive coronary disease. Would suggest a exercise myocardial perfusion imaging to evaluate for him given his baseline abnormal EKG. Also high likelihood of underlying hypertensive heart disease given his EKG and would suggest an echocardiogram to evaluate LV systolic and diastolic function to evaluate for hypertensive heart disease. His blood pressure is currently well optimized. Advised to continue to participate in current antihypertensive regimen. Continue to participate in physical activity as tolerated gradually built his aerobic tolerance. He has done well with current weight loss medical therapy. However he is main current comorbidity appears to be morbid obesity. Will refer him to bariatric surgery for further evaluation. Continue statin therapy with target goal LDL definitely less than 100 mg/dL. His leg edema is improved with weight loss and most likely suggestive of peripheral venous hypertension related to obesity. Continue participate in lower extremity compression therapy. Will follow up if need be. Thank you for allowing me to partake in his care. Orders: Orders CA stress test Today R07.89 - Other chest pain CA echo transthoracic complete Today R07.89 - Other chest pain NM cardiolite stress test 2 Weeks R07.89 - Other chest pain, R07.9 - Chest pain, unspecified Referrals Bariatric Surgery Referral E66.01 - Morbid (severe) obesity due to excess ca lories Coding Level of Care Code New Pt Level 4 (53585) Diagnoses Atypical chest pain R07. CPT Codes EKG - CPT: 10567-[id number], Complete ([id number])
[2024-01-16 13:50] VITALS: BP 122/76; PULSE 99; BMI 47.5
== END 2024-01-16 14:35 | disposition home or self-care (01) ==
PROVIDERS: PCP Nurse Practitioner Primary Care; Referring Provider Nurse Practitioner Primary Care; Visit Provider Internal Medicine Cardiovascular Disease
DX: R07.89 Other chest pain (principal)
CPT/HCPCS: 93010; 99204

== ENCOUNTER → 2024-01-16 13:47 | Outpatient (BNVA) | payer MEDICAID, SELFPAY | PROVIDERS: PCP Nurse Practitioner Primary Care; Visit Provider Internal Medicine Cardiovascular Disease | DX: R07.89 Other chest pain (principal); R94.31 Abnormal electrocardiogram [ECG] [EKG]; I45.81 Long QT syndrome; I49.1 Atrial premature depolarization | CPT/HCPCS: 93005; 99202 ==

== ENCOUNTER → 2024-02-16 14:42 | Outpatient (REF) | payer MEDICAID, SELFPAY ==
--- NOTE | 2024-02-16 14:44 | CA_ITS ---
Transthoracic Echocardiogram Patient (Last, First, Middle): Pete Smith, Gender: Male Date of : 1985 Age: 38 Procedure Date: 02/16/2024 Procedure Type: Transthoracic Echocardiogram Location: OP Height: 175.26 cm Weight: 148.78 kg BSA: 2.55 m2 Heart Rate: bpm BP: 130 / 88 mmHg Specialty Trimmer: TO Referring MD: Lui Kaur MD Symptoms: R07.89 - Other chest pain Study Quality: Technically Difficult/Contrast ECG Rhythm: Sinus Conclusions: - The calculated ejection fraction is 58% by biplane method. There is no evidence of regional wall motion abnormalities. - No obvious valvular pathology seen on this study. Findings Procedure Information Contrast agent, definity, is being given per protocol without apparent complications. Left Ventricle Normal left ventricular cavity size. The left ventricular systolic function is normal. The calculated ejection fraction is 58% by biplane method. There is no evidence of regional wall motion abnormalities. Diastolic function is normal for age. There is mild septal asymmetric hypertrophy. Right Ventricle Mildly increased right ventricular cavity size. There is normal right ventricular systolic function. Atria The left atrium is normal in size. The right atrium is mildly dilated. Aortic Valve There is a normal trileaflet aortic valve. There is no aortic valve stenosis. There is no aortic valve regurgitation. Mitral Valve The mitral valve appears normal. There is no mitral valve regurgitation. There is no mitral valve stenosis. Pulmonic Valve The pulmonic valve is likely normal. Tricuspid Valve There is trace tricuspid valve regurgitation. There is no evidence of pulmonary hypertension. Great Vessels The asc aorta is normal in size. Venous The inferior vena cava was not well visualized. The inferior vena cava is normal in size. Pericardium/Pleural There is no evidence of pericardial effusion. Prior Study Comparison No significant change compared to prior study dated: 01/01/2013. Recommendations, Care & Conclusions No obvious valvular pathology seen on this study. Measurements 2D Linear Measurements IVSd: 1.26 0.6-0.9/0.6-1.0 cm LVIDd: 5.57 3.9-5.3/4.2-5.9 cm LVIDd Index: 2.18 2.4-3.2/2.2-3.1 cm/m2 LVIDs: 3.38 2.0-3.6 cm LVPWd: 0.99 0.7-1.1 cm LA Diam: 4.20 2.7-3.8/3.0-4.0 cm LAIDs Index: 1.65 1.5-2.3 cm/m2 LV Mass: 318.38 67-162/88-224 g LV Mass Index: 124.86 43-95/49-115 g/m2 LVOT Diam: 2.50 3.0+(-)1.3 cm 2D Systolic Function EF 4C: 55.00 >55% EF 2C: 62.60 >55% EF BiP: 58.40 >55% Mitral Valve MV Pk E: 0.40 MV PK A: 0.34 MV Decel Time: 180.00 E/A: 1.20 E'Lateral: 8.49 E'Medial: 7.29 E/E' Med: 5.50 E/E' Lat: 4.70 PHT: 53.00 MVA PHT: 4.15 Decel Travis: 2.24 Aortic Valve AoV Pk Dameon: 1.47 AoV Mn Dameon: 0.86 AoV VTI: 0.27 AoV Pk Grad: 9.00 Aov Mn Grad: 4.00 OPAL Cont.VTI: 3.24 LVOT LVOT Pk Dameon: 0.89 LVOT Mn Dameon: 0.63 LVOT VTI: 0.18 LVOT Pk Grad: 3.00 LVOT Mn Grad: 2.00 LVOT Diam: 2.50 LVOT Area: 4.91 Diastolic Function MV Pk E: 0.40 MV Pk A: 0.34 E/A: 1.20 E'Medial: 7.29 E/E' Med: 5.50 E' Laterial: 8.49 E/E' Lat: 4.70 Right Ventricle TAPSE (mm): 19.30 TVS' Dameon: 10.80 Great Vessels Aorta Sinus of Valsalva: 3.57 2.0-3.[address] Ridge: 2.83 1.7-3.4 cm Ao Asc: 3.30 2.1-3.4 cm Updated in Other Vendor System with Status of Final Tyler Longoria MD electronically signed on 02/18/2024 11:06:27 AM with status of Final
== END ==
LOC: HO.CARD 14:42
PROVIDERS: PCP Nurse Practitioner Primary Care; Visit Provider Internal Medicine Cardiovascular Disease
DX: R07.89 Other chest pain (principal)
CPT/HCPCS: 93306; Q9957

== ENCOUNTER → 2024-02-16 14:44 | Outpatient (BNV) | payer MEDICAID, SELFPAY | PROVIDERS: PCP Nurse Practitioner Primary Care; Visit Provider Internal Medicine | DX: I42.2 Other hypertrophic cardiomyopathy (principal) | CPT/HCPCS: 93306 ==

== ENCOUNTER → 2024-03-05 08:16 | Outpatient (REF) | payer MEDICAID, SELFPAY ==
--- NOTE | ~2024-03-05 | NM_ITS ---
EXERCISE MYOCARDIAL PERFUSION STUDY INDICATION: Chest pain TECHNIQUE: The patient was brought in for an exercise perfusion study on 03/05/2024. Patient performed exercise as per Saad protocol and was injected 45 mCi of sestamibi once target heart rate was achieved. Images were obtained using the SPECT gamma camera interlaced with the gating device. Images were obtained in supine position. Resting perfusion study was performed on 03/08/2024. Patient was administered 45 mCi of sestamibi intravenously at rest. Images were then obtained in supine position. Total DLP 166 mGy-cm. Images were processed with the software and compared side to side in short axis, horizontal long axis and vertical long axis views. FINDINGS: Raw aquisition reviewed. The stress perfusion study showed mildly diminished tracer uptake in the mid anterolateral wall. With CT attenuation correction, there is improvement suggestive of soft tissue attenuation artifact. The gated study shows mildly reduced LV systolic function with calculated LVEF of 50%. LV cavity is normal in size. The gated study shows normal wall thickening and contraction of segments. Resting study shows reduced tracer uptake in the mid anterolateral wall. No significant change in its CT attenuation correction. Gating at rest reveals normal wall motion with ejection fraction at 54%. The findings are consistent with no clear reversible or fixed perfusion defects. NM/NM cardiolite stress test IMPRESSION: 1. Myocardial perfusion imaging study shows likely normal myocardial perfusion. 2. Gated LVEF is 50% during stress and 54% during rest. 3. Transient ischemic dilatation not present. EKG component of the test reported separately. Electronically signed by: Tyler Longoria MD 03/10/2024 12:44 PM EDT
--- NOTE | 2024-03-05 08:18 | CA_ITS ---
Acquisition Time: 2024-03-05 08:28:05 Total Exercise Time: 00:08:00 Test Indications: CHEST PAIN, SOB Medications: Protocol: NIESHA Max HR: 153 BPM 85% of Pred: 180 BPM Max BP: 170/080 mmHG Max Work Load: 10.1 METS Exercise stress test with exercise 8 min of Niesha protocol, achieving 85% MPHR, with moderate shortness of breath, no chest discomfort, with isolated PAC and PVCs, with normotensive response to exercise, with EKG changes meeting criteria for ischemia: horizontal ST depression inferiorly and V5-V6 which gradually improves in recovery. Nuclear images pending. Test reviewed with Dr Longoria. Referred By: Lui Kaur Overread By: MAIKOL MORENO
== END ==
LOC: HO.CARD 08:16
PROVIDERS: PCP Nurse Practitioner Primary Care; Visit Provider Internal Medicine Cardiovascular Disease
DX: R07.89 Other chest pain (principal); R07.9 Chest pain, unspecified
CPT/HCPCS: 78452; 93017; A9500

== ENCOUNTER → 2024-03-05 08:18 | Outpatient (BNV) | payer MEDICAID, SELFPAY | PROVIDERS: PCP Nurse Practitioner Primary Care; Visit Provider Nurse Practitioner Family | DX: R06.02 Shortness of breath (principal); I49.1 Atrial premature depolarization; I49.3 Ventricular premature depolarization | CPT/HCPCS: 78452; 93016; 93018 ==

== ENCOUNTER 2024-12-09 10:04 | Outpatient (AMB) | payer MEDICAID, SELFPAY ==
--- NOTE | 2024-12-09 10:08 | MHC.OFFVIS ---
Vital Signs 12/09/24 10:09 Height 5 ft 9 in Weight 328 lb 7.82 oz BMI 48.5 BP 166/98 H Blood Pressure Location Lt brachial Position Sitting Pulse 94 Pulse Source Pulse Oximeter Pulse Oximetry (%) 91 L Oxygen Delivery Method Room Air Intake Visit Reasons: Obstructive sleep apnea Intake Note: pt is here for follow up and has been having little using cpap , but received wrong supplies and needs to reach out to DME. 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 HE WAS DIAGNOSED TO HAVE OBSTRUCTIVE SLEEP APNEA WITH A LAB BASED SLEEP STUDY IN MAY 2020. HE WAS FOUND TO HAVE RATHER SEVERE OBSTRUCTIVE SLEEP APNEA WITH TOTAL SLEEP TIME AHI OF 87. HE WAS STARTED ON CPAP THERAPY INITIALLY HE WAS COMPLIANT. SUBSEQUENTLY HE LOST FOLLOW-UP AND LAST TIME HE WAS SEEN IN THE OFFICE WAS IN SEPTEMBER 2022. HE CLAIMS THAT HE HAS BEEN USING CPAP ONLY OFF AND ON SINCE THEN. 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 HE COMES TODAY FOR FOLLOW-UP AFTER ALL THESE YEARS. HE DOES HAVE SLEEPINESS DURING THE DAYTIME. HE IS DISABLED AND STAYS HOME MOST OF THE TIME. HE WAS STARTED ON OZEMPIC INJECTIONS BUT LATER ON DENIED COVERAGE BY INSURANCE. [facility] Medical History Nocturnal hypoxemia due to obesity TARA (obstructive sleep apnea) Morbid obesity Sleep apnea Borderline diabetes Hypertension Pelvic fracture Surgical History History of incisional hernia repair (03/08/19) History of removal of cyst History of cystoscopy History of pelvic surgery (2003) History of hernia repair (08/08/13) Family History Father History of liver cancer Maternal Uncle History of cancer of unknown primary site Social History Household Members: Family Housing: Apartment Do you presently have visiting nurse or other home services: No Alcohol intake: never Patient Tobacco Use Status: Never used Tobacco Second Hand Smoke Exposure: No Substance Use Type: Marijuana service: No Review of Systems Const All systems reviewed & are unremarkable except as noted in HPI and below Eyes Reports no additional complaints ENT Reports no additional complaints Card Denies chest pain, Denies irregular heart rhythm, Denies leg edema and Reports dyspnea on exertion Resp Reports as per HPI and Reports dyspnea on exertion GI Reports no additional complaints Reports no additional complaints Musc Reports back pain Skin/Breast Reports system reviewed and no additional complaints, except as documented Psych Reports mood swings (Controlled with med) Endo Reports no additional complaints Hector/Lymph Reports no additional complaints Physical Exam Vital Signs: Last Vital Signs Pulse 94 12/09/24 10:09 BP 166/98 H 12/09/24 10:09 Pulse Ox 91 L 12/09/24 10:09 Oxygen Delivery Method Room Air 12/09/24 10:09 BMI result Body Mass Index 48.5 Const General: comfortable, no acute distress, alert and awake Orientation/consciousness: patient oriented x3 HEENT Head: Yes normal to inspection General nose exam: No nasal polyps present and No nasal discharge present Face and sinus: Yes sinuses nontender Mouth: oropharynx abnormals (Crowded and narrow, Mallampati class 4) Throat: Yes posterior oropharynx normal Eyes General: appearance normal, both eyes and all related structures Neck Neck: Yes normal visual inspection, Yes no lymphadenopathy, Yes trachea midline, Yes no JVD and Yes other (Short and obese) Thyroid: Thyroid normal Chest Chest palpation & inspection: normal inspection of the chest, normal palpation of entire chest wall and no tenderness Resp Other: Percussion note not perceptible due to thick chest wall. Breath sounds are equal on both sides and lungs are clear without any wheezes rhonchi or Creps. Cardio Palpation: normal PMI Rate: regular rate Rhythm: regular rhythm Heart sounds: no gallops and no murmurs Peripheral pulses: Peripheral pulses 2+ throughout GI Palpation (GI): Soft to palpation, nontender, No hepatosplenomegaly present, no masses and Other GI palpation findings present (Lower midline scar from previous surgery) Auscultation: normal bowel sounds Back/Spine/Pelvis Thoracic/Lumbar Spine: thoracic and lumbar spine normal to inspection and thoraco-lumbar ROM limited Skin General skin exam: no rashes or lesions noted Neuro General: patient oriented x3 and no focal motor deficits Cranial nerves: Yes CN's II-XII intact bilaterally Extrem General: Yes normal to inspection, Yes no clubbing, cyanosis or edema and Yes no calf tenderness Psych Appearance: grossly normal and well kempt Speech and movement: Normal speech and movement present Results Reviewed Results Reviewed: COMPLIANCE REPORT FOR THE LAST 30 NIGHTS IS REVIEWED. IT SHOWED THAT HE USED HIS CPAP ONLY FOR 6 NIGHTS IN THE WHOLE MONTH. THERE IS SOME AIR LEAK AND RESIDUAL AHI 2.8 Assessment & Plan Assessment & Plan (1) Morbid obesity: Comment: HE HAS BEEN CHRONICALLY OVERWEIGHT, NOT ABLE TO DO MUCH EXERCISE. I ENCOURAGED HIM TO JOIN WEIGHT MANAGEMENT PROGRAM BUT HE CANNOT, DUE TO INSURANCE COVERAGE ISSUES. Code(s): E66.01 - Morbid (severe) obesity due to excess calories Category: Medical Plan: AGAIN TALKED TO HIM ABOUT WEIGHT REDUCTION, HE NEEDS TO JOIN THE WEIGHT MANAGEMENT PROGRAM, AND SHOULD BE CONSIDERED FOR ANTI OBESITY MEDS. (2) TARA (obstructive sleep apnea): Comment: VERY SEVERE OBSTRUCTIVE SLEEP APNEA WITH TOTAL SLEEP TIME AHI 87/HR , AND ALSO HAS NOCTURNAL HYPOXEMIA, WHICH IS EXPECTED TO RESOLVE ONCE HE STARTS USING CPAP REGULARLY. CURRENTLY HE IS NON COMPLIANT TO THE USE OF CPAP. HE CITES THE REASON BEING WRONG SUPPLIES SENT TO HIM. Code(s): G47.33 - Obstructive sleep apnea (adult) (pediatric) Category: Medical Plan: TALKED TO HIM ABOUT THE COMPLIANCE PROBLEM. WE WILL TALK TO DME PROVIDER AND SEE IF THE CAN GIVE HIM THE RIGHT SUPPLIES. HE IS URGE TO START USING IT ON A NIGHTLY BASIS. I WILL SEE HIM BACK IN 2 MONTHS AND GO OVER THE COMPLIANCE. (3) Nocturnal hypoxemia due to obesity: Comment: THIS IS PART OF OBSTRUCTIVE SLEEP APNEA AND ALVEOLAR HYPOVENTILATION AT NIGHT. HOPEFULLY IT WILL BE CORRECTED WITH THE USE OF CPAP. Code(s): E66.9 - Obesity, unspecified; G47.36 - Sleep related hypoventilation in conditions classified elsewhere Category: Medical Plan: AGAIN STRESSED THAT HE NEEDS TO USE THE CPAP EVERY NIGHT. Coding Level of Care Code Est Pt Level 3 (96355) Diagnoses Morbid obesity E66.01 TARA (obstructive sleep apnea) G47.33 Nocturnal hypoxemia due to obesity E66.9; G47.36
[2024-12-09 10:09] VITALS: BP 166/98; PULSE 94; O2SAT 91; BMI 48.5
--- OUTSIDE RECORDS SUMMARY | 2024-12-09 10:55 | XMS_ITS | Clinical Summary ---
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 1 kit 4 Active Tirzepatide-Weig ht Management (Zepbound) 2.5 MG/0.5ML solution auto-injectorInd ications:Class 3 severe obesity with serious comorbidity and body mass index (BMI) of 45.0 to 49.9 in adult, unspecified obesity type Inject 0.5 mL (2.5 mg) under the skin 1 (one) time per week. Do not start before May 22, 2024. 2 mL 5 Active fluconazole (Diflucan) 150 MG tabletIndication s:Tinea pedis of both feet Take 1 tablet (150 mg) by mouth 1 (one) time per week. 4 tablet 5 Active tolnaftate (Tinactin) 1 % creamIndications :Tinea pedis of both feet Apply topically 2 times daily. 28 g 2 5 Active olmesartan-hydro CHLOROthiazide (Benicar HCT) 20-12.5 MG tabletIndication s:Primary hypertension Take 1 tablet by mouth Once per day. 90 tablet 1 5 07/19/19 26 Active sildenafil (Viagra) 50 MG tabletIndication s:Erectile disorder Take 1 tab as needed 30-60 min before intercourse 20 tablet 5 Active albuterol 108 (90 Base) MCG/ACT inhalerIndicatio ns:Wheezing Inhale 2 puffs every 6 (six) hours if needed for wheezing. 18 g 11 5 09/07/19 26 Active Spacer/Aero-Hold ing Chambers (AeroChamber MV) inhalerIndicatio ns:Wheezing Use as instructed 1 each 2 5 Active ibuprofen 600 MG tabletIndication s:Acute URI Take 1 tablet (600 mg) by mouth every 6 (six) hours if needed for mild pain. 30 tablet 1 5 Active rosuvastatin (Crestor) 20 MG tabletIndication s:Mixed hyperlipidemia,H ypertriglyceride francine TAKE 1 TABLET BY MOUTH AT BEDTIME 90 tablet 3 5 Active Active Problems Problem Noted Date Diagnosed Date Abscess of right groin 03/22/2024 Elevated lactic acid level 03/22/2024 Incisional hernia 03/22/2024 Leukocytosis 03/22/2024 Necrotizing soft tissue infection 03/22/2024 Nocturnal hypoxemia due to obesity 03/22/2024 Edema of right lower extremity 09/28/2023 Bilateral lower extremity edema 09/28/2023 Assessment & Plan (09/28/2023 1:36 PM EDT): Stat order to r/o DVT done Dyspnea on exertion 09/28/2023 Assessment & Plan (09/28/2023 1:36 PM EDT): Cardiology referral Class 3 severe obesity due t o excess calories with serious comorbidity and body mass index (BMI) of 50.0 to 59.9 in adult 09/28/2023 Cellulitis of right leg 09/28/2023 History of fracture 04/25/2022 Hidradenitis 01/30/2015 Hyperlipidemia 04/02/2014 Bipolar disorder with psychotic features 014 Assessment & Plan (06/21/2022 4:32 PM EST): Presented with mood swings, depression alternating with irritability; social dysfunction; mild hallucinations (door knocking, shadows). Found Oxcarbazapine worsened his GERD. Doing better with Abilify 5 mg once daily, but would like to increase a little, so will now take Abilify 5 mg 1.5 tablets daily. To prevent nightmares will have Prazosin 1 mg at bedtime, which he can stop if he is no longer concerned about nightmares. F/U 6 weeks. He agrees with the plan. Assessment & Plan (05/03/2022 10:32 AM EST): With mood swings, depression alternating with irritability. Social dysfunction. Mild hallucinations (door knocking, shadows). Found Oxcarbazapine worsened his GERD. Will start Abilify 5 mg once daily. F/U 6 weeks. He agrees with the plan. Hypertriglyceridemia 02/12/2014 Backache 07/10/2013 Posttraumatic stress disorder 07/10/2013 Sleep apnea 02/19/2013 Hypertension 10/25/2012 Assessment & Plan (09/28/2023 1:36 PM EDT): I advise low Na diet, weight reduction and to take his blood pressure medication as soon as possible Obesity 10/25/2012 Encounters Date Type Department Care Team Description 11/15/2024 9:00 AM EDT Office Visit [facility] [address] [place] [address] Tarka, Gudelia, OD Open angle with borderline findings, low risk, bilateral (Primary Dx); Regular astigmatism, bilateral 11/15/2024 Travel 10/31/2024 Refill [facility] [address] [place] [address] Divya Campoverde, JACOB Mixed hyperlipidemia; Hypertriglyceridemia from Last 3 Months Immunizations Immunization Administration Dates Next Due Influenza injectable quadriv alent IIV4 with preservative 05/08/2015 Influenza injectable quadriv alent preservative free 02/22/2021,04/17/2019,02/23/2017,2013 Influenza, Split (incl. nolan fied surface antigen) 02/19/2013 Tdap 05/17/2024,10/25/2012 Family History Medical History Relation Name Comments Glaucoma Mother's Brother Relation Name Status Comments Mother's Brother Social History Tobacco Use Types Packs/Day Years Used Date Smoking Tobacco: Never Smokeless Tobacco: Current Tobacco Cessation:Ready to Q uit: No; Counseling Given: Yes Comments:Vaping 2% nicotine x1 year once per week Alcohol Use Standard Drinks/Week Comments Not Currently 0 (1 standard drink = 0.6 oz pur e alcohol) Depression Answer Date Recorded Patient Health Questionnaire-9 Score 3 06/21/2022 Housing Stability Answer Date Recorded What is your housing situation today? I have ayaka rob 11/27/[address] you li ve. Do you have problems with any of the following? None of the above 11/27/2023 Food Insecurity Answer Date Recorded Within the past 12 months, y ou worried that your food would run out before you got money to buy more: Never True 11/27/2023 Within the past 12 months,th e food you bought just didn't last and you didn't have enough money to get more: Never True 12/2023 Transportation Answer Date Recorded In the past 12 months, has l ack of transportation kept you from medical appts, meetings, work or from getting things needed for daily living? No 11/27/2023 Utilities Answer Date Recorded In the past 12 months, has t he electric, gas, oil or water company threatened to shut off services in your home? No 11/27/2023 Depression Answer Date Recorded Patient Health Questionnaire-2 Score 0 05/17/2024 Internet Access Answer Date Recorded Internet Access Q1 Yes 01/22/2024 Internet Access Q2 Not on file 01/22/2024 Sex and Gender Information Value Date Recorded Sex Assigned at Male 03/21/2022 10:18 AM EDT Legal Sex Male 10:18 AM EDT Gender Identity Male 03/21/2022 10:18 AM EDT Sexual Orientation Straight 03/21/2022 10 :18 AM EDT Last Filed Vital Signs Vital Sign Reading Time Taken Comments Blood Pressure 143/87 09/06/2024 1:03 PM EDT Pulse 87 09/06/2024 1:03 PM EDT Temperature 36.8 C (98.2 F) 09/06/2024 1:03 PM EDT Respiratory Rate 18 09/06/2024 1:03 PM EDT Oxygen Saturation 99% 09/06/2024 1:03 PM EDT Inhaled Oxygen Concentration - - Weight 152 kg (335 lb 3.2 oz) 09/06/2024 1:03 PM EDT Height 175.3 cm (5' 9 ) 07/19/2024 11:28 AM EST Body Mass Index 49.5 07/19/2024 11:28 AM EST Plan of Treatment Upcoming Encounters Date Type Department Care Team ([facility] st Contact Info) Description 02/21/2025 9:45 AM EDT Office Visit [facility] [address] [place] [address] Gudelia Lizarraga, OD [address] [place] [address] Health Maintenance Due Date Last Done Comments Disability Screening 1985 Family Planning (PISQ) 08/28/1998 HPV Vaccines (1 - Male 3-dose series) 08/28/1998 Hepatitis B Vaccines (1 of 3 - 19+ 3-dose series) 08/28/2002 Diabetes: Hemoglobin A1C 05/25/2021 05/25/2020 COVID-19 Vaccine ( season) 2024 SDOH Screening 11/26/2024 11/27/2023 Influenza Vaccine (#1) 2025 , 04/17/2019, 02/23/2017, Additional history exists Depression Screening 05/17/2025 05/17/2024, 06/21/19 23 Alcohol/Substance Use Screening 07/19/2025 07/19/2024 Tobacco Screening 11/15/2025 11/15/2024 Lipid Panel 09/27/2028 09/28/2023, 05/25/2020 Zoster Vaccines (1 of 2) 08/28/2033 DTaP/Tdap/Td Vaccines (3 - Td or Tdap) 05/17/2034 05/17/2024, 10/25/2012 RSV Patients and Patients Aged 60 years or older (1 - 1-dose 75+ series) 08/28/2058 HIV Screening Completed 09/28/2023 Hepatitis C Screening Completed 09/28/2023 HIB Vaccines Aged Out No longer eligi ble based on patient's age to complete this topic Hepatitis A Vaccines Aged Out No long er eligible based on patient's age to complete this topic IPV Vaccines Aged Out No longer eligi ble based on patient's age to complete this topic Meningococcal B Vaccine Aged Out No l onger eligible based on patient's age to complete this topic Meningococcal Vaccine Aged Out No arjun aristides eligible based on patient's age to complete this topic Pneumococcal Vaccine: Pediatrics (0 to 5 Years) and At-Risk Patients (6 to 49) Years Aged Out No longer eligible based on patient's age to complete this topic RSV under 20 months Aged Out No longe r eligible based on patient's age to complete this topic Rotavirus Vaccines Aged Out No longer eligible based on patient's age to complete this topic Procedures Procedure Name Priority Date/Time Associated Diagnosis Comments OCT, OPTIC NERVE - OU - BOTH EYES Routine 11/15/2024 9:00 AM EDT Open angle with borderline findings, low risk, bilateral HEPATITIS C AB W/REFL TO HCV RNA, QN, PCR Routine 09/28/2023 1:06 PM EDT Screening examination for STI HIV 1/2 ANTIGEN/ANTIBODY, FOURTH GENERATION W/RFL Routine 09/28/2023 1:06 PM EDT Screening examination for STI LIPID PANEL, STANDARD Routine 09/28/2023 1:06 PM EDT Primary hypertension HEMOGLOBIN A1C Routine 05/25/2020 11:13 AM EST from Last 3 Months or Most Recently Relevant to Health Maintenance Results * OCT, Optic Nerve - OU - Both Eyes (11/15/2024 9:00 AM EDT) Gudelia Rojas, OD - 11/18/2024 9:48 AM EDT OCT GLAUCOMA INTERPRETATION Reliability : OD: SS 44 - good quality image OS: SS 44 - good quality image Measurements RNFL: Avg RNFL thickness OD: 132 microns OS: 119 microns Test findings RNFL: RNFL OD: Robust RNFL 360. Baseline. RNFL OS: Robust RNFL 360. Baseline. Test findings GCL: GCL OD: Robust ganglion cell layer (GCL) 360. Baseline. GCL OS: Robust ganglion cell layer (GCL) 360. Baseline. 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 RTC for baseline VF us Gudelia Lizarraga OD OPHTH TOMOGRAPHY Final Result * Hepatitis C Antibody with Reflex to HCV, RNA, Quantitative, Real-Time PCR (09/28/2023 1:06 PM EDT) Pathologist [facility] Hepatitis C Antibody Nonreactive Nonreactive [facility] Comment:Antibodies to HCV no t detected; does not exclude early acuteHCV infection. Blood Venous blood specimen / Unknown 09/28/2023 1:06 PM EDT 09/28/2023 4:03 PM EDT Divya Campoverde ANP LAB BLOOD ORDERABLES Final Resul t Performing Organization Address [facility] Co de Phone Number [facility] [address] [place] [phone] * HIV-1/2 Antigen and Antibodies, Fourth Generation, with Reflexes (09/28/2023 1:06 PM EDT) Pathologist [facility] HIV AB/AG Nonreactive Nonreactive [facility] Comment:HIV-1 p24 Ag and/or HIV-1/HIV-2 Ab not detected.A test result that is nonreactive does not exclude thepossibility of exposure to or infection with HIV-1 and/orHIV-2. Nonreactive results in this assay for individualswith prior exposure to HIV-1 and/or HIV-2 may be due toantigen and antibody levels that are below the limit ofdetection of this assay.The [employer] HIV Ag/Ab Combo assay result andsupplemental assay results should be interpreted inconjunction with the patient's clinical presentation,history and other laboratory results. If the results areinconsistent with clinical evidence, additional testing issuggested to confirm the result. Blood Venous blood specimen / Unknown 09/28/2023 1:06 PM EDT 09/28/2023 4:03 PM EDT Divya Campoverde [facility] LAB BLOOD ORDERABLES Final Resul t Performing Organization Address [facility]/ZIP Co de Phone Number [facility] [address] [place] [phone] * (ABNORMAL) Lipid Panel, Standard (09/28/2023 1:06 PM EDT) Triglycerides 112 <150 mg/dL [facility] Comment:Desirable Triglyceri de: less than 150 mg/dLBorderline High Triglyceride 150-199 mg/dLHigh Triglyceride: 200-499 mg/dLVery High Triglyceride: greater than or equal to 5OO mg/dL Cholesterol 184 <200 mg/dL [facility] Comment:Desirable Cholestero l: less than 200 mg/dLBorderline High Cholesterol: 200-239 mg/dLHigh Cholesterol: greater than 239 mg/dL LDL Cholesterol Calculated 117(H) <100 mg/dL [facility] Comment:Desirable LDL: less than 100 mg/dLNear Optimal/Above Optimal LDL: 110- 129 mg/dLBorderline High LDL: 130-159 mg/dLHigh LDL: 160-189 mg/dLVery High LDL: greater than or equal to 190 mg/dL HDL Cholesterol 45 >40 mg/dL [facility] Comment:Desirable HDL: great er than 40 mg/dL Note: This HDL assay may give artificially low results in patients with liver disease. Blood Venous blood specimen / Unknown 09/28/2023 1:06 PM EDT 09/28/2023 4:03 PM EDT [facility] LAB BLOOD ORDERABLES Final Resul t [facility] [address] [place] [phone] [phone] * (ABNORMAL) HEMOGLOBIN A1c (05/25/2020 11:13 AM EST) Hemoglobin A1c 5.9(H) <5.7 % of total [facility] Comment: For someone without known diabetes, a hemoglobin A1c value between 5.7% and 6.4% is consistent with prediabetes and should be confirmed with a follow-up test. For someone with known diabetes, a value <7% indicates that their diabetes is well controlled. A1c targets should be individualized based on duration of diabetes, age, comorbid conditions, and other considerations. This assay result is consistent with an increased risk of diabetes. Currently, no consensus exists regarding use of hemoglobin A1c for diagnosis of diabetes for children. 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
== END 2024-12-09 10:26 | disposition home or self-care (01) ==
LOC: HO.HPS 10:05
PROVIDERS: PCP Nurse Practitioner Primary Care; Visit Provider Internal Medicine
DX: E66.01 Morbid (severe) obesity due to excess calories (principal); G47.33 Obstructive sleep apnea (adult) (pediatric); E66.9 Obesity, unspecified; G47.36 Sleep related hypoventilation in conditions classified elsewhere
CPT/HCPCS: 99213

== ENCOUNTER → 2024-12-09 10:04 | Outpatient (BNVA) | payer MEDICAID, SELFPAY | PROVIDERS: PCP Nurse Practitioner Primary Care; Visit Provider Internal Medicine | DX: G47.33 Obstructive sleep apnea (adult) (pediatric) (principal); E66.01 Morbid (severe) obesity due to excess calories; E66.9 Obesity, unspecified; G47.36 Sleep related hypoventilation in conditions classified elsewhere | CPT/HCPCS: 99212 ==